=== PATIENT | female | born 1950 | race Caucasian/White ===

== ENCOUNTER 2018-05-21 06:51 | Day surgery (SDC) | payer MEDICARE, OTHER, SELFPAY ==
--- NOTE | 2018-05-21 | PATH_ITS ---
[facility] Accession Number: [id number] . 01 Material submitted: . RANDOM COLON . 02 Diagnosis: Random Colon, Biopsies: Colonic mucosa with no diagnostic abnormality. Negative for active or microscopic colitis. Negative for granulomata, dysplasia and malignancy. . I/05/22/2018 . 02 Electronically signed: . Reji Taylor MD, PhD, Pathologist NPI- [id number] . 01 Gross description: . Received one formalin-filled container, labeled with the patient's name, labeled random colon, are multiple less than 0.1 cm to 0.4 cm portions of tissue, which are filtered, wrapped, and entirely submitted in one cassette. ([id number]) /FRR . 02 Pathologist provided ICD-10: R19.7 . 02 CPT . 761609 Performed at: [facility] [address], [place], [place] [id number] MD Dax Hyatt MD Phone: [phone] Performed at: 02 [facility] [address] [place], [place] [id number] MD Dinesh Okeefe MD Phone: [phone]
[2018-05-21 07:34] VITALS: BP 144/83; PULSE 80; RESP 15; TEMP 36; O2SAT 99
[2018-05-21] MEDS: SODIUM CHLORIDE 0.9% 1,000 ML 21 ML IV (07:40)
--- NOTE | 2018-05-21 07:46 | PM.HP.1 ---
History of Present Illness Date Patient Seen: 05/21/18 Time Patient Seen: 07:46 Chief complaint: [id number] COLONOSCOPY Narrative: 68-year-old female who recently presented with frequent loose stools. No associated nausea or vomiting. She has been tolerating a diet otherwise. No association between meals in her symptoms. No melena, hematochezia, bright red blood per rectum. No nocturnal symptoms. She has some occasional abdominal cramping but this is immediately relieved when she moves her bowels. No significant urgency or no history of incontinence. Denies fever or chills. Patient History Medical History Allergic rhinitis (Chronic 1979) Cataracts, bilateral (Chronic ~01/2018) Infertility (Chronic 1981) Kidney disease (Chronic 1960) Osteopenia (Chronic 2005) Rosacea (Chronic 1990) Chickenpox (Resolved 1954) Fractures (Resolved 2015) Measles (Resolved 1954) Mumps (Resolved 1955) Surgical History Hx of urethrotomy (Resolved 10/1970) Family & Social History Family History: Reviewed 05/21/18 by Vladislav Tyler MD Social History: household members spouse Meds Home Medications Medication Instructions Recorded Confirmed Type terbinafine HCl [Lamisil] 250 mg PO QDAY #30 tab 02/23/18 05/21/18 Rx alendronate 35 mg PO Q WEEK #12 tab 03/29/18 05/21/18 Rx calcium carbonate [Calcium 600] 1,200 mg PO BID 05/21/18 05/21/18 History cholecalciferol (vitamin D3) 1,000 unit PO DAILY 05/21/18 05/21/18 History [Vitamin D3] turmeric (bulk) [Curcumin] 500 mg MISCELLANEOUS BID 05/21/18 05/21/18 History Allergies Allergy/AdvReac Type Severity Reaction Status Date / Time Sulfa (Sulfonamide Allergy Unknown Rash Verified 05/21/18 07:15 Antibiotics) [SULFA (SULFONAMIDE ANTIBIOTICS)] Review of Systems Review of Systems All systems reviewed & are unremarkable except as noted in HPI and below and other (Review of systems has not changed since her initial evaluation March 28, 2018. Please see that document for further details.) Exam Vital Signs (past 8 hours): - 05/21/18 07:34 Temperature 96.8 F L Pulse Rate 80 Respiratory Rate 15 Blood Pressure 144/83 H Pulse Oximetry 99 Oxygen Delivery Method Room Air Narrative Exam Narrative: Thin elderly female in no acute distress. Alert oriented x3. is at the bedside. Neck supple Chest clear to auscultation. Regular rate and rhythm Abdomen soft, nondistended, nontender Extremities show no clubbing, cyanosis, or edema Objective Labs Labs: No recent laboratory or radiographic studies for review Assessment & Plan (1) Change in bowel habits: Current visit: Yes Status: Acute Plan: Assessment/Plan Narrative: 68-year-old female with recent change in bowel habits. Her last colonoscopy was 12 years ago. There is the possibility of colitis or other issues such as neoplastic changes. Colonoscopy is currently recommended. Technical details of the procedure were discussed. Risks, benefits, alternatives were explained. Risks including but not limited to sedation, aspiration, bleeding, pain, missed lesion, incomplete examination, need for further radiographic studies, need for further diagnostic studies, colonic perforation, need for major abdominal surgery, and all attendant risks of major surgery were explained in detail. All questions were answered to her satisfaction, and she voiced understanding. Consent was placed on the chart. We will proceed as above.
--- NOTE | 2018-05-21 07:50 | PM.PREOP ---
Pre-operative Note Interval Note Pre-op Check: History & Physical Reviewed by Physician, Exam Performed and History & Physical exam performed today H&P completed within 30 days and has changed as indicated here:: Patient seen and examined again today. No changes since her initial H and P from March 28, 2018. New document updated and on the chart. Proceed with colonoscopy today as planned. ASA Class (for procedural sedation): I
--- NOTE | 2018-05-21 07:57 | SUR.OPER ---
Lateral on padded OR bed, head on pillow, gel axillary roll in place, bottom leg bent with gel pad under knee to foot, upper leg straight and supported with pillows. Upper arm supported by pillows and secured over bottom arm to padded arm board. Safety belt at hip, tape over blanket lower legs.
[2018-05-21] MEDS: fentaNYL 250 MCG/5 ML INJ IV (08:14)
[2018-05-21] MEDS: MIDAZOLAM 5 MG/5 ML VIAL IV (08:14)
--- NOTE | 2018-05-21 08:24 | PM.OP.ENDO ---
Operative Date/Time/Diagnoses - Date of procedure: 05/21/18 Time of procedure: 08:24 Pre-op diagnosis: Change in bowel habits Post-op diagnosis: same Procedure & Clinicians Study performed: 1. Sedation per surgeon 2. Colonoscopy with cold forceps biopsy Same procedure as scheduled: Yes Indications: 68-year-old female who presented recently with change in bowel habits. It had also been 12 years since her last colonoscopy. Endoscopy was once again recommended. Surgeon: Vladisalv Tyler Procedure Notes SCOAP/Timeout: Yes Procedure in detail: After obtaining informed consent, the patient was brought to the GI suite and placed in the left lateral decubitus position on the examination table. After placement of appropriate monitors, the patient was given incremental doses of Versed and Fentanyl until an appropriate level of sedation was achieved. A time out was held per SCOAP protocol. A digital rectal examination was performed and did not reveal any masses or obstructing lesions. The colonoscope was gently passed into the patient's anus and the entire colon navigated to the level of the cecum with minimal difficulty. Terminal ileum was intubated and noted to be grossly normal. Once in the cecum, the scope was withdrawn being sure to go before and beyond all mucosal folds and prominences and get an excellent examination. The findings are noted above. At the level of the rectal vault, the scope was retroflexed and the internal anal canal was examined. The scope was straightened and air aspirated from the colon. The instrument was removed from the patient's body and the procedure was concluded. The patient was allowed to awaken from sedation without difficulty and taken to the post-anesthesia care unit in good condition. Scope withdrawal time: 8:29 min Sedation minutes: 22 Findings: diverticulosis and other findings (Grossly normal colon, rectum, and terminal ileum) Specimen(s): other (Random colon biopsies) Recommendations: Colonscopy in 10 years and High fiber diet Plan for aftercare: 1. Discharged home Follow up: weeks (Two weeks in surgery clinic) Disposition: PACU
[2018-05-21 08:25] VITALS: BP 105/71; PULSE 75; RESP 12; TEMP 37.3; O2SAT 99
[2018-05-21 08:30] VITALS: BP 105/69; PULSE 72; RESP 13; O2SAT 99
[2018-05-21 08:41] VITALS: BP 106/67; PULSE 74; RESP 15; TEMP 36.8; O2SAT 100
== END 2018-05-21 08:56 | disposition home or self-care (01) ==
PROVIDERS: Family Provider Specialist; PCP Family Medicine; Visit Provider Surgery
PROC: 0DJD8ZZ Inspection of Lower Intestinal Tract, Via Natural or Artificial Opening Endoscopic (ICD-10-PCS; CPT 45378; principal; 2018-05-21 07:45)
DX: R19.4 Change in bowel habit (principal); K57.30 Diverticulosis of large intestine without perforation or abscess without bleeding
CPT/HCPCS: 45380; 99152; J2250; J3010

== ENCOUNTER → 2018-08-09 12:38 | Outpatient (CLI) | payer MEDICARE, OTHER, SELFPAY ==
--- NOTE | 2018-08-09 12:40 | DI.MG.S_ITS ---
BILATERAL DIGITAL DIAGNOSTIC MAMMOGRAM 3D/2D SHORT-TERM FOLLOW-UP: 08/09/2018 CLINICAL: Patient returns for 6 month follow up of right breast, due for bilateral exam. Comparison is made to exams dated: 01/17/2018 mammogram, 05/15/2017 mammogram, and 05/10/2017 mammogram - [facility]. The tissue of both breasts is heterogeneously dense. This may lower the sensitivity of mammography. Previously noted 3 mm cluster of calcifications in the right breast at 11 o'clock posterior depth remains stable. There are subtle calcifications in the upper left breast at 12 o'clock position posterior depth that are slightly more prominent than on comparison exams. No other significant masses, calcifications, or other findings are seen in either breast. IMPRESSION: PROBABLY BENIGN Previously noted 3 mm cluster of calcifications in the right breast at 11 o'clock posterior depth remains stable and are probably benign. Subtle calcifications in the upper left breast at 12 o'clock position posterior depth are also probably benign. A follow-up diagnostic mammogram in 6 months is recommended to demonstrate stability of both areas. This exam was interpreted at Station ID: [id number]. NOTE: For mammograms, a report in lay terms will be sent to the patient. Approximately 15% of breast malignancies will not be visualized mammographically. In the management of a palpable breast mass, a negative mammogram must not discourage biopsy of a clinically suspicious lesion. Electronically Signed By: Anshul Cummings M.D. ecl/:08/09/2018 21:56:11 copy to: JAMES CANSECO letter sent: Followup Recommended ACR BI-RADS Category 3: Probably benign [id number]
== END ==
PROVIDERS: PCP Family Medicine; Visit Provider Family Medicine
DX: R92.1 Mammographic calcification found on diagnostic imaging of breast (principal)
CPT/HCPCS: 77066; G0279

== ENCOUNTER → 2019-02-07 14:41 | Outpatient (CLI) | payer MEDICARE, OTHER, SELFPAY ==
--- NOTE | 2019-02-07 14:43 | DI.MG.S_ITS ---
BILATERAL DIGITAL DIAGNOSTIC MAMMOGRAM 3D/2D SHORT-TERM FOLLOW-UP: 02/07/2019 CLINICAL: Short term follow up for bilateral breasts. Comparison is made to exams dated: 08/09/2018 mammogram, 01/17/2018 mammogram, 05/15/2017 mammogram, 05/10/2017 mammogram, and 03/14/2016 mammogram - [facility]. The tissue of both breasts is heterogeneously dense. This may lower the sensitivity of mammography. There is a stable benign fine calcification in the right breast middle depth central to the nipple seen on the craniocaudal view only. There is a possible 5 mm oval mass with an indistinct margin and punctate calcifications in the left breast posterior depth superior region seen on the mediolateral oblique view only. No other significant masses or calcifications are seen in either breast. IMPRESSION: INCOMPLETE: NEEDS ADDITIONAL IMAGING EVALUATION The possible 5 mm oval mass in the left breast posterior depth superior region seen on the mediolateral oblique view only likely represents focal glandular tissue or a degenerating fibroadenoma and is indeterminate. An ultrasound is recommended which was immediately performed following this exam. Right breast calcifications are stable, benign appearance. This exam was interpreted at Station ID: [id number]. NOTE: For mammograms, a report in lay terms will be sent to the patient. Approximately 15% of breast malignancies will not be visualized mammographically. In the management of a palpable breast mass, a negative mammogram must not discourage biopsy of a clinically suspicious lesion. Electronically Signed By: Rosalina valladares/:02/07/2019 18:22:14 copy to: JAMES RECIO BI-RADS Category 0: Incomplete [id number]
--- NOTE | 2019-02-07 16:33 | DI.US.S_ITS ---
LIMITED ULTRASOUND OF LEFT BREAST: 02/07/2019 CLINICAL: Additional evaluation requested from prior study. Family history of breast cancer. Comparison is made to exams dated: 02/07/2019 mammogram, 08/09/2018 mammogram, and 05/10/2017 mammogram - [facility]. Ultrasound of the left breast 12 o'clock region in the area of mammographic finding was performed. No abnormalities were seen sonographically in the left breast. IMPRESSION: PROBABLY BENIGN No sonographic correlate to mammographic finding of possible mass in 12o'clock region with few punctate calcifications. The mammographic finding is likely benign dense glandular tissue adjacent to benign calcifications. A follow-up mammogram in 6 months is recommended to demonstrate stability of this area is recommended. Findings and recommendations were conveyed to the patient by the technologist. This exam was interpreted at Station ID: [id number]. Electronically Signed By: Rosalina valladares/:02/07/2019 18:26:11 copy to: JAMES CANSECO letter sent: Followup Recommended Ultrasound BI-RADS: 3 Probably benign
== END ==
PROVIDERS: PCP Family Medicine; Visit Provider Family Medicine
DX: R92.8 Other abnormal and inconclusive findings on diagnostic imaging of breast (principal)
CPT/HCPCS: 76642; 77066; G0279

== ENCOUNTER → 2019-04-04 14:28 | Outpatient (CLI) | payer MEDICARE, OTHER, SELFPAY ==
--- NOTE | 2019-04-04 14:31 | DI.RAD.S_ITS ---
PROCEDURE: XR LUMBAR SPINE 2-3V INDICATIONS: low back pain left hip pain TECHNIQUE: 3 views of the lumbar spine were acquired. COMPARISON: None. FINDINGS: Bones: No fracture or focal osseous destruction. Mild dextrocurvature. Moderate narrowing of the L2-L3 disc space. There is mild narrowing of the remaining lumbar disc spaces. Straightening of the normal lumbar lordosis. Soft tissues: Overlying bowel gas pattern is normal. No suspicious soft tissue calcifications. IMPRESSION: Diffuse lumbar spondylosis and facet arthropathy, most pronounced at L2-L3. Mild dextrocurvature. Dictated by: Chucky Vazquez M.D. on 04/04/2019 at 16:02 Approved by: Chucky Vazquez M.D. on 04/04/2019 at 16:03
--- NOTE | 2019-04-04 14:31 | DI.RAD.S_ITS ---
PROCEDURE: XR HIP W PEL IF DONE LT 2V INDICATIONS: low back pain TECHNIQUE: 2 views of the hip were acquired. COMPARISON: None. FINDINGS: Bones: No fractures or dislocations. No suspicious bony lesions. The visualized pelvic ring appears intact. Presumed bone projecting in the left iliac wing. At the left hip joint, Scattered degenerative subchondral sclerosis and spurring. Mild joint space narrowing. Soft tissues: No suspicious soft tissue calcifications or masses. IMPRESSION: Mild left hip joint degeneration. Dictated by: Chucky Vazquez M.D. on 04/04/2019 at 16:01 Approved by: Chucky Vazquez M.D. on 04/04/2019 at 16:02
[2019-04-04 15:19] LABS: Add Manual Diff / Slide Review NO; Basophils Absolute Auto 0 /uL (0-100); Basophils Percent Auto 0.5 % (0-2); Eosinophils Absolute Auto 0 /uL (0-450); Eosinophils Percent Auto 0.5 % (2-4); Hematocrit 41.2 % (36-46); Hemoglobin 13.4 g/dL (12.0-16.0); Lymphocytes Absolute Auto 1400 /uL (1100-4500); Lymphocytes Percent Auto 24.6 % (25-40); Mean Corpuscular HGB Conc 32.4 % (30-36); Mean Corpuscular Hemoglobin 29.9 PG (26-34); Monocytes Absolute Auto 500 /uL (0-900); Monocytes Percent Auto 8.4 % (3-14); Neutrophils Absolute Auto 3900 /uL (1500-7000); Platelet Count 280 X10^3/uL (150-400); Red Blood Cell Count 4.48 X10^6/uL (4.0-5.2); Red Cell Distribution Width 13.5 % (11.6-14.8); White Blood Cell Count 5.9 X10^3/uL (4.5-11.0)
[2019-04-04 15:59] LABS: Appearance Urine UA CLEAR; Bilirubin Urine UA NEGATIVE (NEGATIVE); Color Urine UA YELLOW; Glucose Urine UA NEGATIVE (Negative); Ketones Urine UA NEGATIVE (NEGATIVE); Leukocyte Esterase Urine UA NEGATIVE (NEGATIVE); Nitrite Urine UA NEGATIVE (Negative); Occult Blood Urine UA NEGATIVE (Negative); Protein Urine UA NEGATIVE (Negative); Specific Gravity Urine UA >=1.030 (1.000-1.035); Urobilinogen Urine UA 0.2 E.U./dL (0.2)
[2019-04-04 16:01] LABS: Alanine Aminotransferase 34 IU/L (9-52); Albumin 4.3 g/dL (3.5-5.0); Albumin Globulin Ratio 1.3 (1.0-2.8); Alkaline Phosphatase 64 U/L (38-126); Aspartate Aminotransferase 29 IU/L (14-36); BUN Creatinine Ratio 19.2 (6-22); Bilirubin Total 0.5 mg/dL (0.2-1.3); Blood Urea Nitrogen 23 mg/dL (7-17); Calcium 9.8 mg/dL (8.4-10.2); Carbon Dioxide 29 mmol/L (22-32); Chloride 101 mmol/L (98-107); Cholesterol 148 mg/dL (140-199); Estimated Glomerular Filt Rate 44.7 mL/min (>60); Globulin 3.2 g/dL (1.7-4.1); Glucose 116 mg/dL (80-110); HDL Cholesterol 56 mg/dL (40-60); HEMOLYSIS < 15 (0-50); LDL Cholesterol Calculated 75 mg/dL (<100); Potassium 4.4 mmol/L (3.4-5.1); Sodium 139 mmol/L (137-145); Total Protein 7.5 g/dL (6.3-8.2); Triglycerides 86 mg/dL (35-150)
[2019-04-04 16:31] LABS: Thyroid Stimulating Hormone 1.47 uIU/mL (0.47-4.68)
== END ==
PROVIDERS: PCP Family Medicine; Visit Provider Family Medicine
DX: M54.5 Low back pain (principal); M25.552 Pain in left hip; Z13.220 Encounter for screening for lipoid disorders; Z13.29 Encounter for screening for other suspected endocrine disorder; Z51.81 Encounter for therapeutic drug level monitoring
CPT/HCPCS: 36415; 72100; 73502; 80053; 80061; 81003; 84443; 85025

== ENCOUNTER → 2019-04-24 10:17 | Outpatient (CLI) | payer MEDICARE, OTHER, SELFPAY | PROVIDERS: PCP Family Medicine; Visit Provider Family Medicine | DX: M85.852 Other specified disorders of bone density and structure, left thigh (principal); Z78.0 Asymptomatic menopausal state; Z82.62 Family history of osteoporosis | CPT/HCPCS: 77080 ==

== ENCOUNTER → 2019-07-03 09:44 | Outpatient (CLI) | payer MEDICARE, OTHER, SELFPAY ==
[2019-07-03 11:05] LABS: Alanine Aminotransferase 22 IU/L (9-52); Albumin 4.2 g/dL (3.5-5.0); Albumin Globulin Ratio 1.2 (1.0-2.8); Alkaline Phosphatase 68 U/L (38-126); Aspartate Aminotransferase 37 IU/L (14-36); BUN Creatinine Ratio 28.8 (6-22); Bilirubin Total 0.8 mg/dL (0.2-1.3); Blood Urea Nitrogen 23 mg/dL (7-17); Calcium 9.4 mg/dL (8.4-10.2); Carbon Dioxide 30 mmol/L (22-32); Chloride 103 mmol/L (98-107); Estimated Glomerular Filt Rate > 60.0 mL/min (>60); Globulin 3.6 g/dL (1.7-4.1); Glucose 89 mg/dL (80-110); HEMOLYSIS < 15 (0-50); Sodium 140 mmol/L (137-145); Total Protein 7.8 g/dL (6.3-8.2)
[2019-07-03 11:08] LABS: Hemoglobin A1C% w Est Avg Glu 5.2 % (4.0-6.0)
== END ==
PROVIDERS: PCP Family Medicine; Visit Provider Family Medicine
DX: N28.9 Disorder of kidney and ureter, unspecified (principal); R73.9 Hyperglycemia, unspecified
CPT/HCPCS: 36415; 80053; 83036

== ENCOUNTER → 2019-08-15 13:13 | Outpatient (CLI) | payer MEDICARE, OTHER, SELFPAY ==
--- NOTE | 2019-08-15 13:14 | DI.MG.S_ITS ---
BILATERAL DIGITAL DIAGNOSTIC MAMMOGRAM 3D/2D SHORT-TERM FOLLOW-UP: 08/15/2019 CLINICAL: Patient returns for a 6 month follow up of the left breast. Comparison is made to exams dated: 08/09/2018 mammogram, 02/07/2019 mammogram, and 05/10/2017 mammogram - [facility]. The tissue of both breasts is heterogeneously dense. This may lower the sensitivity of mammography. There are grouped fine calcifications in the left breast at 12 o'clock posterior depth. These are not significantly changed. There also is an irregular equal density asymmetry with an indistinct margin in the left breast at 12 o'clock posterior depth. This is less prominent. No other significant masses, calcifications, or other findings are seen in either breast. IMPRESSION: PROBABLY BENIGN The grouped fine calcifications in the left breast at 12 o'clock posterior depth are probably benign. The irregular equal density asymmetry in the left breast at 12 o'clock posterior depth is probably benign. A follow-up mammogram in 12 months is recommended. This exam was interpreted at Station ID: [id number]. NOTE: For mammograms, a report in lay terms will be sent to the patient. Approximately 15% of breast malignancies will not be visualized mammographically. In the management of a palpable breast mass, a negative mammogram must not discourage biopsy of a clinically suspicious lesion. Electronically Signed By: Dax patten/shahram:08/15/2019 14:03:25 copy to: JAMES CANSECO letter sent: Followup Recommended ACR BI-RADS Category 3: Probably benign [id number]
== END ==
PROVIDERS: PCP Family Medicine; Visit Provider Family Medicine
DX: R92.8 Other abnormal and inconclusive findings on diagnostic imaging of breast (principal); R92.1 Mammographic calcification found on diagnostic imaging of breast; N64.89 Other specified disorders of breast
CPT/HCPCS: 77066; G0279

== ENCOUNTER 2019-11-21 08:15 | Outpatient (RCR) | payer MEDICARE, OTHER, SELFPAY ==
--- NOTE | 2019-09-13 15:20 | PT.OIE ---
Current Diagnoses Pain in unspecified hip (09/13/19) Low back pain (09/13/19) Muscle weakness (generalized) (09/13/19) Other symptoms and signs involving the musculoskeletal system (09/13/19) Past Medical History (Last Reviewed 05/22/18 @ 12:38 by Amanda Gong DO) Allergic rhinitis (Chronic 1979) Cataracts, bilateral (Chronic ~01/2018) Change in bowel habits (Acute) Chickenpox (Resolved 1954) Fractures (Resolved 2015) Infertility (Chronic 1981) Kidney disease (Chronic 1960) Measles (Resolved 1954) Mumps (Resolved 1955) Osteopenia (Chronic 2005) Rosacea (Chronic 1990) Past Surgical History (Last Reviewed 05/22/18 @ 12:38 by Amanda Gong DO) Hx of urethrotomy (Resolved 10/1970) Visit Care Team Role Provider Type Amanda Gong DO Attending Provider Physician Primary Care Provider Specialty: [facility] Address: [address] [place] [address], [address], [facility] Email: [email or web address] Physical Therapy Initial Evaluation PT-OP-A Visit Information Start: 09/12/19 16:46 Freq: Status: Active Protocol: Document 09/13/19 09:59 LRN (Rec: 09/13/19 11:17 LRN [id number]) Out-Patient Physical Therapy Visit Information Visit Information Visit Type Initial Evaluation Visit Start Time 10:00 Visit Stop Time 10:52 Total Visit Minutes 52 Visit Number 1 Number of ROLLER PRINTER Visits 0 Evaluation Information Evaluation Date 09/13/19 Precautions Precautions Osteopenia PT-OP-B Current Condition Start: 09/12/19 16:46 Freq: Status: Active Protocol: Document 09/13/19 09:59 LRN (Rec: 09/13/19 11:17 LRN [id number]) Current Condition History of Current Condition Onset Date 2 yrs ago in back, 1 yr ago hip pain Current Complaints L hip and back pain. History of Current Condition Intermittent L LBP. L back pain worse in prolonged sitting (>1hr) having stiffness getting out of car. Standing cooking more than 1 hours, can't finish cooking due to pain and fatigue. Can' t lawn sprinkler servicer one place on cement due to pain. Prior Treatments and Tests X-ray of hip: Mild L hip jt degeneration. X-ray of LB: Diffuse lumbar spondylosis and facet arthropathy, pronounced L2-L3. Treatment Goals Patient/Caregiver Goals Pt goal is to do exercise that eliminates back pain and arthritis pain in the hip. Prior Functional Status Baseline Function- ADL's Independent Baseline Function- Mobility Independent Baseline Function- Gait Normal Baseline Function- Recreation/Hobbies Exercised in the gym. Current Functional Impairments (Reported) Functional Limitations- ADL's Sleeping limited due to L hip pain waking. Functional Limitations- Mobility/Gait None Functional Limitations- Recreation/ Can't do any movements Hobbies requiring rotation of the L hip or lumbar extension due to pain. Personal Factors Other Personal Factors That May Effect Osteopenia Therapy/Recovery PT-OP-C Subjective Start: 09/12/19 16:46 Freq: Status: Active Protocol: Document 09/13/19 09:59 LRN (Rec: 09/13/19 11:17 LRN [id number]) Patient Questionnaires Oswestry Low Back Index Oswestry Score 6 Oswestry Impairment 1 to 19% Impaired (Score 1-19) OP-PT Pain Assessment Pain Assessment Grid Paper Pain Assessment Grid Completed Yes Location L Pain Location Details L SIJ radiating to lateral hip when standing or sit in car > 1hr. Intensity 3 Description Aching,Dull Variations/Patterns Dull back , Hip burning Comments Pain Comments Sitting pain comes in long car rides or in chairs without a back support. Standing pain is alleviated by sitting to rest. PT-OP-H Neuro Start: 09/12/19 16:46 Freq: Status: Active Protocol: Document 09/13/19 09:59 LRN (Rec: 09/13/19 11:17 LRN [id number]) Sensation Evaluation Gross Sensation Gross Sensation WNL Deep Tendon Reflex & Clonus Assessment Deep Tendon Reflex Bilateral Achilles Deep Tendon Reflex 2+ Normal Bilateral Patellar Deep Tendon Reflex 3+ Normal But Brisk PT-OP-J Posture/Palpation/Skin Start: 09/12/19 16:46 Freq: Status: Active Protocol: Document 09/13/19 09:59 LRN (Rec: 09/13/19 11:17 LRN [id number]) Posture Evaluation Comments Posture Comments Standing: Slight anterior tilt of pelvis, decreased lordosis, low gluteal muscle tone, slight forward head, L calcaneal EV. Palpation Assessment Location L lower back Palpation Location L PSIS and sacral FELICIANO Palpation Details In standing and supine: is deep and tender. PT-OP-K Range of Motion Start: 09/12/19 16:46 Freq: Status: Active Protocol: Document 09/13/19 09:59 LRN (Rec: 09/13/19 11:17 LRN [id number]) Lumbar Spine Range of Motion Lumbar Spine Active Degrees Testing Position Standing Flexion 75 Extension 7 Rotation Left 20 Rotation Right 30 Lateral Flexion Left 5 Lateral Flexion Right 7 ROM Limitations Soft Tissue Tightness Hip Goniometric Range of Motion Hip Right Passive Testing Position Supine Straight Leg Raise 80 Internal Rotation 35 External Rotation 50 Left Passive Testing Position Supine Straight Leg Raise 80 Internal Rotation 42 External Rotation 50 PT-OP-L Special Tests Start: 09/12/19 16:46 Freq: Status: Active Protocol: Document 09/13/19 09:59 LRN (Rec: 09/13/19 11:17 LRN [id number]) Special Tests Hip Special Tests Gapping Test Test Results Neg L Lateral Compression Test Test Results Positive L Log Roll Test Test Results Neg L Stinchfield Resisted Hip Flexion Test Results Neg L MARSHALL Test Results Positive on L Comments Pain at L SIJ PT-OP-M Strength Start: 09/12/19 16:46 Freq: Status: Active Protocol: Document 09/13/19 09:59 LRN (Rec: 09/13/19 11:17 LRN [id number]) Trunk Strength Trunk Manual Muscle Testing Rotation Left 3 Fair Rotation Right 5 Normal Core Stabilization Unable to maintain neutral core with MMT of R LE, most notably weak with rotation. Hip Strength Hip Manual Muscle Testing Right Flexion (L2) 4+ Good+ Extension (S1) 4+ Good+ Abduction 5 Normal Adduction 5 Normal Left Flexion (L2) 5 Normal Extension (S1) 5 Normal Abduction 5 Normal Adduction 5 Normal PT-OP-Q Treatments Start: 09/12/19 16:46 Freq: Status: Active Protocol: Document 09/13/19 09:59 LRN (Rec: 09/13/19 11:17 LRN [id number]) Therapeutic Exercises Supine Exercises TA tightening Supine Exercise Name TA tightening with awareness training and L & R training Reps/Minutes 3 Manual Therapy Treatment Joint Mobilizations L Innominate Joint L SIJ Direction Correction for an anteriorly rot L innominate Body Position Supine Reps/Duration 5 Comments MET. Self-Care/Home Management Treatment Education Patient Education Home Exercise Program,Joint Protection,Pain Management Activities Self-Care/Home Management Activities I/S pt in proper body mechanics for getting in/off plinth. Pt I/S in TA awareness training for Home program. I/S pt in equal WBing with standing posturing. I/S pt in use of cryotherapy PT-OP-T Assessment and Plan Start: 09/12/19 16:46 Freq: Status: Active Protocol: Document 09/13/19 09:59 LRN (Rec: 09/13/19 11:17 LRN [id number]) Physical Therapy Assessment Rehab Potential Rehabilitation Potential Excellent Evaluation Complexity Number of Personal Factors/Comorbidities 1-2 Number of Body Systems Impaired 4 or More Clinical Presentation at Evaluation Stable Impairments Impairments Activity Tolerance,Functional Activities,Pain,ROM,Strength Goals Three Impairment Sleeping limited due to L hip pain waking. Jail Goal (LTG) Pt will improve her ability to sleep at night with waking no more than 1x during the night . LTG Duration 11/12/19 Two Impairment Arthritis pain in the L hip Short Term Goal (STG) Improve bilateral hip mobility and normalize muscle tone of the L hip. STG Duration 10/15/19 Jail Goal (LTG) Eliminate L hip pain. LTG Duration 11/12/19 One Impairment Pt lacks appropriate self care HEP Jail Goal (LTG) Pt will be independent with a self care HEP. 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 She has a mild anterior rotated L innominate and sacrum that appears R rotated. She is guarded in her lumbar paraspinals and hip musculature with limited hip mobility and trunk strength. She does not at this time appear to have lumbar involvement but she does seem to have pelvic instability due to lack of core control. The pt will benefit from skilled physical therapy to improve pelvic symmetry and stability in order for her to improve her quality of sleep and help her to return to an independent exercise program to help manage her health. Physical Therapy Plan Frequency and Duration Frequency of Treatment 2x/Week Duration of Treatment 8 weeks. Plan of Care Start Date 09/13/19 Plan of Care End Date 11/12/19 Therapeutic Interventions Therapeutic Interventions Home Exercise Program,Joint Mobilizations,Manual Therapy, Neuromuscular Re-education, Patient/Caregiver Education, Self-Care/Home Management,Soft Tissue Mobilization,Taping, Therapeutic Activities, Therapeutic Exercises Modalities Cold Pack/Ice Massage,Electric Stimulation,Hot Packs, Ultrasound Next Visit Focus/Plan Next Note Type Treatment Note Next Visit Plan Corrections for pelvic obliquity followed by stabilization and ROM exercises. Manual mob to correct for birthing pattern of the Sacrum and SIJ. K- tape for stability at the L SIJ, STM of L hip, monitor for L2-L3 involvement.
--- NOTE | 2019-09-16 14:21 | PT.OTN ---
Current Diagnoses Pain in unspecified hip (09/16/19) Low back pain (09/16/19) Muscle weakness (generalized) (09/16/19) Other symptoms and signs involving the musculoskeletal system (09/16/19) Physical Therapy Treatment Note PT-OP-A Visit Information Start: 09/12/19 16:46 Freq: Status: Active Protocol: Document 09/16/19 12:45 LRN (Rec: 09/16/19 13:54 LRN [id number]) Out-Patient Physical Therapy Visit Information Visit Information Visit Type Treatment Note Visit Start Time 12:45 Visit Stop Time 13:30 Total Visit Minutes 45 Visit Number 2 Number of MICRO COMPUTER DATA PROCESSOR Visits 0 Evaluation Information Evaluation Date 09/13/19 Precautions Precautions Osteopenia PT-OP-B Current Condition Start: 09/12/19 16:46 Freq: Status: Active Protocol: Document 09/13/19 09:59 LRN (Rec: 09/13/19 11:17 LRN [id number]) Current Condition History of Current Condition Onset Date 2 yrs ago in back, 1 yr ago hip pain Current Complaints L hip and back pain. History of Current Condition Intermittent L LBP. L back pain worse in prolonged sitting (>1hr) having stiffness getting out of car. Standing cooking more than 1 hours, can't finish cooking due to pain and fatigue. 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 Prior Treatments and Tests X-ray of hip: Mild L hip jt degeneration. X-ray of LB: Diffuse lumbar spondylosis and facet arthropathy, pronounced L2-L3. Treatment Goals Patient/Caregiver Goals Pt goal is to do exercise that eliminates back pain and arthritis pain in the hip. Prior Functional Status Baseline Function- ADL's Independent Baseline Function- Mobility Independent Baseline Function- Gait Normal Baseline Function- Recreation/Hobbies Exercised in the gym. Current Functional Impairments (Reported) Functional Limitations- ADL's Sleeping limited due to L hip pain waking. Functional Limitations- Mobility/Gait None Functional Limitations- Recreation/ Can't do any movements Hobbies requiring rotation of the L hip or lumbar extension due to pain. Personal Factors Other Personal Factors That May Effect Osteopenia Therapy/Recovery PT-OP-C Subjective Start: 09/12/19 16:46 Freq: Status: Active Protocol: Document 09/16/19 12:45 LRN (Rec: 09/16/19 13:54 LRN [id number]) OP-PT Subjective Patient Comments Patient Comments Sore after the treatment last session. Still sore, but nothing new. Had body flow class this morning. PT-OP-H Neuro Start: 09/12/19 16:46 Freq: Status: Active Protocol: Document 09/13/19 09:59 LRN (Rec: 09/13/19 11:17 LRN [id number]) Sensation Evaluation Gross Sensation Gross Sensation WNL Deep Tendon Reflex & Clonus Assessment Deep Tendon Reflex Bilateral Achilles Deep Tendon Reflex 2+ Normal Bilateral Patellar Deep Tendon Reflex 3+ Normal But Brisk PT-OP-J Posture/Palpation/Skin Start: 09/12/19 16:46 Freq: Status: Active Protocol: Document 09/13/19 09:59 LRN (Rec: 09/13/19 11:17 LRN [id number]) Posture Evaluation Comments Posture Comments Standing: Slight anterior tilt of pelvis, decreased lordosis, low gluteal muscle tone, slight forward head, L calcaneal EV. Palpation Assessment Location L lower back Palpation Location L PSIS and sacral FELICIANO Palpation Details In standing and supine: is deep and tender. PT-OP-K Range of Motion Start: 09/12/19 16:46 Freq: Status: Active Protocol: Document 09/13/19 09:59 LRN (Rec: 09/13/19 11:17 LRN [id number]) Lumbar Spine Range of Motion Lumbar Spine Active Degrees Testing Position Standing Flexion 75 Extension 7 Rotation Left 20 Rotation Right 30 Lateral Flexion Left 5 Lateral Flexion Right 7 ROM Limitations Soft Tissue Tightness Hip Goniometric Range of Motion Hip Right Passive Testing Position Supine Straight Leg Raise 80 Internal Rotation 35 External Rotation 50 Left Passive Testing Position Supine Straight Leg Raise 80 Internal Rotation 42 External Rotation 50 PT-OP-L Special Tests Start: 09/12/19 16:46 Freq: Status: Active Protocol: Document 09/13/19 09:59 LRN (Rec: 09/13/19 11:17 LRN [id number]) Special Tests Hip Special Tests Gapping Test Test Results Neg L Lateral Compression Test Test Results Positive L Log Roll Test Test Results Neg L Stinchfield Resisted Hip Flexion Test Results Neg L MARSHALL Test Results Positive on L Comments Pain at L SIJ PT-OP-M Strength Start: 09/12/19 16:46 Freq: Status: Active Protocol: Document 09/13/19 09:59 LRN (Rec: 09/13/19 11:17 LRN [id number]) Trunk Strength Trunk Manual Muscle Testing Rotation Left 3 Fair Rotation Right 5 Normal Core Stabilization Unable to maintain neutral core with MMT of R LE, most notably weak with rotation. Hip Strength Hip Manual Muscle Testing Right Flexion (L2) 4+ Good+ Extension (S1) 4+ Good+ Abduction 5 Normal Adduction 5 Normal Left Flexion (L2) 5 Normal Extension (S1) 5 Normal Abduction 5 Normal Adduction 5 Normal PT-OP-Q Treatments Start: 09/12/19 16:46 Freq: Status: Active Protocol: Document 09/16/19 12:45 LRN (Rec: 09/16/19 13:54 LRN [id number]) Cardio Equipment Bicycle (Upright) Duration (Minutes) 8 Resistance 3 Seat Position 5 Other Focus on core stabilization Gym Equipment Cable Column (Body Solid) Hip Adduction Details Seat 1 hole showing. Focus on core stab. Resistance 10 Reps/Time 3' Therapeutic Exercises Supine Exercises LE Roll in/outs Supine Exercise Name LE roll in/out Side bilateral Reps/Minutes 10x Comments Focused on core stab with symmetrical leg movement. BKFO Supine Exercise Name Bilateral BKFO Side bilateral Resistance 4, 2, 1 Equipment Used ankle weights Reps/Minutes 4' Comments Pt was not able to stabilize L /S and pelvis during ex, stopped. Knee to opposite shoulder Supine Exercise Name Piriformis stretch Side bilateral Reps/Minutes 3' TA tightening Supine Exercise Name TA tightening with awareness training for equal contraction . Reps/Minutes 10x holding 10 Manual Therapy Treatment Soft Tissue Mobilization Piriformis Body Location L Piriformis Mobilization Type Strumming Intensity/Depth Moderate Body Position Prone L upper gluteal Body Location L upper gluteal Mobilization Type Strumming,Sustained Pressure Intensity/Depth Moderate Body Position Prone Joint Mobilizations Sacrum Joint Correction for a L rotated sacrum (prone) and birthing pattern (supine). Grade II Reps/Duration 13 Taping L Upper Gluteal Body Location L Upper Gluteal Treatment Focus Relaxation of L Gluteau Austin PSIS>Grtr Trochanter Type of Tape Kinesio Tape Skin Inspection Good & healthy Self-Care/Home Management Treatment Activities Self-Care/Home Management Activities I/S pt in LE Roll in/out with progression to BKFO if she is able to perform w/even movment . I/S pt to continue with TA awareness. PT-OP-T Assessment and Plan Start: 09/12/19 16:46 Freq: Status: Active Protocol: Document 09/16/19 12:45 LRN (Rec: 09/16/19 13:54 LRN [id number]) Physical Therapy Assessment Goals Three Impairment Sleeping limited due to L hip pain waking. Half-Way Goal (LTG) Pt will improve her ability to sleep at night with waking no more than 1x during the night . LTG Duration 11/12/19 Two Impairment Arthritis pain in the L hip Short Term Goal (STG) Improve bilateral hip mobility and normalize muscle tone of the L hip. STG Duration 10/15/19 Half-Way Goal (LTG) Eliminate L hip pain. LTG Duration 11/12/19 One Impairment Pt lacks appropriate self care HEP Manager [place] Goal (LTG) Pt will be independent with a self care HEP. LTG Duration 11/12/19 Assessment Summary Assessment No pain at end of therapy. K- tape not bothering pt. Pt has weak R TA and is not able to maintain neutral with Dual Vivek exercise. Physical Therapy Plan Frequency and Duration Frequency of Treatment Every Other Week Duration of Treatment 8 weeks. Plan of Care Start Date 09/13/19 Plan of Care End Date 11/12/19 Next Visit Focus/Plan Next Note Type Treatment Note Next Visit Plan Monitor pelvic obliquity and correct as needed, followed by stabilization and ROM exercises. Manual mob to Sacrum and L SIJ as needed, K- tape for stability at the L SIJ, monitor for L2-L3 involvement, no indication at this time of involvement.
--- NOTE | 2019-09-20 14:02 | PT.OTN ---
Current Diagnoses Pain in unspecified hip (09/20/19) Low back pain (09/20/19) Muscle weakness (generalized) (09/20/19) Other symptoms and signs involving the musculoskeletal system (09/20/19) Physical Therapy Treatment Note PT-OP-A Visit Information Start: 09/12/19 16:46 Freq: Status: Active Protocol: Document 09/20/19 14:02 SP (Rec: 09/20/19 14:20 SP [id number]) Out-Patient Physical Therapy Visit Information Visit Information Visit Type Treatment Note Visit Start Time 13:00 Visit Stop Time 14:02 Total Visit Minutes 62 Visit Number 3 Number of SPACE SCIENCES DIRECTOR Visits 1 PT-OP-B Current Condition Start: 09/12/19 16:46 Freq: Status: Active Protocol: Document 09/13/19 09:59 LRN (Rec: 09/13/19 11:17 LRN [id number]) Current Condition History of Current Condition Onset Date 2 yrs ago in back, 1 yr ago hip pain Current Complaints L hip and back pain. History of Current Condition Intermittent L LBP. L back pain worse in prolonged sitting (>1hr) having stiffness getting out of car. Standing cooking more than 1 hours, can't finish cooking due to pain and fatigue. 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 Prior Treatments and Tests X-ray of hip: Mild L hip jt degeneration. X-ray of LB: Diffuse lumbar spondylosis and facet arthropathy, pronounced L2-L3. Treatment Goals Patient/Caregiver Goals Pt goal is to do exercise that eliminates back pain and arthritis pain in the hip. Prior Functional Status Baseline Function- ADL's Independent Baseline Function- Mobility Independent Baseline Function- Gait Normal Baseline Function- Recreation/Hobbies Exercised in the gym. Current Functional Impairments (Reported) Functional Limitations- ADL's Sleeping limited due to L hip pain waking. Functional Limitations- Mobility/Gait None Functional Limitations- Recreation/ Can't do any movements Hobbies requiring rotation of the L hip or lumbar extension due to pain. Personal Factors Other Personal Factors That May Effect Osteopenia Therapy/Recovery PT-OP-C Subjective Start: 09/12/19 16:46 Freq: Status: Active Protocol: Document 09/20/19 14:02 SP (Rec: 09/20/19 14:20 SP [id number]) OP-PT Subjective Patient Comments Patient Comments Pt stated her R LB and R hip was noticing improvement since last 2nd treatment but this morning the -03/06 pain is back over posterolateral R hip and tightness anterior R hip. Pt stated wasn't sure if the K taping helped at all. The skin is still pinkish, removed the next day as instructed. PT-OP-H Neuro Start: 09/12/19 16:46 Freq: Status: Active Protocol: Document 09/13/19 09:59 LRN (Rec: 09/13/19 11:17 LRN [id number]) Sensation Evaluation Gross Sensation Gross Sensation WNL Deep Tendon Reflex & Clonus Assessment Deep Tendon Reflex Bilateral Achilles Deep Tendon Reflex 2+ Normal Bilateral Patellar Deep Tendon Reflex 3+ Normal But Brisk PT-OP-J Posture/Palpation/Skin Start: 09/12/19 16:46 Freq: Status: Active Protocol: Document 09/13/19 09:59 LRN (Rec: 09/13/19 11:17 LRN [id number]) Posture Evaluation Comments Posture Comments Standing: Slight anterior tilt of pelvis, decreased lordosis, low gluteal muscle tone, slight forward head, L calcaneal EV. Palpation Assessment Location L lower back Palpation Location L PSIS and sacral FELICIANO Palpation Details In standing and supine: is deep and tender. PT-OP-K Range of Motion Start: 09/12/19 16:46 Freq: Status: Active Protocol: Document 09/13/19 09:59 LRN (Rec: 09/13/19 11:17 LRN [id number]) Lumbar Spine Range of Motion Lumbar Spine Active Degrees Testing Position Standing Flexion 75 Extension 7 Rotation Left 20 Rotation Right 30 Lateral Flexion Left 5 Lateral Flexion Right 7 ROM Limitations Soft Tissue Tightness Hip Goniometric Range of Motion Hip Right Passive Testing Position Supine Straight Leg Raise 80 Internal Rotation 35 External Rotation 50 Left Passive Testing Position Supine Straight Leg Raise 80 Internal Rotation 42 External Rotation 50 PT-OP-L Special Tests Start: 09/12/19 16:46 Freq: Status: Active Protocol: Document 09/13/19 09:59 LRN (Rec: 09/13/19 11:17 LRN [id number]) Special Tests Hip Special Tests Gapping Test Test Results Neg L Lateral Compression Test Test Results Positive L Log Roll Test Test Results Neg L Stinchfield Resisted Hip Flexion Test Results Neg L MARSHALL Test Results Positive on L Comments Pain at L SIJ PT-OP-M Strength Start: 09/12/19 16:46 Freq: Status: Active Protocol: Document 09/13/19 09:59 LRN (Rec: 09/13/19 11:17 LRN [id number]) Trunk Strength Trunk Manual Muscle Testing Rotation Left 3 Fair Rotation Right 5 Normal Core Stabilization Unable to maintain neutral core with MMT of R LE, most notably weak with rotation. Hip Strength Hip Manual Muscle Testing Right Flexion (L2) 4+ Good+ Extension (S1) 4+ Good+ Abduction 5 Normal Adduction 5 Normal Left Flexion (L2) 5 Normal Extension (S1) 5 Normal Abduction 5 Normal Adduction 5 Normal PT-OP-Q Treatments Start: 09/12/19 16:46 Freq: Status: Active Protocol: Document 09/20/19 14:02 SP (Rec: 09/20/19 14:20 SP [id number]) Cardio Equipment Bicycle (Upright) Duration (Minutes) 8 Resistance 3 Seat Position 5 Other Focus on core stabilization, upright posture Therapeutic Exercises Supine Exercises Stanton stretch Supine Exercise Name Hip flexor stretch Side bilateral Reps/Minutes 30 x3 Comments Cued PPT to neutral Core march Supine Exercise Name Trans Ab march Side bilateral Equipment Used AROM Reps/Minutes 3x8 Comments cued for PPT neutral pelvis, noted opposite iliam protract with leg lift BKFO Supine Exercise Name Bilateral BKFO Side bilateral Reps/Minutes 4' Comments Pt was able to stabilize with cues for posterior pelvic tilt to neutral Knee to opposite shoulder Supine Exercise Name Piriformis stretch Side bilateral Reps/Minutes 3' Sitting Exercises figure 4 Sitting Exercise Name Pirformis stretch Side bilateral Reps/Minutes 5 reps x30 sec R and L Standing Exercises hip flexor Side bilateral Equipment Used rail Reps/Minutes 30 x2 Comments cued neutral pelvis and allow heel lift with focused anterior hip stretch hip TB Standing Exercise Name Hip ABD, Ext Side bilateral Resistance level 1 TB Reps/Minutes 3x5 Comments cued neutral pelvis, Self-Care/Home Management Treatment Activities Self-Care/Home Management Activities rolling pin to quad, ITB, anterior hip to decrease tightness. Cuing for trans ab activation posterior pelvic tilt to neutral for decreased L SI discomfort with positive feedback. PT-OP-T Assessment and Plan Start: 09/12/19 16:46 Freq: Status: Active Protocol: Document 09/20/19 14:02 SP (Rec: 09/20/19 14:20 SP [id number]) Physical Therapy Assessment Assessment Summary Assessment no pain at the end of therapy. Pt reported the exercises, stretches and cuing seemed to help. Cued for trans ab activation to facilitate PPT to neutral with reported decreased discomfort into L and R SI area. Provided hand outs for self recall. Physical Therapy Plan Frequency and Duration Frequency of Treatment Every Other Week Duration of Treatment 8 weeks. Plan of Care Start Date 09/13/19 Plan of Care End Date 11/12/19 Therapeutic Interventions Therapeutic Interventions Home Exercise Program,Joint Mobilizations,Manual Therapy, Neuromuscular Re-education, Patient/Caregiver Education, Self-Care/Home Management,Soft Tissue Mobilization,Taping, Therapeutic Activities, Therapeutic Exercises Modalities Cold Pack/Ice Massage,Electric Stimulation,Hot Packs, Ultrasound Next Visit Focus/Plan Next Note Type Treatment Note Next Visit Plan Monitor pelvic obliquity and correct as needed, followed by stabilization and ROM exercises. Manual mob to Sacrum and L SIJ as needed, K- tape for stability at the L SIJ, monitor for L2-L3 involvement, no indication at this time of involvement.
--- NOTE | 2019-09-23 14:05 | PT.OTN ---
Current Diagnoses Pain in unspecified hip (09/23/19) Low back pain (09/23/19) Muscle weakness (generalized) (09/23/19) Other symptoms and signs involving the musculoskeletal system (09/23/19) Physical Therapy Treatment Note PT-OP-A Visit Information Start: 09/12/19 16:46 Freq: Status: Active Protocol: Document 09/23/19 13:47 SP (Rec: 09/23/19 14:05 SP [id number]) Out-Patient Physical Therapy Visit Information Visit Information Visit Type Treatment Note Visit Start Time 13:02 Visit Stop Time 13:47 Total Visit Minutes 45 Visit Number 4 Number of UNEMPLOYMENT INSURANCE DIRECTOR Visits 2 PT-OP-B Current Condition Start: 09/12/19 16:46 Freq: Status: Active Protocol: Document 09/13/19 09:59 LRN (Rec: 09/13/19 11:17 LRN [id number]) Current Condition History of Current Condition Onset Date 2 yrs ago in back, 1 yr ago hip pain Current Complaints L hip and back pain. History of Current Condition Intermittent L LBP. L back pain worse in prolonged sitting (>1hr) having stiffness getting out of car. Standing cooking more than 1 hours, can't finish cooking due to pain and fatigue. 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 Prior Treatments and Tests X-ray of hip: Mild L hip jt degeneration. X-ray of LB: Diffuse lumbar spondylosis and facet arthropathy, pronounced L2-L3. Treatment Goals Patient/Caregiver Goals Pt goal is to do exercise that eliminates back pain and arthritis pain in the hip. Prior Functional Status Baseline Function- ADL's Independent Baseline Function- Mobility Independent Baseline Function- Gait Normal Baseline Function- Recreation/Hobbies Exercised in the gym. Current Functional Impairments (Reported) Functional Limitations- ADL's Sleeping limited due to L hip pain waking. Functional Limitations- Mobility/Gait None Functional Limitations- Recreation/ Can't do any movements Hobbies requiring rotation of the L hip or lumbar extension due to pain. Personal Factors Other Personal Factors That May Effect Osteopenia Therapy/Recovery PT-OP-C Subjective Start: 09/12/19 16:46 Freq: Status: Active Protocol: Document 09/23/19 13:47 SP (Rec: 09/23/19 14:05 SP [id number]) OP-PT Subjective Patient Comments Patient Comments Pt stated her R hip has been better, was able to ride in the car about 1.5 hrs with good tolerance, improved. Patient Reported Progress Improving PT-OP-H Neuro Start: 09/12/19 16:46 Freq: Status: Active Protocol: Document 09/13/19 09:59 LRN (Rec: 09/13/19 11:17 LRN [id number]) Sensation Evaluation Gross Sensation Gross Sensation WNL Deep Tendon Reflex & Clonus Assessment Deep Tendon Reflex Bilateral Achilles Deep Tendon Reflex 2+ Normal Bilateral Patellar Deep Tendon Reflex 3+ Normal But Brisk PT-OP-J Posture/Palpation/Skin Start: 09/12/19 16:46 Freq: Status: Active Protocol: Document 09/13/19 09:59 LRN (Rec: 09/13/19 11:17 LRN [id number]) Posture Evaluation Comments Posture Comments Standing: Slight anterior tilt of pelvis, decreased lordosis, low gluteal muscle tone, slight forward head, L calcaneal EV. Palpation Assessment Location L lower back Palpation Location L PSIS and sacral FELICIANO Palpation Details In standing and supine: is deep and tender. PT-OP-K Range of Motion Start: 09/12/19 16:46 Freq: Status: Active Protocol: Document 09/13/19 09:59 LRN (Rec: 09/13/19 11:17 LRN [id number]) Lumbar Spine Range of Motion Lumbar Spine Active Degrees Testing Position Standing Flexion 75 Extension 7 Rotation Left 20 Rotation Right 30 Lateral Flexion Left 5 Lateral Flexion Right 7 ROM Limitations Soft Tissue Tightness Hip Goniometric Range of Motion Hip Right Passive Testing Position Supine Straight Leg Raise 80 Internal Rotation 35 External Rotation 50 Left Passive Testing Position Supine Straight Leg Raise 80 Internal Rotation 42 External Rotation 50 PT-OP-L Special Tests Start: 09/12/19 16:46 Freq: Status: Active Protocol: Document 09/13/19 09:59 LRN (Rec: 09/13/19 11:17 LRN [id number]) Special Tests Hip Special Tests Gapping Test Test Results Neg L Lateral Compression Test Test Results Positive L Log Roll Test Test Results Neg L Stinchfield Resisted Hip Flexion Test Results Neg L MARSHALL Test Results Positive on L Comments Pain at L SIJ PT-OP-M Strength Start: 09/12/19 16:46 Freq: Status: Active Protocol: Document 09/13/19 09:59 LRN (Rec: 09/13/19 11:17 LRN [id number]) Trunk Strength Trunk Manual Muscle Testing Rotation Left 3 Fair Rotation Right 5 Normal Core Stabilization Unable to maintain neutral core with MMT of R LE, most notably weak with rotation. Hip Strength Hip Manual Muscle Testing Right Flexion (L2) 4+ Good+ Extension (S1) 4+ Good+ Abduction 5 Normal Adduction 5 Normal Left Flexion (L2) 5 Normal Extension (S1) 5 Normal Abduction 5 Normal Adduction 5 Normal PT-OP-Q Treatments Start: 09/12/19 16:46 Freq: Status: Active Protocol: Document 09/23/19 13:47 SP (Rec: 09/23/19 14:05 SP [id number]) Cardio Equipment Bicycle (Upright) Duration (Minutes) 8 Resistance 4 Seat Position 5 Other Focus on core stabilization, upright posture Therapeutic Exercises Supine Exercises Stanton stretch Supine Exercise Name Hip flexor stretch Side bilateral Reps/Minutes 30 x3 Comments Cued PPT to neutral Core march Supine Exercise Name Trans Ab march Side bilateral Equipment Used AROM Reps/Minutes 3x8 Comments alternating single to double leg raise then reverse let down, PPT, core act BKFO Supine Exercise Name Bilateral BKFO Side bilateral Reps/Minutes 4' Comments Good pelvic alignment and pacing Knee to opposite shoulder Supine Exercise Name Piriformis stretch Side bilateral Reps/Minutes 3' TA tightening Supine Exercise Name TA tightening with awareness training for equal contraction . Reps/Minutes 10x holding 10 Comments incorporated with ab march Standing Exercises Band walk Standing Exercise Name Lateral, foward/backward Side bilateral Equipment Used Level 1 Tb looop Reps/Minutes 10 ft x2 laps each direction Comments Occasional cue to L PPT, level pelvis (no hip hike) hip TB Standing Exercise Name Hip ABD, Ext Side bilateral Resistance level 1 TB Reps/Minutes 3x5 Comments Cued level pelvis, changed to loop Manual Therapy Treatment Taping L Upper Gluteal Body Location L Upper Gluteal Treatment Focus Relaxation of L Gluteau Austin PSIS>Grtr Trochanter Type of Tape Kinesio Tape Skin Inspection Good & healthy PT-OP-T Assessment and Plan Start: 09/12/19 16:46 Freq: Status: Active Protocol: Document 09/23/19 13:47 SP (Rec: 09/23/19 14:05 SP [id number]) Physical Therapy Assessment Assessment Summary Assessment Pt reported little LB discomfort during more challenged single to DL ab lift january but went away post cue for neutral pelvis, slow 2nd leg lift transition up / down end range. Pt welcoming to K taping today, wanting to compare to first tx with PT if helped glut relaxation. Physical Therapy Plan Frequency and Duration Frequency of Treatment Every Other Week Duration of Treatment 8 weeks. Plan of Care Start Date 09/13/19 Plan of Care End Date 11/12/19 Therapeutic Interventions Therapeutic Interventions Home Exercise Program,Joint Mobilizations,Manual Therapy, Neuromuscular Re-education, Patient/Caregiver Education, Self-Care/Home Management,Soft Tissue Mobilization,Taping, Therapeutic Activities, Therapeutic Exercises Modalities Cold Pack/Ice Massage,Electric Stimulation,Hot Packs, Ultrasound Next Visit Focus/Plan Next Note Type Treatment Note Next Visit Plan Monitor pelvic obliquity and correct as needed, followed by stabilization and ROM exercises. Manual mob to Sacrum and L SIJ as needed, K- tape for stability at the L SIJ, monitor for L2-L3 involvement, no indication at this time of involvement.
--- NOTE | 2019-09-26 15:59 | PT.OTN ---
Current Diagnoses Pain in unspecified hip (09/26/19) Low back pain (09/26/19) Muscle weakness (generalized) (09/26/19) Other symptoms and signs involving the musculoskeletal system (09/26/19) Physical Therapy Treatment Note PT-OP-A Visit Information Start: 09/12/19 16:46 Freq: Status: Active Protocol: Document 09/26/19 12:47 LRN (Rec: 09/26/19 13:34 LRN [id number]) Out-Patient Physical Therapy Visit Information Visit Information Visit Type Treatment Note Visit Start Time 12:47 Visit Stop Time 13:32 Total Visit Minutes 45 Visit Number 5 Number of LEARNING SERVICES COORDINATOR Visits 2 Evaluation Information Evaluation Date 09/13/19 Precautions Precautions Osteopenia PT-OP-B Current Condition Start: 09/12/19 16:46 Freq: Status: Active Protocol: Document 09/13/19 09:59 LRN (Rec: 09/13/19 11:17 LRN [id number]) Current Condition History of Current Condition Onset Date 2 yrs ago in back, 1 yr ago hip pain Current Complaints L hip and back pain. History of Current Condition Intermittent L LBP. L back pain worse in prolonged sitting (>1hr) having stiffness getting out of car. Standing cooking more than 1 hours, can't finish cooking due to pain and fatigue. 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 Prior Treatments and Tests X-ray of hip: Mild L hip jt degeneration. X-ray of LB: Diffuse lumbar spondylosis and facet arthropathy, pronounced L2-L3. Treatment Goals Patient/Caregiver Goals Pt goal is to do exercise that eliminates back pain and arthritis pain in the hip. Prior Functional Status Baseline Function- ADL's Independent Baseline Function- Mobility Independent Baseline Function- Gait Normal Baseline Function- Recreation/Hobbies Exercised in the gym. Current Functional Impairments (Reported) Functional Limitations- ADL's Sleeping limited due to L hip pain waking. Functional Limitations- Mobility/Gait None Functional Limitations- Recreation/ Can't do any movements Hobbies requiring rotation of the L hip or lumbar extension due to pain. Personal Factors Other Personal Factors That May Effect Osteopenia Therapy/Recovery PT-OP-C Subjective Start: 09/12/19 16:46 Freq: Status: Active Protocol: Document 09/26/19 12:47 LRN (Rec: 09/26/19 13:34 LRN [id number]) OP-PT Subjective Patient Comments Patient Comments Things are going really well. No pain today. Can get out of car easier. Hip and back doesn't hurt like it used to. Pt not hurting daily. Feels 80% better. PT-OP-H Neuro Start: 09/12/19 16:46 Freq: Status: Active Protocol: Document 09/13/19 09:59 LRN (Rec: 09/13/19 11:17 LRN [id number]) Sensation Evaluation Gross Sensation Gross Sensation WNL Deep Tendon Reflex & Clonus Assessment Deep Tendon Reflex Bilateral Achilles Deep Tendon Reflex 2+ Normal Bilateral Patellar Deep Tendon Reflex 3+ Normal But Brisk PT-OP-J Posture/Palpation/Skin Start: 09/12/19 16:46 Freq: Status: Active Protocol: Document 09/13/19 09:59 LRN (Rec: 09/13/19 11:17 LRN [id number]) Posture Evaluation Comments Posture Comments Standing: Slight anterior tilt of pelvis, decreased lordosis, low gluteal muscle tone, slight forward head, L calcaneal EV. Palpation Assessment Location L lower back Palpation Location L PSIS and sacral FELICIANO Palpation Details In standing and supine: is deep and tender. PT-OP-K Range of Motion Start: 09/12/19 16:46 Freq: Status: Active Protocol: Document 09/13/19 09:59 LRN (Rec: 09/13/19 11:17 LRN [id number]) Lumbar Spine Range of Motion Lumbar Spine Active Degrees Testing Position Standing Flexion 75 Extension 7 Rotation Left 20 Rotation Right 30 Lateral Flexion Left 5 Lateral Flexion Right 7 ROM Limitations Soft Tissue Tightness Hip Goniometric Range of Motion Hip Right Passive Testing Position Supine Straight Leg Raise 80 Internal Rotation 35 External Rotation 50 Left Passive Testing Position Supine Straight Leg Raise 80 Internal Rotation 42 External Rotation 50 PT-OP-L Special Tests Start: 09/12/19 16:46 Freq: Status: Active Protocol: Document 09/13/19 09:59 LRN (Rec: 09/13/19 11:17 LRN [id number]) Special Tests Hip Special Tests Gapping Test Test Results Neg L Lateral Compression Test Test Results Positive L Log Roll Test Test Results Neg L Stinchfield Resisted Hip Flexion Test Results Neg L MARSHALL Test Results Positive on L Comments Pain at L SIJ PT-OP-M Strength Start: 09/12/19 16:46 Freq: Status: Active Protocol: Document 09/13/19 09:59 LRN (Rec: 09/13/19 11:17 LRN [id number]) Trunk Strength Trunk Manual Muscle Testing Rotation Left 3 Fair Rotation Right 5 Normal Core Stabilization Unable to maintain neutral core with MMT of R LE, most notably weak with rotation. Hip Strength Hip Manual Muscle Testing Right Flexion (L2) 4+ Good+ Extension (S1) 4+ Good+ Abduction 5 Normal Adduction 5 Normal Left Flexion (L2) 5 Normal Extension (S1) 5 Normal Abduction 5 Normal Adduction 5 Normal PT-OP-Q Treatments Start: 09/12/19 16:46 Freq: Status: Active Protocol: Document 09/26/19 12:47 LRN (Rec: 09/26/19 13:34 LRN [id number]) Therapeutic Exercises Supine Exercises Deep breathing for rib mvmt Supine Exercise Name Deep Breath to get greater R rib excursion to normalize Reps/Minutes 2' LE Roll in/outs Supine Exercise Name LE roll in/out, w/PF contraction & deep breathing Side bilateral Reps/Minutes 10x Comments Focused on core stab with symmetrical leg movement. BKFO Supine Exercise Name Bilateral BKFO Side bilateral Equipment Used 4#, 5# Reps/Minutes 4' Comments Mild dysf mvmt pelvic alignment w/4#, poor stability w/5#. Knee to opposite shoulder Supine Exercise Name Piriformis stretch - Cross over legs Side bilateral Reps/Minutes 3' TA tightening Supine Exercise Name TA tightening with awareness training for equal contraction . Reps/Minutes 10x holding 10 Comments incorporated with vasyl heel slides Sidelying Exercises Clamshell Sidelying Exercise Name Clamshell Side bilateral Reps/Minutes 10 x each Manual Therapy Treatment Joint Mobilizations L rib Joint L ribs Direction Inferior glide Grade II Body Position Supine R ribs Joint Excursion laterally Grade I Body Position Supine Comments physical cuing to assist excursion on deep breathing. Sacrum Joint Correction for a R rotated sacrum Grade II Body Position Prone Comments MET L Innominate Joint Correction for inflare Grade II Body Position Supine PT-OP-T Assessment and Plan Start: 09/12/19 16:46 Freq: Status: Active Protocol: Document 09/26/19 12:47 LRN (Rec: 09/26/19 13:34 LRN [id number]) Physical Therapy Assessment Goals Three Impairment Sleeping limited due to L hip pain waking. Senior Care Goal (LTG) Pt will improve her ability to sleep at night with waking no more than 1x during the night . LTG Duration 11/12/19 Two Impairment Arthritis pain in the L hip Short Term Goal (STG) Improve bilateral hip mobility and normalize muscle tone of the L hip. STG Duration 10/15/19 Senior Care Goal (LTG) Eliminate L hip pain. LTG Duration 11/12/19 One Impairment Pt lacks appropriate self care HEP Vehicle Dynamics Engineer Goal (LTG) Pt will be independent with a self care HEP. LTG Duration 11/12/19 Assessment Summary Assessment R leg is very slightly long, corrected with Sacral mob and correction of Inflared R innominate. Pt has elevated L ribs and poor rib movement with deep breathing. BKFO weakness on right with jerky movements noted. Physical Therapy Plan Frequency and Duration Frequency of Treatment Every Other Week Duration of Treatment 8 weeks. Plan of Care Start Date 09/13/19 Plan of Care End Date 11/12/19 Next Visit Focus/Plan Next Note Type Treatment Note Next Visit Plan Assess progress towards goals. Monitor pelvic obliquity and correct as needed, progress pelvic and core stabilization, and ROM exercises. Manual mob to Sacrum and L SIJ as needed, K-tape for stability at the L SIJ, monitor for L2- L3 involvement, no indication at this time of involvement.
--- NOTE | 2019-09-30 13:30 | PT.OTN ---
Current Diagnoses Pain in unspecified hip (09/30/19) Low back pain (09/30/19) Muscle weakness (generalized) (09/30/19) Other symptoms and signs involving the musculoskeletal system (09/30/19) Physical Therapy Treatment Note PT-OP-A Visit Information Start: 09/12/19 16:46 Freq: Status: Active Protocol: Document 09/30/19 12:50 LRN (Rec: 09/30/19 13:34 LRN [id number]) Out-Patient Physical Therapy Visit Information Visit Information Visit Type Treatment Note Visit Start Time 12:50 Visit Stop Time 13:32 Total Visit Minutes 42 Visit Number 6 Number of MUSIC PROMOTER Visits 2 Evaluation Information Evaluation Date 09/13/19 Precautions Precautions Osteopenia PT-OP-B Current Condition Start: 09/12/19 16:46 Freq: Status: Active Protocol: Document 09/13/19 09:59 LRN (Rec: 09/13/19 11:17 LRN [id number]) Current Condition History of Current Condition Onset Date 2 yrs ago in back, 1 yr ago hip pain Current Complaints L hip and back pain. History of Current Condition Intermittent L LBP. L back pain worse in prolonged sitting (>1hr) having stiffness getting out of car. Standing cooking more than 1 hours, can't finish cooking due to pain and fatigue. 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 Prior Treatments and Tests X-ray of hip: Mild L hip jt degeneration. X-ray of LB: Diffuse lumbar spondylosis and facet arthropathy, pronounced L2-L3. Treatment Goals Patient/Caregiver Goals Pt goal is to do exercise that eliminates back pain and arthritis pain in the hip. Prior Functional Status Baseline Function- ADL's Independent Baseline Function- Mobility Independent Baseline Function- Gait Normal Baseline Function- Recreation/Hobbies Exercised in the gym. Current Functional Impairments (Reported) Functional Limitations- ADL's Sleeping limited due to L hip pain waking. Functional Limitations- Mobility/Gait None Functional Limitations- Recreation/ Can't do any movements Hobbies requiring rotation of the L hip or lumbar extension due to pain. Personal Factors Other Personal Factors That May Effect Osteopenia Therapy/Recovery PT-OP-C Subjective Start: 09/12/19 16:46 Freq: Status: Active Protocol: Document 09/30/19 12:50 LRN (Rec: 09/30/19 13:34 LRN [id number]) OP-PT Subjective Patient Comments Patient Comments Minimal pain, not constant. A lot less pain compared to when come in. PT-OP-H Neuro Start: 09/12/19 16:46 Freq: Status: Active Protocol: Document 09/13/19 09:59 LRN (Rec: 09/13/19 11:17 LRN [id number]) Sensation Evaluation Gross Sensation Gross Sensation WNL Deep Tendon Reflex & Clonus Assessment Deep Tendon Reflex Bilateral Achilles Deep Tendon Reflex 2+ Normal Bilateral Patellar Deep Tendon Reflex 3+ Normal But Brisk PT-OP-J Posture/Palpation/Skin Start: 09/12/19 16:46 Freq: Status: Active Protocol: Document 09/13/19 09:59 LRN (Rec: 09/13/19 11:17 LRN [id number]) Posture Evaluation Comments Posture Comments Standing: Slight anterior tilt of pelvis, decreased lordosis, low gluteal muscle tone, slight forward head, L calcaneal EV. Palpation Assessment Location L lower back Palpation Location L PSIS and sacral FELICIANO Palpation Details In standing and supine: is deep and tender. PT-OP-K Range of Motion Start: 09/12/19 16:46 Freq: Status: Active Protocol: Document 09/13/19 09:59 LRN (Rec: 09/13/19 11:17 LRN [id number]) Lumbar Spine Range of Motion Lumbar Spine Active Degrees Testing Position Standing Flexion 75 Extension 7 Rotation Left 20 Rotation Right 30 Lateral Flexion Left 5 Lateral Flexion Right 7 ROM Limitations Soft Tissue Tightness Hip Goniometric Range of Motion Hip Right Passive Testing Position Supine Straight Leg Raise 80 Internal Rotation 35 External Rotation 50 Left Passive Testing Position Supine Straight Leg Raise 80 Internal Rotation 42 External Rotation 50 PT-OP-L Special Tests Start: 09/12/19 16:46 Freq: Status: Active Protocol: Document 09/13/19 09:59 LRN (Rec: 09/13/19 11:17 LRN [id number]) Special Tests Hip Special Tests Gapping Test Test Results Neg L Lateral Compression Test Test Results Positive L Log Roll Test Test Results Neg L Stinchfield Resisted Hip Flexion Test Results Neg L MARSHALL Test Results Positive on L Comments Pain at L SIJ PT-OP-M Strength Start: 09/12/19 16:46 Freq: Status: Active Protocol: Document 09/13/19 09:59 LRN (Rec: 09/13/19 11:17 LRN [id number]) Trunk Strength Trunk Manual Muscle Testing Rotation Left 3 Fair Rotation Right 5 Normal Core Stabilization Unable to maintain neutral core with MMT of R LE, most notably weak with rotation. Hip Strength Hip Manual Muscle Testing Right Flexion (L2) 4+ Good+ Extension (S1) 4+ Good+ Abduction 5 Normal Adduction 5 Normal Left Flexion (L2) 5 Normal Extension (S1) 5 Normal Abduction 5 Normal Adduction 5 Normal PT-OP-Q Treatments Start: 09/12/19 16:46 Freq: Status: Active Protocol: Document 09/30/19 12:50 LRN (Rec: 09/30/19 13:34 LRN [id number]) Therapeutic Exercises Supine Exercises Leg lift off wall Supine Exercise Name Leg lift off T-Ball Side bilateral Reps/Minutes 10x Comments Training for breathe work Trunk rotation Supine Exercise Name Trunk rot w/feet on T-Ball Side bilateral Reps/Minutes 10x each direction Hands/Knees Push Supine Exercise Name Hands/Knees Push Reps/Minutes 10 hold x 10 TA w/Spencer steps outs together Supine Exercise Name TA w/Spencer together step outs Reps/Minutes 15x TA tightening Supine Exercise Name TA with Spencer heel slides Reps/Minutes 10x Manual Therapy Treatment Joint Mobilizations Sacrum Joint Correction for a R rotated sacrum Grade II Body Position Prone Comments MET Self-Care/Home Management Treatment Education Patient Education Home Exercise Program Other Education Issued & reviewed HEP: Hands/ knees push, supine trunk rotation PT-OP-R Modalities Start: 09/12/19 16:46 Freq: Status: Active Protocol: Document 09/30/19 12:50 LRN (Rec: 09/30/19 13:34 LRN [id number]) Ultrasound Therapy Treatment L Sacral border/GM Treatment Duration (minutes) 8 Patient Position Prone Frequency Setting (mHz) 3 Duty Cycle 50% Intensity Setting (w/cm2) 1.0 PT-OP-T Assessment and Plan Start: 09/12/19 16:46 Freq: Status: Active Protocol: Document 09/30/19 12:50 LRN (Rec: 09/30/19 13:34 LRN [id number]) Physical Therapy Assessment Goals Three Impairment Sleeping limited due to L hip pain waking. Assisted Goal (LTG) Pt will improve her ability to sleep at night with waking no more than 1x during the night . LTG Duration 11/12/19 (09/30/19: GOAL MET) Two Impairment Arthritis pain in the L hip Short Term Goal (STG) Improve bilateral hip mobility and normalize muscle tone of the L hip. STG Duration 10/15/19 Assisted Goal (LTG) Eliminate L hip pain. LTG Duration 11/12/19 (09/30/19: Progressing, pain is less) One Impairment Pt lacks appropriate self care HEP Food Services Director Goal (LTG) Pt will be independent with a self care HEP. LTG Duration 11/12/19 (09/30/19: Progressing) Progress Towards Goals Progress Towards Goals Progressing Toward Goals Progress Comments Goal 1: GOAL MET. Goal 2: STG: Not measured. LTG: Progressing, pain lessening. Goal 3: HEP progressing Assessment Summary Assessment Legs appear equal in length and symmetrical with innominate flare position and AP positioning to start. Goal 1 met, pt is not waking at night due to hip pain. Pt having discomfort in L PSIS to start. Pt needed training on breathe work with exercise. +response to US, no pain after treatment. Physical Therapy Plan Frequency and Duration Frequency of Treatment Every Other Week Duration of Treatment 8 weeks. Plan of Care Start Date 09/13/19 Plan of Care End Date 11/12/19 Next Visit Focus/Plan Next Note Type Treatment Note Next Visit Plan Assess hip ROM towards goal. Monitor pelvic obliquity and sacrum, correct if needed; progress pelvic and core stabilization, and ROM exercises. Might try K-tape for stability/facilitation piriformis at the L SIJ & R Piriformis for relaxation.
--- NOTE | 2019-10-03 16:18 | PT.OTN ---
Current Diagnoses Pain in unspecified hip (10/03/19) Low back pain (10/03/19) Muscle weakness (generalized) (10/03/19) Other symptoms and signs involving the musculoskeletal system (10/03/19) Physical Therapy Treatment Note PT-OP-A Visit Information Start: 09/12/19 16:46 Freq: Status: Active Protocol: Document 10/03/19 12:48 LRN (Rec: 10/03/19 13:33 LRN [id number]) Out-Patient Physical Therapy Visit Information Visit Information Visit Type Treatment Note Visit Start Time 12:48 Visit Stop Time 13:33 Total Visit Minutes 45 Visit Number 7 Number of OPERATIONS INSPECTOR Visits 2 Evaluation Information Evaluation Date 09/13/19 Precautions Precautions Osteopenia PT-OP-B Current Condition Start: 09/12/19 16:46 Freq: Status: Active Protocol: Document 09/13/19 09:59 LRN (Rec: 09/13/19 11:17 LRN [id number]) Current Condition History of Current Condition Onset Date 2 yrs ago in back, 1 yr ago hip pain Current Complaints L hip and back pain. History of Current Condition Intermittent L LBP. L back pain worse in prolonged sitting (>1hr) having stiffness getting out of car. Standing cooking more than 1 hours, can't finish cooking due to pain and fatigue. 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 Prior Treatments and Tests X-ray of hip: Mild L hip jt degeneration. X-ray of LB: Diffuse lumbar spondylosis and facet arthropathy, pronounced L2-L3. Treatment Goals Patient/Caregiver Goals Pt goal is to do exercise that eliminates back pain and arthritis pain in the hip. Prior Functional Status Baseline Function- ADL's Independent Baseline Function- Mobility Independent Baseline Function- Gait Normal Baseline Function- Recreation/Hobbies Exercised in the gym. Current Functional Impairments (Reported) Functional Limitations- ADL's Sleeping limited due to L hip pain waking. Functional Limitations- Mobility/Gait None Functional Limitations- Recreation/ Can't do any movements Hobbies requiring rotation of the L hip or lumbar extension due to pain. Personal Factors Other Personal Factors That May Effect Osteopenia Therapy/Recovery PT-OP-C Subjective Start: 09/12/19 16:46 Freq: Status: Active Protocol: Document 10/03/19 12:48 LRN (Rec: 10/03/19 13:33 LRN [id number]) OP-PT Subjective Patient Comments Patient Comments Sore from last exercise session down L LE. Not constant, depends on how she moves when present she rates it at 4/10. Twisting to knees to left and arms to right with legs on T-Ball. PT-OP-H Neuro Start: 09/12/19 16:46 Freq: Status: Active Protocol: Document 09/13/19 09:59 LRN (Rec: 09/13/19 11:17 LRN [id number]) Sensation Evaluation Gross Sensation Gross Sensation WNL Deep Tendon Reflex & Clonus Assessment Deep Tendon Reflex Bilateral Achilles Deep Tendon Reflex 2+ Normal Bilateral Patellar Deep Tendon Reflex 3+ Normal But Brisk PT-OP-J Posture/Palpation/Skin Start: 09/12/19 16:46 Freq: Status: Active Protocol: Document 09/13/19 09:59 LRN (Rec: 09/13/19 11:17 LRN [id number]) Posture Evaluation Comments Posture Comments Standing: Slight anterior tilt of pelvis, decreased lordosis, low gluteal muscle tone, slight forward head, L calcaneal EV. Palpation Assessment Location L lower back Palpation Location L PSIS and sacral FELICIANO Palpation Details In standing and supine: is deep and tender. PT-OP-K Range of Motion Start: 09/12/19 16:46 Freq: Status: Active Protocol: Document 10/03/19 12:48 LRN (Rec: 10/03/19 16:14 LRN [id number]) Hip Goniometric Range of Motion Hip Right Passive Testing Position Supine Straight Leg Raise 85 Internal Rotation 30 External Rotation 50 Left Passive Straight Leg Raise 80 Internal Rotation 30 External Rotation 60 PT-OP-L Special Tests Start: 09/12/19 16:46 Freq: Status: Active Protocol: Document 09/13/19 09:59 LRN (Rec: 09/13/19 11:17 LRN [id number]) Special Tests Hip Special Tests Gapping Test Test Results Neg L Lateral Compression Test Test Results Positive L Log Roll Test Test Results Neg L Stinchfield Resisted Hip Flexion Test Results Neg L MARSHALL Test Results Positive on L Comments Pain at L SIJ PT-OP-M Strength Start: 09/12/19 16:46 Freq: Status: Active Protocol: Document 09/13/19 09:59 LRN (Rec: 09/13/19 11:17 LRN [id number]) Trunk Strength Trunk Manual Muscle Testing Rotation Left 3 Fair Rotation Right 5 Normal Core Stabilization Unable to maintain neutral core with MMT of R LE, most notably weak with rotation. Hip Strength Hip Manual Muscle Testing Right Flexion (L2) 4+ Good+ Extension (S1) 4+ Good+ Abduction 5 Normal Adduction 5 Normal Left Flexion (L2) 5 Normal Extension (S1) 5 Normal Abduction 5 Normal Adduction 5 Normal PT-OP-Q Treatments Start: 09/12/19 16:46 Freq: Status: Active Protocol: Document 10/03/19 12:48 LRN (Rec: 10/03/19 13:33 LRN [id number]) Cardio Equipment Bicycle (Upright) Duration (Minutes) 5 Resistance 3 Seat Position 5 Therapeutic Exercises Supine Exercises DKTC Supine Exercise Name DKTC stretch Reps/Minutes 3' Comments Extra time for training Piriformis stretch Supine Exercise Name Piriformis stretch Side bilateral Reps/Minutes 4' Comments Extra time due to ms cramps Hands/Knees Push Supine Exercise Name Hands/Knees Push Reps/Minutes 10 hold x 10 Comments R Rotation caused lateral hip pain > to L. Stanton stretch Supine Exercise Name Hip flexor stretch Side bilateral Reps/Minutes 30 x3 Comments Cued PPT to neutral BKFO Supine Exercise Name BKFO stretch Side left Reps/Minutes 2 Knee to opposite shoulder Side bilateral Reps/Minutes 3' Manual Therapy Treatment Joint Mobilizations Sacrum Joint Correction for a R rotated sacrum Grade II Body Position Prone Comments MET Manual Traction Lumbar Details Lumbar traction Body Position Hooklying Reps/Duration 2' Taping R hip Body Location R Piriformis Treatment Focus Facilitation of R Piriformis ( PSIS>Greater Trochanter) Type of Tape K-tape Skin Inspection Good & healthy L Upper Gluteal Body Location L Piriformis Treatment Focus Relaxation of L Piriformis PSIS>Grtr Trochanter Type of Tape Kinesio Tape Skin Inspection Good & healthy PT-OP-R Modalities Start: 09/12/19 16:46 Freq: Status: Active Protocol: Document 09/30/19 12:50 LRN (Rec: 09/30/19 13:34 LRN [id number]) Ultrasound Therapy Treatment L Sacral border/GM Treatment Duration (minutes) 8 Patient Position Prone Frequency Setting (mHz) 3 Duty Cycle 50% Intensity Setting (w/cm2) 1.0 PT-OP-T Assessment and Plan Start: 09/12/19 16:46 Freq: Status: Active Protocol: Document 10/03/19 12:48 LRN (Rec: 10/03/19 13:33 LRN [id number]) Physical Therapy Assessment Goals Three Impairment Sleeping limited due to L hip pain waking. Skilled Nursing Goal (LTG) Pt will improve her ability to sleep at night with waking no more than 1x during the night . LTG Duration 11/12/19 (09/30/19: GOAL MET) Two Impairment Arthritis pain in the L hip Short Term Goal (STG) Improve bilateral hip mobility and normalize muscle tone of the L hip. STG Duration 10/15/19 Lumber Grader Goal (LTG) Eliminate L hip pain. LTG Duration 11/12/19 (09/30/19: Progressing, pain is less) One Impairment Pt lacks appropriate self care HEP Skilled Nursing Goal (LTG) Pt will be independent with a self care HEP. 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 Pt innominate position is normal. Hip mobility shows no significant change except with hip ER after stretching. Pt R hip IR mobility remains limited and ER bilaterally. Physical Therapy Plan Frequency and Duration Frequency of Treatment Every Other Week Duration of Treatment 8 weeks. Plan of Care Start Date 09/13/19 Plan of Care End Date 11/12/19 Next Visit Focus/Plan Next Note Type Treatment Note Next Visit Plan Monitor pelvic obliquity and correct if needed; try use of supine on ball at R Sacrum to correct R rotation, or use of MET; assess response to K- tape for stability/ facilitation piriformis at the L SIJ & R Piriformis for relaxation; progress pelvic and core stabilization, and ROM exercises. STM to L lateral hip and gluteals if sciatic pain continues.
--- NOTE | 2019-10-07 12:24 | PT.OTN ---
Current Diagnoses Pain in unspecified hip (10/07/19) Low back pain (10/07/19) Muscle weakness (generalized) (10/07/19) Other symptoms and signs involving the musculoskeletal system (10/07/19) Physical Therapy Treatment Note PT-OP-A Visit Information Start: 09/12/19 16:46 Freq: Status: Active Protocol: Document 10/07/19 11:13 LRN (Rec: 10/07/19 12:22 LRN [id number]) Out-Patient Physical Therapy Visit Information Visit Information Visit Type Treatment Note Visit Start Time 11:14 Visit Stop Time 12:05 Total Visit Minutes 51 Visit Number 8 Number of LOGISTICS ANALYTICS MANAGER Visits 0 Evaluation Information Evaluation Date 09/13/19 Precautions Precautions Osteopenia PT-OP-B Current Condition Start: 09/12/19 16:46 Freq: Status: Active Protocol: Document 09/13/19 09:59 LRN (Rec: 09/13/19 11:17 LRN [id number]) Current Condition History of Current Condition Onset Date 2 yrs ago in back, 1 yr ago hip pain Current Complaints L hip and back pain. History of Current Condition Intermittent L LBP. L back pain worse in prolonged sitting (>1hr) having stiffness getting out of car. Standing cooking more than 1 hours, can't finish cooking due to pain and fatigue. 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 Prior Treatments and Tests X-ray of hip: Mild L hip jt degeneration. X-ray of LB: Diffuse lumbar spondylosis and facet arthropathy, pronounced L2-L3. Treatment Goals Patient/Caregiver Goals Pt goal is to do exercise that eliminates back pain and arthritis pain in the hip. Prior Functional Status Baseline Function- ADL's Independent Baseline Function- Mobility Independent Baseline Function- Gait Normal Baseline Function- Recreation/Hobbies Exercised in the gym. Current Functional Impairments (Reported) Functional Limitations- ADL's Sleeping limited due to L hip pain waking. Functional Limitations- Mobility/Gait None Functional Limitations- Recreation/ Can't do any movements Hobbies requiring rotation of the L hip or lumbar extension due to pain. Personal Factors Other Personal Factors That May Effect Osteopenia Therapy/Recovery PT-OP-C Subjective Start: 09/12/19 16:46 Freq: Status: Active Protocol: Document 10/07/19 11:13 LRN (Rec: 10/07/19 12:22 LRN [id number]) OP-PT Subjective Patient Comments Patient Comments States the K-tape was hard to come off and made the hip muscles sore. No pain at PSIS since last flare up from sitting too long on an uncomfortable chair. PT-OP-H Neuro Start: 09/12/19 16:46 Freq: Status: Active Protocol: Document 09/13/19 09:59 LRN (Rec: 09/13/19 11:17 LRN [id number]) Sensation Evaluation Gross Sensation Gross Sensation WNL Deep Tendon Reflex & Clonus Assessment Deep Tendon Reflex Bilateral Achilles Deep Tendon Reflex 2+ Normal Bilateral Patellar Deep Tendon Reflex 3+ Normal But Brisk PT-OP-J Posture/Palpation/Skin Start: 09/12/19 16:46 Freq: Status: Active Protocol: Document 09/13/19 09:59 LRN (Rec: 09/13/19 11:17 LRN [id number]) Posture Evaluation Comments Posture Comments Standing: Slight anterior tilt of pelvis, decreased lordosis, low gluteal muscle tone, slight forward head, L calcaneal EV. Palpation Assessment Location L lower back Palpation Location L PSIS and sacral FELICIANO Palpation Details In standing and supine: is deep and tender. PT-OP-K Range of Motion Start: 09/12/19 16:46 Freq: Status: Active Protocol: Document 10/03/19 12:48 LRN (Rec: 10/03/19 16:14 LRN [id number]) Hip Goniometric Range of Motion Hip Right Passive Testing Position Supine Straight Leg Raise 85 Internal Rotation 30 External Rotation 50 Left Passive Straight Leg Raise 80 Internal Rotation 30 External Rotation 60 PT-OP-L Special Tests Start: 09/12/19 16:46 Freq: Status: Active Protocol: Document 09/13/19 09:59 LRN (Rec: 09/13/19 11:17 LRN [id number]) Special Tests Hip Special Tests Gapping Test Test Results Neg L Lateral Compression Test Test Results Positive L Log Roll Test Test Results Neg L Stinchfield Resisted Hip Flexion Test Results Neg L MARSHALL Test Results Positive on L Comments Pain at L SIJ PT-OP-M Strength Start: 09/12/19 16:46 Freq: Status: Active Protocol: Document 09/13/19 09:59 LRN (Rec: 09/13/19 11:17 LRN [id number]) Trunk Strength Trunk Manual Muscle Testing Rotation Left 3 Fair Rotation Right 5 Normal Core Stabilization Unable to maintain neutral core with MMT of R LE, most notably weak with rotation. Hip Strength Hip Manual Muscle Testing Right Flexion (L2) 4+ Good+ Extension (S1) 4+ Good+ Abduction 5 Normal Adduction 5 Normal Left Flexion (L2) 5 Normal Extension (S1) 5 Normal Abduction 5 Normal Adduction 5 Normal PT-OP-Q Treatments Start: 09/12/19 16:46 Freq: Status: Active Protocol: Document 10/07/19 11:13 LRN (Rec: 10/07/19 12:22 LRN [id number]) Cardio Equipment Bicycle (Upright) Duration (Minutes) 8 Resistance 3 Seat Position 5 Therapeutic Exercises Supine Exercises Lateral Hip Stretch Supine Exercise Name Lateral Hip stretch Side bilateral Reps/Minutes 4' DKTC Supine Exercise Name DKTC stretch Reps/Minutes 2' Piriformis stretch Supine Exercise Name Piriformis stretch Side left Reps/Minutes 4' Comments Extra time due to ms cramps Leg lift off wall Supine Exercise Name Lift leg off Chair Side bilateral Reps/Minutes 10x Comments PF >< & Breath work Hands/Knees Push Supine Exercise Name Hands/Knees Push Reps/Minutes 10 hold x 10 Deep breathing for rib mvmt Supine Exercise Name Deep Breath to get greater R rib excursion to normalize Reps/Minutes 2' Sidelying Exercises Clamshell Sidelying Exercise Name Clamshell Side right Reps/Minutes 15 x each Comments Done after STM Manual Therapy Treatment Soft Tissue Mobilization Piriformis Body Location L Piriformis Mobilization Type Strumming Intensity/Depth Moderate Body Position Prone Comments RAMIRO stretch to L OI, Piriformis & Gluteals. L upper gluteal Body Location L upper gluteal Mobilization Type Strumming,Sustained Pressure Intensity/Depth Moderate Body Position Prone Joint Mobilizations L rib Joint L ribs Direction Lateral expansion Grade I Body Position Supine Comments Pt using self cuing for improving L rib expansion. Sacrum Joint Correction for a R rotated sacrum Grade II Body Position Prone Comments MET Self-Care/Home Management Treatment Education Patient Education Home Exercise Program,Posture Activities Self-Care/Home Management Activities Pt I/S to focus on nomalizing deep breathing (improving L rib expansion and abdominal excursion), stretching L trunk and hip, and core/pelvic strengthening (leg lift off chair, R Clamshell) with proper breathing. PT-OP-R Modalities Start: 09/12/19 16:46 Freq: Status: Active Protocol: Document 09/30/19 12:50 LRN (Rec: 09/30/19 13:34 LRN [id number]) Ultrasound Therapy Treatment L Sacral border/GM Treatment Duration (minutes) 8 Patient Position Prone Frequency Setting (mHz) 3 Duty Cycle 50% Intensity Setting (w/cm2) 1.0 PT-OP-T Assessment and Plan Start: 09/12/19 16:46 Freq: Status: Active Protocol: Document 10/07/19 11:13 LRN (Rec: 10/07/19 12:22 LRN [id number]) Physical Therapy Assessment Assessment Summary Assessment Pt's skin is irritated where the K-tape was placed on the L hip; therefore hold use of K- tape. Sacrum is in R rotation but easier to correct today. L hip muscles are probably holding sacrum in R rotation although pt feels R hip muscles are tight. Pt has soft tissue tightness of L trunk probably due to an elevated L shoulder/scapula. Pt may need PT for her L shoulder to help correct postural dysfunction leading to pelvic/hip dysfunction. Physical Therapy Plan Frequency and Duration Frequency of Treatment Every Other Week Duration of Treatment 8 weeks. Plan of Care Start Date 09/13/19 Plan of Care End Date 11/12/19 Next Visit Focus/Plan Next Note Type Treatment Note Next Visit Plan Check for pelvic/sacral obliquity and correct if needed; recheck posture in supine for correction of trunk R SB; try use of supine on ball at R Sacrum to correct R rotation, or use of MET; progress pelvic and core stabilization, and ROM exercises. STM to L lateral hip and gluteals to normalize sacral position.
--- NOTE | 2019-10-11 17:27 | PT.OTN ---
Current Diagnoses Pain in unspecified hip (10/11/19) Low back pain (10/11/19) Muscle weakness (generalized) (10/11/19) Other symptoms and signs involving the musculoskeletal system (10/11/19) Physical Therapy Treatment Note PT-OP-A Visit Information Start: 09/12/19 16:46 Freq: Status: Active Protocol: Document 10/11/19 13:39 LRN (Rec: 10/11/19 14:20 LRN [id number]) Out-Patient Physical Therapy Visit Information Visit Information Visit Type Treatment Note Visit Start Time 13:39 Visit Stop Time 14:19 Visit Number 9 Number of LANDFILL ATTENDANT Visits 0 Evaluation Information Evaluation Date 09/13/19 Precautions Precautions Osteopenia PT-OP-B Current Condition Start: 09/12/19 16:46 Freq: Status: Active Protocol: Document 09/13/19 09:59 LRN (Rec: 09/13/19 11:17 LRN [id number]) Current Condition History of Current Condition Onset Date 2 yrs ago in back, 1 yr ago hip pain Current Complaints L hip and back pain. History of Current Condition Intermittent L LBP. L back pain worse in prolonged sitting (>1hr) having stiffness getting out of car. Standing cooking more than 1 hours, can't finish cooking due to pain and fatigue. 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 Prior Treatments and Tests X-ray of hip: Mild L hip jt degeneration. X-ray of LB: Diffuse lumbar spondylosis and facet arthropathy, pronounced L2-L3. Treatment Goals Patient/Caregiver Goals Pt goal is to do exercise that eliminates back pain and arthritis pain in the hip. Prior Functional Status Baseline Function- ADL's Independent Baseline Function- Mobility Independent Baseline Function- Gait Normal Baseline Function- Recreation/Hobbies Exercised in the gym. Current Functional Impairments (Reported) Functional Limitations- ADL's Sleeping limited due to L hip pain waking. Functional Limitations- Mobility/Gait None Functional Limitations- Recreation/ Can't do any movements Hobbies requiring rotation of the L hip or lumbar extension due to pain. Personal Factors Other Personal Factors That May Effect Osteopenia Therapy/Recovery PT-OP-C Subjective Start: 09/12/19 16:46 Freq: Status: Active Protocol: Document 10/11/19 13:39 LRN (Rec: 10/11/19 14:20 LRN [id number]) OP-PT Subjective Patient Comments Patient Comments States she sat on a funny chair 3 days ago and had L hip and LBP for 2 days. Did ex's and today no pain. PT-OP-H Neuro Start: 09/12/19 16:46 Freq: Status: Active Protocol: Document 09/13/19 09:59 LRN (Rec: 09/13/19 11:17 LRN [id number]) Sensation Evaluation Gross Sensation Gross Sensation WNL Deep Tendon Reflex & Clonus Assessment Deep Tendon Reflex Bilateral Achilles Deep Tendon Reflex 2+ Normal Bilateral Patellar Deep Tendon Reflex 3+ Normal But Brisk PT-OP-J Posture/Palpation/Skin Start: 09/12/19 16:46 Freq: Status: Active Protocol: Document 09/13/19 09:59 LRN (Rec: 09/13/19 11:17 LRN [id number]) Posture Evaluation Comments Posture Comments Standing: Slight anterior tilt of pelvis, decreased lordosis, low gluteal muscle tone, slight forward head, L calcaneal EV. Palpation Assessment Location L lower back Palpation Location L PSIS and sacral FELICIANO Palpation Details In standing and supine: is deep and tender. PT-OP-K Range of Motion Start: 09/12/19 16:46 Freq: Status: Active Protocol: Document 10/03/19 12:48 LRN (Rec: 10/03/19 16:14 LRN [id number]) Hip Goniometric Range of Motion Hip Right Passive Testing Position Supine Straight Leg Raise 85 Internal Rotation 30 External Rotation 50 Left Passive Straight Leg Raise 80 Internal Rotation 30 External Rotation 60 PT-OP-L Special Tests Start: 09/12/19 16:46 Freq: Status: Active Protocol: Document 09/13/19 09:59 LRN (Rec: 09/13/19 11:17 LRN [id number]) Special Tests Hip Special Tests Gapping Test Test Results Neg L Lateral Compression Test Test Results Positive L Log Roll Test Test Results Neg L Stinchfield Resisted Hip Flexion Test Results Neg L MARSHALL Test Results Positive on L Comments Pain at L SIJ PT-OP-M Strength Start: 09/12/19 16:46 Freq: Status: Active Protocol: Document 09/13/19 09:59 LRN (Rec: 09/13/19 11:17 LRN [id number]) Trunk Strength Trunk Manual Muscle Testing Rotation Left 3 Fair Rotation Right 5 Normal Core Stabilization Unable to maintain neutral core with MMT of R LE, most notably weak with rotation. Hip Strength Hip Manual Muscle Testing Right Flexion (L2) 4+ Good+ Extension (S1) 4+ Good+ Abduction 5 Normal Adduction 5 Normal Left Flexion (L2) 5 Normal Extension (S1) 5 Normal Abduction 5 Normal Adduction 5 Normal PT-OP-Q Treatments Start: 09/12/19 16:46 Freq: Status: Active Protocol: Document 10/11/19 13:39 LRN (Rec: 10/11/19 14:20 LRN [id number]) Cardio Equipment Bicycle (Upright) Duration (Minutes) 8 Resistance 4 Seat Position 5 Therapeutic Exercises Supine Exercises Spencer hip flex w/feet on ball Supine Exercise Name Core stabilization Reps/Minutes 15x DKTC Supine Exercise Name DKTC stretch Reps/Minutes 2' Leg lift off wall Supine Exercise Name Lift leg off TBall Side bilateral Reps/Minutes 10x Comments PF >< & Breath work Deep breathing for rib mvmt Supine Exercise Name Deep Breath to get greater R rib excursion to normalize Reps/Minutes 2' Comments Minimal restriction on R side Sidelying Exercises Clamshell Sidelying Exercise Name Clamshell Side right Reps/Minutes 15 x each Comments Done after STM Sitting Exercises Hands/Knees Push Sitting Exercise Name Hands/Knees push Reps/Minutes 10x, hold 10 sec Comments Proper posture and breathing to start Manual Therapy Treatment Soft Tissue Mobilization QL Body Location Spencer QL Piriformis Body Location L Piriformis at hip and sacral border Mobilization Type Strumming,Sustained Pressure, Trigger Point Release Body Position Prone L upper gluteal Body Location L upper Gluteal with stab pressure on R Sacral border Mobilization Type Strumming,Sustained Pressure Intensity/Depth Moderate Body Position Prone Self-Care/Home Management Treatment Education Patient Education Pain Management Other Education Discussed methods for pt to avoid pain with sitting on poor structured chairs. PT-OP-R Modalities Start: 09/12/19 16:46 Freq: Status: Active Protocol: Document 09/30/19 12:50 LRN (Rec: 09/30/19 13:34 LRN [id number]) Ultrasound Therapy Treatment L Sacral border/GM Treatment Duration (minutes) 8 Patient Position Prone Frequency Setting (mHz) 3 Duty Cycle 50% Intensity Setting (w/cm2) 1.0 PT-OP-T Assessment and Plan Start: 10/17/19 16:46 Freq: Status: Active Protocol: Document 10/11/19 13:39 LRN (Rec: 10/11/19 14:20 LRN [id number]) Physical Therapy Assessment Assessment Summary Assessment Pt Sacrum was in slight R rotation, able to correct with STM. Pt had normal sit posture after sitting hands/ knees push ex. Post therapy no curvature noted of the spine. Further core stab needed. Physical Therapy Plan Frequency and Duration Frequency of Treatment Every Other Week Duration of Treatment 8 weeks. Plan of Care Start Date 09/13/19 Plan of Care End Date 11/12/19 Next Visit Focus/Plan Next Note Type Treatment Note Next Visit Plan Review sit and supine hands/ knees push. Check for pelvic/ sacral obliquity and correct if needed; recheck posture in supine for correction of trunk R SB; to correct R rotation of sacrum use STM or MET; progress pelvic and core stabilization, and ROM exercises. If needed, STM to L lateral hip and gluteals to normalize sacral position.
--- NOTE | 2019-10-14 16:11 | PT.OTN ---
Current Diagnoses Pain in unspecified hip (10/14/19) Low back pain (10/14/19) Muscle weakness (generalized) (10/14/19) Other symptoms and signs involving the musculoskeletal system (10/14/19) Physical Therapy Treatment Note PT-OP-A Visit Information Start: 09/12/19 16:46 Freq: Status: Active Protocol: Document 10/14/19 12:47 LRN (Rec: 10/14/19 13:34 LRN [id number]) Out-Patient Physical Therapy Visit Information Visit Information Visit Type Progress Note Visit Start Time 12:47 Visit Stop Time 13:32 Total Visit Minutes 45 Visit Number 10 Number of COMMERCIAL GREEN BUILDING ARCHITECT Visits 0 Evaluation Information Evaluation Date 09/13/19 Precautions Precautions Osteopenia PT-OP-B Current Condition Start: 09/12/19 16:46 Freq: Status: Active Protocol: Document 09/13/19 09:59 LRN (Rec: 09/13/19 11:17 LRN [id number]) Current Condition History of Current Condition Onset Date 2 yrs ago in back, 1 yr ago hip pain Current Complaints L hip and back pain. History of Current Condition Intermittent L LBP. L back pain worse in prolonged sitting (>1hr) having stiffness getting out of car. Standing cooking more than 1 hours, can't finish cooking due to pain and fatigue. 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 Prior Treatments and Tests X-ray of hip: Mild L hip jt degeneration. X-ray of LB: Diffuse lumbar spondylosis and facet arthropathy, pronounced L2-L3. Treatment Goals Patient/Caregiver Goals Pt goal is to do exercise that eliminates back pain and arthritis pain in the hip. Prior Functional Status Baseline Function- ADL's Independent Baseline Function- Mobility Independent Baseline Function- Gait Normal Baseline Function- Recreation/Hobbies Exercised in the gym. Current Functional Impairments (Reported) Functional Limitations- ADL's Sleeping limited due to L hip pain waking. Functional Limitations- Mobility/Gait None Functional Limitations- Recreation/ Can't do any movements Hobbies requiring rotation of the L hip or lumbar extension due to pain. Personal Factors Other Personal Factors That May Effect Osteopenia Therapy/Recovery PT-OP-C Subjective Start: 09/12/19 16:46 Freq: Status: Active Protocol: Document 10/14/19 12:47 LRN (Rec: 10/14/19 13:34 LRN [id number]) OP-PT Subjective Patient Comments Patient Comments No onset back pain. L hip pain when waking at night on R side. States she sleeps on her back with pillow under her knees or on her side with pillow between knees. PT-OP-H Neuro Start: 09/12/19 16:46 Freq: Status: Active Protocol: Document 09/13/19 09:59 LRN (Rec: 09/13/19 11:17 LRN [id number]) Sensation Evaluation Gross Sensation Gross Sensation WNL Deep Tendon Reflex & Clonus Assessment Deep Tendon Reflex Bilateral Achilles Deep Tendon Reflex 2+ Normal Bilateral Patellar Deep Tendon Reflex 3+ Normal But Brisk PT-OP-J Posture/Palpation/Skin Start: 09/12/19 16:46 Freq: Status: Active Protocol: Document 09/13/19 09:59 LRN (Rec: 09/13/19 11:17 LRN [id number]) Posture Evaluation Comments Posture Comments Standing: Slight anterior tilt of pelvis, decreased lordosis, low gluteal muscle tone, slight forward head, L calcaneal EV. Palpation Assessment Location L lower back Palpation Location L PSIS and sacral FELICIANO Palpation Details In standing and supine: is deep and tender. PT-OP-K Range of Motion Start: 09/12/19 16:46 Freq: Status: Active Protocol: Document 10/03/19 12:48 LRN (Rec: 10/03/19 16:14 LRN [id number]) Hip Goniometric Range of Motion Hip Right Passive Testing Position Supine Straight Leg Raise 85 Internal Rotation 30 External Rotation 50 Left Passive Straight Leg Raise 80 Internal Rotation 30 External Rotation 60 PT-OP-L Special Tests Start: 09/12/19 16:46 Freq: Status: Active Protocol: Document 09/13/19 09:59 LRN (Rec: 09/13/19 11:17 LRN [id number]) Special Tests Hip Special Tests Gapping Test Test Results Neg L Lateral Compression Test Test Results Positive L Log Roll Test Test Results Neg L Stinchfield Resisted Hip Flexion Test Results Neg L MARSHALL Test Results Positive on L Comments Pain at L SIJ PT-OP-M Strength Start: 09/12/19 16:46 Freq: Status: Active Protocol: Document 09/13/19 09:59 LRN (Rec: 09/13/19 11:17 LRN [id number]) Trunk Strength Trunk Manual Muscle Testing Rotation Left 3 Fair Rotation Right 5 Normal Core Stabilization Unable to maintain neutral core with MMT of R LE, most notably weak with rotation. Hip Strength Hip Manual Muscle Testing Right Flexion (L2) 4+ Good+ Extension (S1) 4+ Good+ Abduction 5 Normal Adduction 5 Normal Left Flexion (L2) 5 Normal Extension (S1) 5 Normal Abduction 5 Normal Adduction 5 Normal PT-OP-Q Treatments Start: 09/12/19 16:46 Freq: Status: Active Protocol: Document 10/14/19 12:47 LRN (Rec: 10/14/19 13:34 LRN [id number]) Cardio Equipment Bicycle (Upright) Duration (Minutes) 8 Resistance 4 Seat Position 5 Therapeutic Exercises Supine Exercises Fig 4 stretch Supine Exercise Name Fig 4 stretch Side bilateral Lateral Hip Stretch Supine Exercise Name Lateral Hip stretch Side bilateral Reps/Minutes 4' DKTC Supine Exercise Name DKTC stretch Reps/Minutes 2' Piriformis stretch Supine Exercise Name Piriformis stretch Side left Reps/Minutes 4' Comments Extra time due to ms cramps Sidelying Exercises Pelvic protraction Sidelying Exercise Name Pelvic protraction Side left Reps/Minutes 5x Clamshell Sidelying Exercise Name Clamshell Side bilateral Reps/Minutes 15 x 2 Comments Done after STM Manual Therapy Treatment Soft Tissue Mobilization QL Body Location R QL Mobilization Type Strumming Piriformis Body Location L Piriformis at hip and sacral border Mobilization Type Strumming,Sustained Pressure, Trigger Point Release Body Position Prone L upper gluteal Body Location L upper Gluteal with stab pressure on R Sacral border Mobilization Type Strumming,Sustained Pressure Intensity/Depth Moderate Body Position Prone Joint Mobilizations Sacrum Joint Correction for a R rotated sacrum Grade II Body Position Prone Comments MET Self-Care/Home Management Treatment Education Patient Education Home Exercise Program Activities Self-Care/Home Management Activities I/S pt in Gluteus Austin and Glut Medius Squat walk with T- Band for HEP PT-OP-R Modalities Start: 09/12/19 16:46 Freq: Status: Active Protocol: Document 09/30/19 12:50 LRN (Rec: 09/30/19 13:34 LRN [id number]) Ultrasound Therapy Treatment L Sacral border/GM Treatment Duration (minutes) 8 Patient Position Prone Frequency Setting (mHz) 3 Duty Cycle 50% Intensity Setting (w/cm2) 1.0 PT-OP-T Assessment and Plan Start: 09/12/19 16:46 Freq: Status: Active Protocol: Document 10/14/19 12:47 LRN (Rec: 10/14/19 13:34 LRN [id number]) Physical Therapy Assessment Impairments Impairments Activity Tolerance,Pain,ROM, Strength Goals Three Impairment Sleeping limited due to L hip pain waking. Alf Goal (LTG) Pt will improve her ability to sleep at night with waking no more than 1x during the night . LTG Duration 11/12/19 (09/30/19: GOAL MET) Two Impairment Arthritis pain in the L hip Short Term Goal (STG) Improve bilateral hip mobility and normalize muscle tone of the L hip. STG Duration 10/15/19 (10/14/19: Progressing, mild tone on L) Refrigerating Machine Operator Goal (LTG) Eliminate L hip pain. LTG Duration 11/12/19 (09/30/19: Progressing, pain is less) One Impairment Pt lacks appropriate self care HEP Alf Goal (LTG) Pt will be independent with a self care HEP. LTG Duration 11/12/19 (09/30/19: Progressing) Progress Towards Goals Progress Towards Goals Progressing Toward Goals Assessment Summary Assessment The pt's pelvis is mildly unstable causing L SIJ pain at nighttime with R sidelie. She is having L hip pain primarily at night, possibly due to positioning of her L leg over the right when in R sidelie causing strain in her L SIJ. She only has occasional back pain, so her primary area of concern is on minimizing and eliminating her L SIJ pain. Her sacrum is in slight R rotation and her R QL is tight, otherwise she appears to be stabilized in neutral. The pt would benefit from further stabilization to minimize her pain and return her to her prior level of function. Physical Therapy Plan Frequency and Duration Frequency of Treatment Every Other Week Duration of Treatment 8 weeks Plan of Care Start Date 09/13/19 Plan of Care End Date 11/12/19 Therapeutic Interventions Therapeutic Interventions Home Exercise Program,Joint Mobilizations,Manual Therapy, Neuromuscular Re-education, Patient/Caregiver Education, Self-Care/Home Management,Soft Tissue Mobilization,Taping, Therapeutic Activities, Therapeutic Exercises Modalities Cold Pack/Ice Massage,Electric Stimulation,Hot Packs, Ultrasound Next Visit Focus/Plan Next Note Type Treatment Note Next Visit Plan Pt is going to be gone for 2 weeks on vacation. On return, check for pelvic/sacral obliquity and correct if needed, check L Hip ROM and strength & for check for pain resolution in L hip. Review hip strengthening of squat walk with T-Band around knees and around forefeet.; recheck posture in supine for correction of trunk R SB; correct R rotation of sacrum if needed; progress pelvic and core stabilization, and ROM exercises. If needed, STM to L lateral hip and gluteals to normalize sacral position.
--- NOTE | 2019-11-21 13:49 | PT.OPPOC ---
Current Diagnoses Pain in unspecified hip (11/21/19) Low back pain (11/21/19) Muscle weakness (generalized) (11/21/19) Other symptoms and signs involving the musculoskeletal system (11/21/19) Visit Care Team Role Provider Type Aamnda Gong DO Attending Provider Physician Primary Care Provider Specialty: Family Practice Address: [address] [place] [address], [facility] Email: [email or web address] Plan Of Care PT-OP-T Assessment and Plan Start: 09/12/19 16:46 Freq: Status: Active Protocol: Document 11/21/19 08:17 LRN (Rec: 11/21/19 09:04 LRN [id number]) Physical Therapy Assessment Rehab Potential Rehabilitation Potential Excellent Evaluation Complexity Number of Personal Factors/Comorbidities 1-2 Number of Body Systems Impaired 1-2 Clinical Presentation at Evaluation Stable Impairments Impairments Functional Activities Goals Three Impairment Sleeping limited due to L hip pain waking. Cq Developer Goal (LTG) Pt will improve her ability to sleep at night with waking no more than 1x during the night . LTG Duration 11/12/19 (09/30/19: GOAL MET) Two Impairment Arthritis pain in the L hip Short Term Goal (STG) Improve bilateral hip mobility and normalize muscle tone of the L hip. STG Duration 11/21/19 (11/21/19: GOAL MET) Cq Developer Goal (LTG) Eliminate L hip pain. LTG Duration 11/21/19 (11/21/19: GOAL MET) One Impairment Pt lacks appropriate self care HEP [facility] Goal (LTG) Pt will be independent with a self care HEP. LTG Duration 11/21/19 (11/21/19: GOAL MET) Assessment Summary Assessment Pt met all goals and has returned to her baseline of exercising without pain. Physical Therapy Plan Frequency and Duration Frequency of Treatment One visit. Plan of Care Start Date 11/12/19 Plan of Care End Date 11/21/19 Therapeutic Interventions Therapeutic Interventions Home Exercise Program,Self- Care/Home Management, Therapeutic Exercises Discharge Physical Therapy Discharge Reasons Goals Met Discharge Comments Pt was seen today for reassessment and was found to have met her sleeping and pain goal. She needed today's skilled physical therapy visit for a review and education in a self care program in order to discharge her to an independent HEP. No further therapy is planned after today . Plan of Care Dates Plan of Care Start Date 11/12/19 Plan of Care End Date 11/21/19
--- NOTE | 2019-11-21 13:49 | PT.OTN ---
Current Diagnoses Pain in unspecified hip (11/21/19) Low back pain (11/21/19) Muscle weakness (generalized) (11/21/19) Other symptoms and signs involving the musculoskeletal system (11/21/19) Physical Therapy Treatment Note PT-OP-A Visit Information Start: 09/12/19 16:46 Freq: Status: Active Protocol: Document 11/21/19 08:17 LRN (Rec: 11/21/19 09:04 LRN [id number]) Out-Patient Physical Therapy Visit Information Visit Information Visit Type Progress Note Visit Start Time 08:17 Visit Stop Time 09:01 Total Visit Minutes 46 Visit Number 11 Number of VICE PRESIDENT OF SOFTWARE ENGINEERING Visits 0 Evaluation Information Evaluation Date 09/13/19 Precautions Precautions Osteopenia PT-OP-B Current Condition Start: 09/12/19 16:46 Freq: Status: Active Protocol: Document 09/13/19 09:59 LRN (Rec: 09/13/19 11:17 LRN [id number]) Current Condition History of Current Condition Onset Date 2 yrs ago in back, 1 yr ago hip pain Current Complaints L hip and back pain. History of Current Condition Intermittent L LBP. L back pain worse in prolonged sitting (>1hr) having stiffness getting out of car. Standing cooking more than 1 hours, can't finish cooking due to pain and fatigue. 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 Prior Treatments and Tests X-ray of hip: Mild L hip jt degeneration. X-ray of LB: Diffuse lumbar spondylosis and facet arthropathy, pronounced L2-L3. Treatment Goals Patient/Caregiver Goals Pt goal is to do exercise that eliminates back pain and arthritis pain in the hip. Prior Functional Status Baseline Function- ADL's Independent Baseline Function- Mobility Independent Baseline Function- Gait Normal Baseline Function- Recreation/Hobbies Exercised in the gym. Current Functional Impairments (Reported) Functional Limitations- ADL's Sleeping limited due to L hip pain waking. Functional Limitations- Mobility/Gait None Functional Limitations- Recreation/ Can't do any movements Hobbies requiring rotation of the L hip or lumbar extension due to pain. Personal Factors Other Personal Factors That May Effect Osteopenia Therapy/Recovery PT-OP-C Subjective Start: 09/12/19 16:46 Freq: Status: Active Protocol: Document 11/21/19 08:17 LRN (Rec: 11/21/19 09:04 LRN [id number]) OP-PT Subjective Patient Comments Patient Comments States she has not had pain but is doing her exercises. Would like to know what more she should be doing. Last visit. PT-OP-H Neuro Start: 09/12/19 16:46 Freq: Status: Active Protocol: Document 09/13/19 09:59 LRN (Rec: 09/13/19 11:17 LRN [id number]) Sensation Evaluation Gross Sensation Gross Sensation WNL Deep Tendon Reflex & Clonus Assessment Deep Tendon Reflex Bilateral Achilles Deep Tendon Reflex 2+ Normal Bilateral Patellar Deep Tendon Reflex 3+ Normal But Brisk PT-OP-J Posture/Palpation/Skin Start: 09/12/19 16:46 Freq: Status: Active Protocol: Document 09/13/19 09:59 LRN (Rec: 09/13/19 11:17 LRN [id number]) Posture Evaluation Comments Posture Comments Standing: Slight anterior tilt of pelvis, decreased lordosis, low gluteal muscle tone, slight forward head, L calcaneal EV. Palpation Assessment Location L lower back Palpation Location L PSIS and sacral FELICIANO Palpation Details In standing and supine: is deep and tender. PT-OP-K Range of Motion Start: 09/12/19 16:46 Freq: Status: Active Protocol: Document 11/21/19 08:17 LRN (Rec: 11/21/19 09:04 LRN [id number]) Hip Goniometric Range of Motion Hip Right Passive Testing Position Supine Straight Leg Raise 85 Internal Rotation 35 External Rotation 40 Left Passive Testing Position Supine Straight Leg Raise 85 Internal Rotation 35 External Rotation 45 PT-OP-L Special Tests Start: 09/12/19 16:46 Freq: Status: Active Protocol: Document 09/13/19 09:59 LRN (Rec: 09/13/19 11:17 LRN [id number]) Special Tests Hip Special Tests Gapping Test Test Results Neg L Lateral Compression Test Test Results Positive L Log Roll Test Test Results Neg L Stinchfield Resisted Hip Flexion Test Results Neg L MARSHALL Test Results Positive on L Comments Pain at L SIJ PT-OP-M Strength Start: 09/12/19 16:46 Freq: Status: Active Protocol: Document 09/13/19 09:59 LRN (Rec: 09/13/19 11:17 LRN [id number]) Trunk Strength Trunk Manual Muscle Testing Rotation Left 3 Fair Rotation Right 5 Normal Core Stabilization Unable to maintain neutral core with MMT of R LE, most notably weak with rotation. Hip Strength Hip Manual Muscle Testing Right Flexion (L2) 4+ Good+ Extension (S1) 4+ Good+ Abduction 5 Normal Adduction 5 Normal Left Flexion (L2) 5 Normal Extension (S1) 5 Normal Abduction 5 Normal Adduction 5 Normal PT-OP-Q Treatments Start: 09/12/19 16:46 Freq: Status: Active Protocol: Document 11/21/19 08:17 LRN (Rec: 11/21/19 09:04 LRN [id number]) Therapeutic Exercises Supine Exercises Bilateral March Supine Exercise Name Bilateral leg March (bilateral leg lift) Side bilateral Reps/Minutes 10x Comments Extra time taken with training Vasyl Heel Slides Supine Exercise Name Vasyl Heel Slides Side bilateral Reps/Minutes 15x Trunk rot/Lateral hip stretch Supine Exercise Name Trunk Rot/Lateral hip stretch Side bilateral Reps/Minutes 4' Fig 4 stretch Supine Exercise Name Vasyl BKFO Reps/Minutes 2' DKTC Supine Exercise Name DKTC stretch Reps/Minutes 2' Piriformis stretch Supine Exercise Name Piriformis stretch Side bilateral Reps/Minutes 5' Comments Extra time due to ms cramps Hands/Knees Push Supine Exercise Name Hands/Knees Push Reps/Minutes 10x 6sec holds Prone Exercises Vasyl leg lifts Prone Exercise Name Vasyl leg lifts Reps/Minutes 2' Standing Exercises Wall slides Standing Exercise Name Wall slides Reps/Minutes 3' Self-Care/Home Management Treatment Education Patient Education Home Exercise Program Activities Self-Care/Home Management Activities Rreviewed throughly HEP. Issued & reviewed for HEP: Vasyl hands/knees push, Core stab progressions ( TA>TA w/PF > TA w/multifidus, vasyl heel slides, Vasyl march ups, IAN. PT-OP-R Modalities Start: 09/12/19 16:46 Freq: Status: Active Protocol: Document 09/30/19 12:50 LRN (Rec: 09/30/19 13:34 LRN [id number]) Ultrasound Therapy Treatment L Sacral border/GM Treatment Duration (minutes) 8 Patient Position Prone Frequency Setting (mHz) 3 Duty Cycle 50% Intensity Setting (w/cm2) 1.0 PT-OP-T Assessment and Plan Start: 09/12/19 16:46 Freq: Status: Active Protocol: Document 11/21/19 08:17 LRN (Rec: 11/21/19 09:04 LRN [id number]) Physical Therapy Assessment Rehab Potential Rehabilitation Potential Excellent Evaluation Complexity Number of Personal Factors/Comorbidities 1-2 Number of Body Systems Impaired 1-2 Clinical Presentation at Evaluation Stable Impairments Impairments Functional Activities Goals Three Impairment Sleeping limited due to L hip pain waking. Road Mender Goal (LTG) Pt will improve her ability to sleep at night with waking no more than 1x during the night . LTG Duration 11/12/19 (09/30/19: GOAL MET) Two Impairment Arthritis pain in the L hip Short Term Goal (STG) Improve bilateral hip mobility and normalize muscle tone of the L hip. STG Duration 11/21/19 (11/21/19: GOAL MET) Road Mender Goal (LTG) Eliminate L hip pain. LTG Duration 11/21/19 (11/21/19: GOAL MET) One Impairment Pt lacks appropriate self care HEP Road Mender Goal (LTG) Pt will be independent with a self care HEP. LTG Duration 11/21/19 (11/21/19: GOAL MET) Assessment Summary Assessment Pt met all goals and has returned to her baseline of exercising without pain. Physical Therapy Plan Frequency and Duration Frequency of Treatment One visit. Plan of Care Start Date 11/12/19 Plan of Care End Date 11/21/19 Therapeutic Interventions Therapeutic Interventions Home Exercise Program,Self- Care/Home Management, Therapeutic Exercises Discharge Physical Therapy Discharge Reasons Goals Met Discharge Comments Pt was seen today for reassessment and was found to have met her sleeping and pain goal. She needed today's skilled physical therapy visit for a review and education in a self care program in order to discharge her to an independent HEP. No further therapy is planned after today .
--- NOTE | 2019-11-21 13:50 | PT.OPPOC ---
Current Diagnoses Pain in unspecified hip (11/21/19) Low back pain (11/21/19) Muscle weakness (generalized) (11/21/19) Other symptoms and signs involving the musculoskeletal system (11/21/19) Visit Care Team Role Provider Type Amanda Gong DO Attending Provider Physician Primary Care Provider Specialty: Family Practice Address: [address] [place] [address], [facility] Email: [email or web address] Plan Of Care PT-OP-T Assessment and Plan Start: 09/12/19 16:46 Freq: Status: Active Protocol: Document 11/21/19 08:17 LRN (Rec: 11/21/19 09:04 LRN [id number]) Physical Therapy Assessment Rehab Potential Rehabilitation Potential Excellent Evaluation Complexity Number of Personal Factors/Comorbidities 1-2 Number of Body Systems Impaired 1-2 Clinical Presentation at Evaluation Stable Impairments Impairments Functional Activities Goals Three Impairment Sleeping limited due to L hip pain waking. Civil Engineer Goal (LTG) Pt will improve her ability to sleep at night with waking no more than 1x during the night . LTG Duration 11/12/19 (09/30/19: GOAL MET) Two Impairment Arthritis pain in the L hip Short Term Goal (STG) Improve bilateral hip mobility and normalize muscle tone of the L hip. STG Duration 11/21/19 (11/21/19: GOAL MET) Civil Engineer Goal (LTG) Eliminate L hip pain. LTG Duration 11/21/19 (11/21/19: GOAL MET) One Impairment Pt lacks appropriate self care HEP Jail Goal (LTG) Pt will be independent with a self care HEP. LTG Duration 11/21/19 (11/21/19: GOAL MET) Assessment Summary Assessment Pt met all goals and has returned to her baseline of exercising without pain. Physical Therapy Plan Frequency and Duration Frequency of Treatment One visit. Plan of Care Start Date 11/12/19 Plan of Care End Date 11/21/19 Therapeutic Interventions Therapeutic Interventions Home Exercise Program,Self- Care/Home Management, Therapeutic Exercises Discharge Physical Therapy Discharge Reasons Goals Met Discharge Comments Pt was seen today for reassessment and was found to have met her sleeping and pain goal. She needed today's skilled physical therapy visit for a review and education in a self care program in order to discharge her to an independent HEP. No further therapy is planned after today . Plan of Care Dates Plan of Care Start Date 11/12/19 Plan of Care End Date 11/21/19
== END 2019-11-21 09:15 ==
LOC: PHYS 08:15
PROVIDERS: PCP Family Medicine; Visit Provider Family Medicine
DX: M54.5 Low back pain (principal); M25.559 Pain in unspecified hip; M62.81 Muscle weakness (generalized); R29.898 Other symptoms and signs involving the musculoskeletal system
CPT/HCPCS: 97035; 97110; 97140; 97161; 97535

== ENCOUNTER → 2020-09-11 09:31 | Outpatient (CLI) | payer MEDICARE, OTHER, SELFPAY ==
--- NOTE | 2020-09-11 09:32 | DI.MG.S_ITS ---
BILATERAL DIGITAL DIAGNOSTIC MAMMOGRAM 3D/2D SHORT-TERM FOLLOW-UP: 09/11/2020 CLINICAL: Patient returns for a 12 month follow up of the left breast, due for bilateral exam. Comparison is made to exams dated: 08/15/2019 mammogram, 02/07/2019 mammogram, and 08/09/2018 mammogram - [facility]. The tissue of both breasts is heterogeneously dense. This may lower the sensitivity of mammography. There are stable benign grouped fine calcifications in the left breast at 12 o'clock posterior depth. The asymmetry in the left breast at 12 o'clock posterior depth is no longer seen. No other significant masses, calcifications, or other findings are seen in either breast. IMPRESSION: BENIGN There is no mammographic evidence of malignancy. A 1 year screening mammogram is recommended. This exam was interpreted at Station ID: [id number]. NOTE: For mammograms, a report in lay terms will be sent to the patient. Approximately 15% of breast malignancies will not be visualized mammographically. In the management of a palpable breast mass, a negative mammogram must not discourage biopsy of a clinically suspicious lesion. Electronically Signed By: Radha Thomas M.D. lk/:09/11/2020 10:10:46 copy to: JAMES CANSECO letter sent: Normal Exam ACR BI-RADS Category 2: Benign Finding(s) 3342F
== END ==
PROVIDERS: PCP Nurse Practitioner; Referring Provider Nurse Practitioner; Visit Provider Nurse Practitioner
DX: R92.8 Other abnormal and inconclusive findings on diagnostic imaging of breast (principal); R92.1 Mammographic calcification found on diagnostic imaging of breast; Z13.820 Encounter for screening for osteoporosis; M85.852 Other specified disorders of bone density and structure, left thigh; Z78.0 Asymptomatic menopausal state; Z82.62 Family history of osteoporosis; Z79.899 Other long term (current) drug therapy
CPT/HCPCS: 77066; 77080; G0279

== ENCOUNTER 2020-12-21 14:15 | Outpatient (RCR) | payer MEDICARE, OTHER, SELFPAY ==
--- NOTE | 2020-10-26 17:00 | PT.OIE ---
Current Diagnoses Stiffness of unspecified hip, not elsewhere classified (10/26/20) Pelvic muscle wasting (10/26/20) Postmenopausal atrophic vaginitis (10/26/20) Past Medical History (Last Updated 09/17/20 @ 10:25 by MACARIO Rossi) Allergic rhinitis (1979) Cataracts, bilateral (~01/2018) Change in bowel habits Chickenpox (1954) Fractures (2015) Infertility (1981) Kidney disease (1960) Measles (1954) Mumps (1955) Osteopenia (2005) Rosacea (1990) Vaginal atrophy Past Surgical History (Last Reviewed 05/22/18 @ 12:38 by Amanda Gong DO) Hx of urethrotomy (10/1970) Visit Care Team Role Provider Type MACARIO Rossi Attending Provider Advanced Quality Systems Engineer Family Provider Primary Care Provider Referring Provider Specialty: Family Practice Address: [address] [place] [address], [facility] Email: [email or web address] Physical Therapy Initial Evaluation PT-OP-A Visit Information Start: 10/25/20 18:23 Freq: Status: Active Protocol: Document 10/26/20 13:34 LRN (Rec: 10/26/20 14:31 LRN [id number]) Out-Patient Physical Therapy Visit Information Visit Information Visit Type Initial Evaluation Visit Start Time 13:34 Visit Stop Time 14:31 Total Visit Minutes 57 Visit Number 1 Evaluation Information Evaluation Date 10/26/20 Precautions Precautions Osteopenia Arthritis PT-OP-B Current Condition Start: 10/25/20 18:23 Freq: Status: Active Protocol: Document 10/26/20 13:34 LRN (Rec: 10/26/20 14:31 LRN [id number]) Current Condition History of Current Condition Onset Date 6-7 yrs ago. Current Complaints Bulge in perineum & loss of sleep-wakes 2x @ night. History of Current Condition States she has known she has had an issue for 6-7 yrs, during her wellness exam she was given a choice to try PT before surgery or a pessary. States she has done a pessary and found it painful; therefore wasn't certain if she wanted to try a pessary again and decided to try PT rather than surgery during the Pandemic time. Now feels a weight as a bulge in perineum. Does exercises at home (ex videos hasfit). Prior Treatments and Tests 2 yrs ago: Pessary for <24 hrs, was found to be too painful. Treatment Goals Patient/Caregiver Goals Pt goal is to prevent having to have surgery or to learn if she needs to have surgery before 81 yrs old. Prior Functional Status Baseline Function- ADL's Independent Baseline Function- Mobility Independent Baseline Function- Recreation/Hobbies Exercised in gym. Bladder pain with exercise when sitting on hard floor (pain in perineum). Baseline Function- Other Walked 6 days per week, video ex 5x/week Current Functional Impairments (Reported) Functional Limitations- ADL's Hinders her ability to travel, pt must know where bathrooms are located. Functional Limitations- Recreation/ Less pain sitting ground (now Hobbies sits on carpet and mat) Functional Limitations- Other Bending over reaching for ground, sometimes pain in perineum. Personal Factors Other Personal Factors That May Effect Osteopenia Therapy/Recovery PT-OP-C Subjective Start: 10/25/20 18:23 Freq: Status: Active Protocol: Document 10/26/20 13:34 LRN (Rec: 10/26/20 14:31 LRN [id number]) Patient Questionnaires Pelvic Pain and Urgency/Frequency Patient Symptom Scale Pelvic Pain Score 13 OP-PT Pain Assessment Pain Assessment Grid Paper Pain Assessment Grid Completed Yes Location Perineum Pain Location Details Perineum-Urethra area Intensity 1 Scale Used Numeric (0 - 10) Description Burning PT-OP-I Pelvic Floor Start: 10/25/20 18:23 Freq: Status: Active Protocol: Document 10/26/20 13:34 LRN (Rec: 10/26/20 18:35 LRN [id number]) Pelvic Floor Assessment Urine Pelvic Floor Surgery No Urinary Symptoms Prolapse,Falling Out Feeling/ Heavy,Pain Other Urinary Symptoms No urinary leakage Voiding Frequency 6-8 times a day Nocturia 2x Prolapse Cystocele Grade 4 Prolapse Comments Once bladder pushed back into vaginal canal, pt was able to pull the bladder up and in. Perineal Descent Resting Present Bearing Present Contraction Ability Voluntary Contraction Weak Manual Muscle Testing Left 0 Manual Muscle Testing Right 1 Manual Muscle Testing Anterior 1 Manual Muscle Testing Posterior 2 Muscle Endurance (Seconds) 3 Comments Pelvic Floor Comments Tissues dry, Redness at vaginal opening from 4-8 of the PF Clock without pain. PT-OP-J Posture/Palpation/Skin Start: 10/25/20 18:23 Freq: Status: Active Protocol: Document 10/26/20 13:34 LRN (Rec: 10/26/20 14:31 LRN [id number]) Posture Evaluation Comments Posture Comments Standing: Slight anterior tilt of pelvis, low gluteal muscle tone on right, slight forward head, L calcaneal EV. Palpation Assessment Location L lower back Palpation Location Lumbar paraspinals Palpation Findings Soft Tissue Tightness PT-OP-K Range of Motion Start: 10/25/20 18:23 Freq: Status: Active Protocol: Document 10/26/20 13:34 LRN (Rec: 10/26/20 14:31 LRN [id number]) Lumbar Spine Range of Motion Lumbar Spine Active Degrees Testing Position Standing Flexion 70 Extension 25 Lateral Flexion Left 5 Lateral Flexion Right 10 ROM Limitations Soft Tissue Tightness Hip Goniometric Range of Motion Hip Right Passive Testing Position Supine Straight Leg Raise 70 Abduction 30 Internal Rotation 40 External Rotation 50 Left Passive Testing Position Supine Straight Leg Raise 75 Abduction 25 Internal Rotation 45 External Rotation 55 PT-OP-M Strength Start: 10/25/20 18:23 Freq: Status: Active Protocol: Document 10/26/20 13:34 LRN (Rec: 10/26/20 14:31 LRN [id number]) Hip Strength Hip Manual Muscle Testing Right Flexion (L2) 5 Normal Extension (S1) 5 Normal Abduction 5 Normal Adduction 5 Normal External Rotation 5 Normal Internal Rotation 5 Normal Left Flexion (L2) 5 Normal Extension (S1) 5 Normal Abduction 5 Normal Adduction 5 Normal External Rotation 5 Normal Internal Rotation 5 Normal PT-OP-Q Treatments Start: 10/25/20 18:23 Freq: Status: Active Protocol: Document 10/26/20 13:34 LRN (Rec: 10/26/20 18:38 LRN [id number]) Self-Care/Home Management Treatment Education Patient Education Home Exercise Program Other Education Discussed goals and results of evaluation. Education: Pt educated in use of Bladder Diary and I/S in tracking for 1 week. Activities Self-Care/Home Management Activities Issued & reviewed handout for Kegel exercises for Quick Flicks & Long Holds. PT-OP-T Assessment and Plan Start: 10/25/20 18:23 Freq: Status: Active Protocol: Document 11/30/20 13:34 LRN (Rec: 10/26/20 14:31 LRN [id number]) Physical Therapy Assessment Rehab Potential Rehabilitation Potential Good Evaluation Complexity Number of Personal Factors/Comorbidities 1-2 Number of Body Systems Impaired 4 or More Clinical Presentation at Evaluation Evolving Impairments Impairments Pain,ROM,Soft Tissue Mobility, Strength,Transfers Goals Four Impairment Pt lacks knowledge of proper transfers and PF care with exercise. Short Term Goal (STG) Pt will be educated in proper transfer techniques using proper breathing techniques and pt will be educated in best possible PF care with her in home exercise routines. STG Duration 11/09/20 Three Impairment Decreased PF strength ( Posterior 3/5, anterior & left 0/5, right 1/5) Short Term Goal (STG) Improve PF strength so that the bladder will not extend beyond the plane of the Labia Majora/Minora. STG Duration 11/23/20 Shelter Goal (LTG) Increase PF strength to no less than 2/5 with the pt able to present with a stage 3 prolapse in standing. LTG Duration 01/24/21 Two Impairment Stage 4 Cystocele (complete eversion of the total vaginal length) Short Term Goal (STG) Decrease cystocele to stage 3- 4 STG Duration 11/23/20 Shelter Goal (LTG) Decrease cystocele to stage 3 in order to prevent the pt from having to have PF surgery . LTG Duration 01/24/21 One Impairment Pt lacks appropriate self care HEP Short Term Goal (STG) Pt will be independent with a self care HEP to include PF strengthening, hip mobility exercises and core strengthening. STG Duration 11/23/20 Assessment Summary Assessment Pt presents with a severe cystocele, stage 4, with protrusion of the bladder, the total vaginal length and protruding past the plane of the Labia Majora and Labia Minora. I was able to reposition the bladder into place and the pt was able to perform a PF contraction with the bladder being drawn up and inward once the bladder had been repositioned. It is uncertain whether physical therapy will be enough to keep the bladder from dropping out of the PF. The pt is willing to try 4 weeks of therapy to see if there will be improvement, or if some other intervention (surgical) is needed. The pt is very red in her vaginal opening (4-8 of the pelvic floor clock), but she denies any pain or discomfort with palpation. She does note pain with sitting on the floor in the perineum that may be causing the pain when the bladder has dropped out. The pt has poor pelvic floor (PF) tissue health, with tissues appearing thin and dry. A vaginal cream may be helpful to improve her tissue health. The pt will benefit from physical therapy for PF strengthening, education in proper PF care and to minimize downward forces on her bladder through therapeutic activity training, proper breathing techniques, and evaluation of her with current exercise program. Physical Therapy Plan Frequency and Duration Frequency of Treatment 1x/Week Plan of Care Start Date 10/26/20 Plan of Care End Date 01/24/21 Therapeutic Interventions Therapeutic Interventions Home Exercise Program,Manual Therapy,Neuromuscular Re- education,Patient/Caregiver Education,Self-Care/Home Management,Soft Tissue Mobilization,Therapeutic Exercises Modalities Electric Stimulation Next Visit Focus/Plan Next Note Type Treatment Note Next Visit Plan Review bladder diary, assess constipation involvement & check core strength, education : proper breathing and transfer techniques, discuss her current exercise program and modify as needed to minimize further pressure and prolapse of bladder. Review PF strengthening in standing ( Hamstring stretch position) and initiate LE roll in/out ex with deep breathing on wedge. End with assessment of her prolapse and tissue health. In 4 weeks reassess for appropriateness of therapy.
--- NOTE | 2020-11-09 15:41 | PT.OTN ---
Current Diagnoses Stiffness of unspecified hip, not elsewhere classified (11/09/20) Pelvic muscle wasting (11/09/20) Postmenopausal atrophic vaginitis (11/09/20) Physical Therapy Treatment Note PT-OP-A Visit Information Start: 10/25/20 18:23 Freq: Status: Active Protocol: Document 11/09/20 14:27 LRN (Rec: 11/09/20 15:40 LRN [id number]) Out-Patient Physical Therapy Visit Information Visit Information Visit Type Treatment Note Visit Start Time 14:26 Visit Stop Time 15:09 Total Visit Minutes 43 Evaluation Information Evaluation Date 10/26/20 Precautions Precautions Osteopenia Arthritis PT-OP-B Current Condition Start: 10/25/20 18:23 Freq: Status: Active Protocol: Document 10/26/20 13:34 LRN (Rec: 10/26/20 14:31 LRN [id number]) Current Condition History of Current Condition Onset Date 6-7 yrs ago. Current Complaints Bulge in perineum & loss of sleep-wakes 2x @ night. History of Current Condition States she has known she has had an issue for 6-7 yrs, during her wellness exam she was given a choice to try PT before surgery or a pessary. States she has done a pessary and found it painful; therefore wasn't certain if she wanted to try a pessary again and decided to try PT rather than surgery during the Pandemic time. Now feels a weight as a bulge in perineum. Does exercises at home (ex videos hasfit). Prior Treatments and Tests 2 yrs ago: Pessary for <24 hrs, was found to be too painful. Treatment Goals Patient/Caregiver Goals Pt goal is to prevent having to have surgery or to learn if she needs to have surgery before 81 yrs old. Prior Functional Status Baseline Function- ADL's Independent Baseline Function- Mobility Independent Baseline Function- Recreation/Hobbies Exercised in gym. Bladder pain with exercise when sitting on hard floor (pain in perineum). Baseline Function- Other Walked 6 days per week, video ex 5x/week Current Functional Impairments (Reported) Functional Limitations- ADL's Hinders her ability to travel, pt must know where bathrooms are located. Functional Limitations- Recreation/ Less pain sitting ground (now Hobbies sits on carpet and mat) Functional Limitations- Other Bending over reaching for ground, sometimes pain in perineum. Personal Factors Other Personal Factors That May Effect Osteopenia Therapy/Recovery PT-OP-C Subjective Start: 10/25/20 18:23 Freq: Status: Active Protocol: Document 11/09/20 14:27 LRN (Rec: 11/09/20 15:40 LRN [id number]) OP-PT Subjective Patient Comments Patient Comments States only time she had urgency was at night. PT-OP-I Pelvic Floor Start: 10/25/20 18:23 Freq: Status: Active Protocol: Document 10/26/20 13:34 LRN (Rec: 10/26/20 18:35 LRN [id number]) Pelvic Floor Assessment Urine Pelvic Floor Surgery No Urinary Symptoms Prolapse,Falling Out Feeling/ Heavy,Pain Other Urinary Symptoms No urinary leakage Voiding Frequency 6-8 times a day Nocturia 2x Prolapse Cystocele Grade 4 Prolapse Comments Once bladder pushed back into vaginal canal, pt was able to pull the bladder up and in. Perineal Descent Resting Present Bearing Present Contraction Ability Voluntary Contraction Weak Manual Muscle Testing Left 0 Manual Muscle Testing Right 1 Manual Muscle Testing Anterior 1 Manual Muscle Testing Posterior 2 Muscle Endurance (Seconds) 3 Comments Pelvic Floor Comments Tissues dry, Redness at vaginal opening from 4-8 of the PF Clock without pain. PT-OP-J Posture/Palpation/Skin Start: 10/25/20 18:23 Freq: Status: Active Protocol: Document 10/26/20 13:34 LRN (Rec: 10/26/20 14:31 LRN [id number]) Posture Evaluation Comments Posture Comments Standing: Slight anterior tilt of pelvis, low gluteal muscle tone on right, slight forward head, L calcaneal EV. Palpation Assessment Location L lower back Palpation Location Lumbar paraspinals Palpation Findings Soft Tissue Tightness PT-OP-K Range of Motion Start: 10/25/20 18:23 Freq: Status: Active Protocol: Document 10/26/20 13:34 LRN (Rec: 10/26/20 14:31 LRN [id number]) Lumbar Spine Range of Motion Lumbar Spine Active Degrees Testing Position Standing Flexion 70 Extension 25 Lateral Flexion Left 5 Lateral Flexion Right 10 ROM Limitations Soft Tissue Tightness Hip Goniometric Range of Motion Hip Right Passive Testing Position Supine Straight Leg Raise 70 Abduction 30 Internal Rotation 40 External Rotation 50 Left Passive Testing Position Supine Straight Leg Raise 75 Abduction 25 Internal Rotation 45 External Rotation 55 PT-OP-M Strength Start: 10/25/20 18:23 Freq: Status: Active Protocol: Document 10/26/20 13:34 LRN (Rec: 10/26/20 14:31 LRN [id number]) Hip Strength Hip Manual Muscle Testing Right Flexion (L2) 5 Normal Extension (S1) 5 Normal Abduction 5 Normal Adduction 5 Normal External Rotation 5 Normal Internal Rotation 5 Normal Left Flexion (L2) 5 Normal Extension (S1) 5 Normal Abduction 5 Normal Adduction 5 Normal External Rotation 5 Normal Internal Rotation 5 Normal PT-OP-Q Treatments Start: 10/25/20 18:23 Freq: Status: Active Protocol: Document 11/09/20 14:27 LRN (Rec: 11/09/20 15:40 LRN [id number]) Therapeutic Exercises Supine Exercises PF w/LE roll in/out w/deep breathing Supine Exercise Name Pillow/PF w/LE roll in/out w/ deep breathing Equipment Used Pillow under pelvis Reps/Minutes 4' LE roll in/out w/deep breathing Supine Exercise Name Pillow/LE roll in/out w/deep breathing Equipment Used Pillow under pelvis Reps/Minutes 4' Deep Breathing Supine Exercise Name Deep Breathing Reps/Minutes 2' Comments V cuing needed thoughout ex for greater abdominal excursion. Standing Exercises PF w/hamstring stretch Standing Exercise Name PF contraction with Hamstring stretch Reps/Minutes 3' Comments Pt not able to feel PF contraction Self-Care/Home Management Treatment Education Patient Education Home Exercise Program,Safety Other Education Discussed pt's bladder diary and reasons for prolonged voiding times. Discussed prolapse with use of handout, safety precautions of having a prolapse & options of care ( discussed ex, pessary, surgery ). Discussed PF health with discussion of use of estrogen cream and/or a natural anti- aging cream Julva. Activities Self-Care/Home Management Activities Reviewed previous HEP with discussion of differing positions the pt could do them in, recommending supine w/ pillow under hips. Issued and reviewed HEP: Deep Breathing & LE roll in/outs w /added PF contraction and deep breathing. Issued handout for Julva, natural anti-aging cream. PT-OP-T Assessment and Plan Start: 10/25/20 18:23 Freq: Status: Active Protocol: Document 11/09/20 14:27 LRN (Rec: 11/09/20 15:40 LRN [id number]) Physical Therapy Assessment Goals Four Impairment Pt lacks knowledge of proper transfers and PF care with exercise. Short Term Goal (STG) Pt will be educated in proper transfer techniques using proper breathing techniques and pt will be educated in best possible PF care with her in home exercise routines. STG Duration 11/09/20 Three Impairment Decreased PF strength ( Posterior 3/5, anterior & left 0/5, right 1/5) Short Term Goal (STG) Improve PF strength so that the bladder will not extend beyond the plane of the Labia Majora/Minora. STG Duration 11/23/20 [facility] Goal (LTG) Increase PF strength to no less than 2/5 with the pt able to present with a stage 3 prolapse in standing. LTG Duration 01/24/21 Two Impairment Stage 4 Cystocele (complete eversion of the total vaginal length) Short Term Goal (STG) Decrease cystocele to stage 3- 4 STG Duration 11/23/20 [facility] Goal (LTG) Decrease cystocele to stage 3 in order to prevent the pt from having to have PF surgery . LTG Duration 01/24/21 One Impairment Pt lacks appropriate self care HEP Short Term Goal (STG) Pt will be independent with a self care HEP to include PF strengthening, hip mobility exercises and core strengthening. STG Duration 11/23/20 (11/09/20: Progressing) Progress Towards Goals Progress Comments Progressing PF strengthening. Assessment Summary Assessment Per bladder diary, Blank has excessively long urination times due to severity of prolapse. No complaints of constipation. Pt hydration levels are low, but she has no leakage and no obvious pain or discomfort in bladder region. Pt has poor awareness of her PF and whether she is doing a PF contraction with hamstring stretch in standing. Pt has possibly better awareness in supine w/pllow under pelvis. With deep breathing pt has low abdominal excursion and slightly fast in breath. Good understanding of HEP. Physical Therapy Plan Frequency and Duration Frequency of Treatment 1x/Week Plan of Care Start Date 10/26/20 Plan of Care End Date 01/24/21 Next Visit Focus/Plan Next Note Type Treatment Note Next Visit Plan Try visual feedback of PF contraction and visual understanding of prolapse. Check core strength, education : transfer techniques & genital hygiene; discuss her current exercise program and modify as needed to minimize further pressure and prolapse of bladder. Issue handout for PF strengthening in standing (Hamstring stretch position) and progress LE roll in/out ex with deep breathing on pilow/ wedge as appropriate. Monitor prolapse and tissue health. In 3 weeks reassess for appropriateness of therapy.
--- NOTE | 2020-11-23 16:23 | PT.OTN ---
Current Diagnoses Stiffness of unspecified hip, not elsewhere classified (11/23/20) Pelvic muscle wasting (11/23/20) Postmenopausal atrophic vaginitis (11/23/20) Physical Therapy Treatment Note PT-OP-A Visit Information Start: 10/25/20 18:23 Freq: Status: Active Protocol: Document 11/23/20 14:25 LRN (Rec: 11/23/20 15:08 LRN [id number]) Out-Patient Physical Therapy Visit Information Visit Information Visit Type Treatment Note Visit Start Time 14:25 Visit Stop Time 15:06 Total Visit Minutes 41 Visit Number 3 Evaluation Information Evaluation Date 10/26/20 Precautions Precautions Osteopenia Arthritis PT-OP-B Current Condition Start: 10/25/20 18:23 Freq: Status: Active Protocol: Document 10/26/20 13:34 LRN (Rec: 10/26/20 14:31 LRN [id number]) Current Condition History of Current Condition Onset Date 6-7 yrs ago. Current Complaints Bulge in perineum & loss of sleep-wakes 2x @ night. History of Current Condition States she has known she has had an issue for 6-7 yrs, during her wellness exam she was given a choice to try PT before surgery or a pessary. States she has done a pessary and found it painful; therefore wasn't certain if she wanted to try a pessary again and decided to try PT rather than surgery during the Pandemic time. Now feels a weight as a bulge in perineum. Does exercises at home (ex videos hasfit). Prior Treatments and Tests 2 yrs ago: Pessary for <24 hrs, was found to be too painful. Treatment Goals Patient/Caregiver Goals Pt goal is to prevent having to have surgery or to learn if she needs to have surgery before 81 yrs old. Prior Functional Status Baseline Function- ADL's Independent Baseline Function- Mobility Independent Baseline Function- Recreation/Hobbies Exercised in gym. Bladder pain with exercise when sitting on hard floor (pain in perineum). Baseline Function- Other Walked 6 days per week, video ex 5x/week Current Functional Impairments (Reported) Functional Limitations- ADL's Hinders her ability to travel, pt must know where bathrooms are located. Functional Limitations- Recreation/ Less pain sitting ground (now Hobbies sits on carpet and mat) Functional Limitations- Other Bending over reaching for ground, sometimes pain in perineum. Personal Factors Other Personal Factors That May Effect Osteopenia Therapy/Recovery PT-OP-C Subjective Start: 10/25/20 18:23 Freq: Status: Active Protocol: Document 11/23/20 14:25 LRN (Rec: 11/23/20 15:08 LRN [id number]) OP-PT Subjective Patient Comments Patient Comments Doing exercises with no noticeable changes. PT-OP-I Pelvic Floor Start: 10/25/20 18:23 Freq: Status: Active Protocol: Document 10/26/20 13:34 LRN (Rec: 10/26/20 18:35 LRN [id number]) Pelvic Floor Assessment Urine Pelvic Floor Surgery No Urinary Symptoms Prolapse,Falling Out Feeling/ Heavy,Pain Other Urinary Symptoms No urinary leakage Voiding Frequency 6-8 times a day Nocturia 2x Prolapse Cystocele Grade 4 Prolapse Comments Once bladder pushed back into vaginal canal, pt was able to pull the bladder up and in. Perineal Descent Resting Present Bearing Present Contraction Ability Voluntary Contraction Weak Manual Muscle Testing Left 0 Manual Muscle Testing Right 1 Manual Muscle Testing Anterior 1 Manual Muscle Testing Posterior 2 Muscle Endurance (Seconds) 3 Comments Pelvic Floor Comments Tissues dry, Redness at vaginal opening from 4-8 of the PF Clock without pain. PT-OP-J Posture/Palpation/Skin Start: 10/25/20 18:23 Freq: Status: Active Protocol: Document 10/26/20 13:34 LRN (Rec: 10/26/20 14:31 LRN [id number]) Posture Evaluation Comments Posture Comments Standing: Slight anterior tilt of pelvis, low gluteal muscle tone on right, slight forward head, L calcaneal EV. Palpation Assessment Location L lower back Palpation Location Lumbar paraspinals Palpation Findings Soft Tissue Tightness PT-OP-K Range of Motion Start: 10/25/20 18:23 Freq: Status: Active Protocol: Document 10/26/20 13:34 LRN (Rec: 10/26/20 14:31 LRN [id number]) Lumbar Spine Range of Motion Lumbar Spine Active Degrees Testing Position Standing Flexion 70 Extension 25 Lateral Flexion Left 5 Lateral Flexion Right 10 ROM Limitations Soft Tissue Tightness Hip Goniometric Range of Motion Hip Right Passive Testing Position Supine Straight Leg Raise 70 Abduction 30 Internal Rotation 40 External Rotation 50 Left Passive Testing Position Supine Straight Leg Raise 75 Abduction 25 Internal Rotation 45 External Rotation 55 PT-OP-M Strength Start: 10/25/20 18:23 Freq: Status: Active Protocol: Document 10/26/20 13:34 LRN (Rec: 10/26/20 14:31 LRN [id number]) Hip Strength Hip Manual Muscle Testing Right Flexion (L2) 5 Normal Extension (S1) 5 Normal Abduction 5 Normal Adduction 5 Normal External Rotation 5 Normal Internal Rotation 5 Normal Left Flexion (L2) 5 Normal Extension (S1) 5 Normal Abduction 5 Normal Adduction 5 Normal External Rotation 5 Normal Internal Rotation 5 Normal PT-OP-Q Treatments Start: 10/25/20 18:23 Freq: Status: Active Protocol: Document 11/23/20 14:25 LRN (Rec: 11/23/20 15:08 LRN [id number]) Therapeutic Exercises Supine Exercises Bridge w/PF/LE roll in&out Supine Exercise Name Bridge w/PF/LE roll in&out Reps/Minutes 10x Comments Extra time to coordinate all movements PF w/LE roll in/out w/deep breathing Supine Exercise Name Pillow/PF w/LE roll in/out w/ deep breathing Equipment Used wedge Reps/Minutes 4' LE roll in/out w/deep breathing Supine Exercise Name Pillow/LE roll in/out w/deep breathing Equipment Used Pillow under pelvis Reps/Minutes 5' Deep Breathing Supine Exercise Name Deep Breathing Reps/Minutes 2' Comments V cuing needed. Sitting Exercises PF/LE roll in/outs Sitting Exercise Name PF/LE roll in/outs Equipment Used Lev 2 TB and Pillow Reps/Minutes 20x alternating PF holds Standing Exercises Hip circles Standing Exercise Name Hip Circles w/PF contraction Side bilateral Reps/Minutes 10x 2 CW & CCW alternating [place] with PF contraction PF w/hamstring stretch Standing Exercise Name PF contraction with Hamstring stretch Reps/Minutes 3' Comments Pt not able to feel PF contraction Self-Care/Home Management Treatment Education Patient Education Home Exercise Program Other Education Issued handouts & reviewed/ discussed General Vulvar Care & Genital Hygiene. Pt education in coordination of proper breathing to facilitate PF strengthening with transfers and functional activities. Activities Self-Care/Home Management Activities Issued Lev 2 TBand for HEP. Issued & reviewed HEP: Advanced Kegels with assisted Pelvic Muscle Tightening - using ADDuctor/inner thigh muscles, & using Obturator Internus Ms/Hip ER's. PT-OP-T Assessment and Plan Start: 10/25/20 18:23 Freq: Status: Active Protocol: Document 11/23/20 14:25 LRN (Rec: 11/23/20 15:08 LRN [id number]) Physical Therapy Assessment Goals Four Impairment Pt lacks knowledge of proper transfers and PF care with exercise. Short Term Goal (STG) Pt will be educated in proper transfer techniques using proper breathing techniques and pt will be educated in best possible PF care with her in home exercise routines. (11/23/20: Pt educated in proper transfer techniques using proper breathing techniques) STG Duration 11/09/20 (11/23/20: Partially met) Three Impairment Decreased PF strength ( Posterior 3/5, anterior & left 0/5, right 1/5) Short Term Goal (STG) Improve PF strength so that the bladder will not extend beyond the plane of the Labia Majora/Minora. STG Duration 11/23/20 Skilled Nursing Goal (LTG) Increase PF strength to no less than 2/5 with the pt able to present with a stage 3 prolapse in standing. LTG Duration 01/24/21 Two Impairment Stage 4 Cystocele (complete eversion of the total vaginal length) Short Term Goal (STG) Decrease cystocele to stage 3- 4 STG Duration 11/23/20 Skilled Nursing Goal (LTG) Decrease cystocele to stage 3 in order to prevent the pt from having to have PF surgery . LTG Duration 01/24/21 One Impairment Pt lacks appropriate self care HEP Short Term Goal (STG) Pt will be independent with a self care HEP to include PF strengthening, hip mobility exercises and core strengthening. STG Duration 11/23/20 (11/23/20: Progressing) Progress Towards Goals Progress Comments Progressed STG #4 Assessment Summary Assessment Pt seems to have improved awareness of doing a PF contraction; therefore hopeful that improved PF strength will provide organ support resulting in decreased urination time. She needed retraining on deep breathing and tends to chest breath. Further review and training needed for proper breathing with functional activities ( transfers) and movement. Physical Therapy Plan Frequency and Duration Frequency of Treatment 1x/Week Plan of Care Start Date 10/26/20 Plan of Care End Date 01/24/21 Next Visit Focus/Plan Next Note Type Treatment Note Next Visit Plan Assess pt understanding of proper PF contraction in presence of prolapse (improve coordination of PF contraction ). Check core strength; discuss her current exercise program and modify as needed to minimize further pressure and prolapse of bladder. Issue handout for PF strengthening in standing ( Hamstring stretch position) and progress LE roll in/out ex with deep breathing on pilow/ wedge as appropriate. Add PF clocks on T-Ball. Monitor prolapse and tissue health. In 3 weeks reassess for appropriateness of therapy.
--- NOTE | 2020-11-30 15:45 | PT.OTN ---
Current Diagnoses Stiffness of unspecified hip, not elsewhere classified (11/30/20) Pelvic muscle wasting (11/30/20) Postmenopausal atrophic vaginitis (11/30/20) Physical Therapy Treatment Note PT-OP-A Visit Information Start: 10/25/20 18:23 Freq: Status: Active Protocol: Document 11/30/20 14:20 LRN (Rec: 11/30/20 15:41 LRN [id number]) Out-Patient Physical Therapy Visit Information Visit Information Visit Type Treatment Note Visit Start Time 14:20 Visit Stop Time 15:03 Total Visit Minutes 43 Visit Number 4 Evaluation Information Evaluation Date 10/26/20 Precautions Precautions Osteopenia Arthritis PT-OP-B Current Condition Start: 10/25/20 18:23 Freq: Status: Active Protocol: Document 10/26/20 13:34 LRN (Rec: 10/26/20 14:31 LRN [id number]) Current Condition History of Current Condition Onset Date 6-7 yrs ago. Current Complaints Bulge in perineum & loss of sleep-wakes 2x @ night. History of Current Condition States she has known she has had an issue for 6-7 yrs, during her wellness exam she was given a choice to try PT before surgery or a pessary. States she has done a pessary and found it painful; therefore wasn't certain if she wanted to try a pessary again and decided to try PT rather than surgery during the Pandemic time. Now feels a weight as a bulge in perineum. Does exercises at home (ex videos hasfit). Prior Treatments and Tests 2 yrs ago: Pessary for <24 hrs, was found to be too painful. Treatment Goals Patient/Caregiver Goals Pt goal is to prevent having to have surgery or to learn if she needs to have surgery before 81 yrs old. Prior Functional Status Baseline Function- ADL's Independent Baseline Function- Mobility Independent Baseline Function- Recreation/Hobbies Exercised in gym. Bladder pain with exercise when sitting on hard floor (pain in perineum). Baseline Function- Other Walked 6 days per week, video ex 5x/week Current Functional Impairments (Reported) Functional Limitations- ADL's Hinders her ability to travel, pt must know where bathrooms are located. Functional Limitations- Recreation/ Less pain sitting ground (now Hobbies sits on carpet and mat) Functional Limitations- Other Bending over reaching for ground, sometimes pain in perineum. Personal Factors Other Personal Factors That May Effect Osteopenia Therapy/Recovery PT-OP-C Subjective Start: 10/25/20 18:23 Freq: Status: Active Protocol: Document 11/30/20 14:20 LRN (Rec: 11/30/20 15:41 LRN [id number]) OP-PT Subjective Patient Comments Patient Comments States the ex's gave with lifting hips aggrevated the back and did only the initial ex's. Instead put hips on pillows and did the ex. PT-OP-I Pelvic Floor Start: 10/25/20 18:23 Freq: Status: Active Protocol: Document 10/26/20 13:34 LRN (Rec: 10/26/20 18:35 LRN [id number]) Pelvic Floor Assessment Urine Pelvic Floor Surgery No Urinary Symptoms Prolapse,Falling Out Feeling/ Heavy,Pain Other Urinary Symptoms No urinary leakage Voiding Frequency 6-8 times a day Nocturia 2x Prolapse Cystocele Grade 4 Prolapse Comments Once bladder pushed back into vaginal canal, pt was able to pull the bladder up and in. Perineal Descent Resting Present Bearing Present Contraction Ability Voluntary Contraction Weak Manual Muscle Testing Left 0 Manual Muscle Testing Right 1 Manual Muscle Testing Anterior 1 Manual Muscle Testing Posterior 2 Muscle Endurance (Seconds) 3 Comments Pelvic Floor Comments Tissues dry, Redness at vaginal opening from 4-8 of the PF Clock without pain. PT-OP-J Posture/Palpation/Skin Start: 10/25/20 18:23 Freq: Status: Active Protocol: Document 10/26/20 13:34 LRN (Rec: 10/26/20 14:31 LRN [id number]) Posture Evaluation Comments Posture Comments Standing: Slight anterior tilt of pelvis, low gluteal muscle tone on right, slight forward head, L calcaneal EV. Palpation Assessment Location L lower back Palpation Location Lumbar paraspinals Palpation Findings Soft Tissue Tightness PT-OP-K Range of Motion Start: 10/25/20 18:23 Freq: Status: Active Protocol: Document 10/26/20 13:34 LRN (Rec: 10/26/20 14:31 LRN [id number]) Lumbar Spine Range of Motion Lumbar Spine Active Degrees Testing Position Standing Flexion 70 Extension 25 Lateral Flexion Left 5 Lateral Flexion Right 10 ROM Limitations Soft Tissue Tightness Hip Goniometric Range of Motion Hip Right Passive Testing Position Supine Straight Leg Raise 70 Abduction 30 Internal Rotation 40 External Rotation 50 Left Passive Testing Position Supine Straight Leg Raise 75 Abduction 25 Internal Rotation 45 External Rotation 55 PT-OP-M Strength Start: 10/25/20 18:23 Freq: Status: Active Protocol: Document 10/26/20 13:34 LRN (Rec: 10/26/20 14:31 LRN [id number]) Hip Strength Hip Manual Muscle Testing Right Flexion (L2) 5 Normal Extension (S1) 5 Normal Abduction 5 Normal Adduction 5 Normal External Rotation 5 Normal Internal Rotation 5 Normal Left Flexion (L2) 5 Normal Extension (S1) 5 Normal Abduction 5 Normal Adduction 5 Normal External Rotation 5 Normal Internal Rotation 5 Normal PT-OP-Q Treatments Start: 10/25/20 18:23 Freq: Status: Active Protocol: Document 11/30/20 14:20 LRN (Rec: 11/30/20 15:41 LRN [id number]) Therapeutic Exercises Supine Exercises Bridge w/PF/LE roll in&out Comments DC'd due to c/o increased LBP w/exercise. PF w/LE roll in/out w/deep breathing Supine Exercise Name Pillow/PF w/LE roll in/out w/ deep breathing Equipment Used wedge Reps/Minutes 4' LE roll in/out w/deep breathing Supine Exercise Name Pillow/LE roll in/out w/deep breathing Equipment Used Pillow under pelvis Reps/Minutes 8' Deep Breathing Supine Exercise Name Deep Breathing Reps/Minutes 3' Comments V cuing needed. Pt needed to have hands on chest & belly Sidelying Exercises Reverse Clamshell Sidelying Exercise Name Reverse Clamshell Side bilateral Reps/Minutes 10x each holding PF contraction 2 reps Comments Extra time for coordinating proper breathing & PF contraction w/ex Clamshell Sidelying Exercise Name Clamshell w/PF contraction & deep breathing Side bilateral Reps/Minutes 15 x 1 Comments Extra time for coordinating proper breathing & PF contraction w/ex Therapeutic Activity Therapeutic Activity Sit to Stand w/proper breathing Name Sit<>Stand w/proper breathing Reps/Minutes 5' Comments Extra time for training. Pt needed constant cuing to exhale on exertion. Added PF contraction when pt seemed ready to add to movement. Sup<>Sit w/proper breathing Name Sup<>Sit w/proper breathing Reps/Minutes 3' Comments Extra time for training. Added PF contraction when breathing seemed appropriate Self-Care/Home Management Treatment Education Patient Education Home Exercise Program Other Education Briefly educated pt in proper breathing w/PF contraction with squatting, lifting. Discussed/reviewed pt's HEP of abdominal strengthening ( crunch, bycycle) worsening cystocele. Activities Self-Care/Home Management Activities Issued & reviewed HEP: Clamshell & reverse clamshell ex. PT-OP-T Assessment and Plan Start: 10/25/20 18:23 Freq: Status: Active Protocol: Document 11/30/20 14:20 LRN (Rec: 11/30/20 15:41 LRN [id number]) Physical Therapy Assessment Goals Four Impairment Pt lacks knowledge of proper transfers and PF care with exercise. Short Term Goal (STG) Pt will be educated in proper transfer techniques using proper breathing techniques and pt will be educated in best possible PF care with her in home exercise routines. (11/23/20: Pt educated in proper transfer techniques using proper breathing techniques) STG Duration 11/09/20 (11/23/20: Partially met) Three Impairment Decreased PF strength ( Posterior 3/5, anterior & left 0/5, right 1/5) Short Term Goal (STG) Improve PF strength so that the bladder will not extend beyond the plane of the Labia Majora/Minora. STG Duration 11/23/20 Retirement Goal (LTG) Increase PF strength to no less than 2/5 with the pt able to present with a stage 3 prolapse in standing. LTG Duration 01/24/21 Two Impairment Stage 4 Cystocele (complete eversion of the total vaginal length) Short Term Goal (STG) Decrease cystocele to stage 3- 4 STG Duration 11/23/20 Gasoline Service Attendant Goal (LTG) Decrease cystocele to stage 3 in order to prevent the pt from having to have PF surgery . LTG Duration 01/24/21 One Impairment Pt lacks appropriate self care HEP Short Term Goal (STG) Pt will be independent with a self care HEP to include PF strengthening, hip mobility exercises and core strengthening. STG Duration 11/23/20 (11/23/20: Progressing) Assessment Summary Assessment Pt appears to be aware of proper PF contraction with report of being able to feel PF lift. Pt is not able to tolerate much L hip movement with clamshell/reverse clamshell due to L hip/LBP with exercise. Pt moves well with R hip; therefore must hold back on R AROM during ex. Physical Therapy Plan Frequency and Duration Frequency of Treatment 1x/Week Plan of Care Start Date 10/26/20 Plan of Care End Date 01/24/21 Next Visit Focus/Plan Next Note Type Treatment Note Next Visit Plan Assess pt's need for manual therapy to decreased L SIJ pain from previous L hip mobility exercises (LE roll in /out). Review/Add cat/cow/Wag tail, Rock Backs & Child's Pose. Consider use of E-Stim for strengthening. Manual therapy to Low back if LBP to prevent hindering PF strengthening progression. Check core strength; discuss her other current exercise program (not abdominals) and modify as needed to minimize further pressure and prolapse of bladder. Issue handout for PF strengthening in standing ( Hamstring stretch position) and progress LE roll in/out ex with deep breathing on pilow/ wedge as appropriate. Add PF clocks on T-Ball. Monitor prolapse and tissue health. In 3 weeks reassess for appropriateness of therapy.
--- NOTE | 2020-12-07 16:51 | PT.OTN ---
Current Diagnoses Stiffness of unspecified hip, not elsewhere classified (12/07/20) Pelvic muscle wasting (12/07/20) Postmenopausal atrophic vaginitis (12/07/20) Physical Therapy Treatment Note PT-OP-A Visit Information Start: 10/25/20 18:23 Freq: Status: Active Protocol: Document 12/07/20 14:20 LRN (Rec: 12/07/20 15:06 LRN [id number]) Out-Patient Physical Therapy Visit Information Visit Information Visit Type Treatment Note Visit Start Time 14:20 Visit Stop Time 15:05 Total Visit Minutes 45 Visit Number 5 Evaluation Information Evaluation Date 10/26/20 Precautions Precautions Osteopenia Arthritis PT-OP-B Current Condition Start: 10/25/20 18:23 Freq: Status: Active Protocol: Document 10/26/20 13:34 LRN (Rec: 10/26/20 14:31 LRN [id number]) Current Condition History of Current Condition Onset Date 6-7 yrs ago. Current Complaints Bulge in perineum & loss of sleep-wakes 2x @ night. History of Current Condition States she has known she has had an issue for 6-7 yrs, during her wellness exam she was given a choice to try PT before surgery or a pessary. States she has done a pessary and found it painful; therefore wasn't certain if she wanted to try a pessary again and decided to try PT rather than surgery during the Pandemic time. Now feels a weight as a bulge in perineum. Does exercises at home (ex videos hasfit). Prior Treatments and Tests 2 yrs ago: Pessary for <24 hrs, was found to be too painful. Treatment Goals Patient/Caregiver Goals Pt goal is to prevent having to have surgery or to learn if she needs to have surgery before 81 yrs old. Prior Functional Status Baseline Function- ADL's Independent Baseline Function- Mobility Independent Baseline Function- Recreation/Hobbies Exercised in gym. Bladder pain with exercise when sitting on hard floor (pain in perineum). Baseline Function- Other Walked 6 days per week, video ex 5x/week Current Functional Impairments (Reported) Functional Limitations- ADL's Hinders her ability to travel, pt must know where bathrooms are located. Functional Limitations- Recreation/ Less pain sitting ground (now Hobbies sits on carpet and mat) Functional Limitations- Other Bending over reaching for ground, sometimes pain in perineum. Personal Factors Other Personal Factors That May Effect Osteopenia Therapy/Recovery PT-OP-C Subjective Start: 10/25/20 18:23 Freq: Status: Active Protocol: Document 12/07/20 14:20 LRN (Rec: 12/07/20 15:06 LRN [id number]) OP-PT Subjective Patient Comments Patient Comments Didn't do ex's to aggrevate back or hip, so good today. PT-OP-I Pelvic Floor Start: 10/25/20 18:23 Freq: Status: Active Protocol: Document 10/26/20 13:34 LRN (Rec: 10/26/20 18:35 LRN [id number]) Pelvic Floor Assessment Urine Pelvic Floor Surgery No Urinary Symptoms Prolapse,Falling Out Feeling/ Heavy,Pain Other Urinary Symptoms No urinary leakage Voiding Frequency 6-8 times a day Nocturia 2x Prolapse Cystocele Grade 4 Prolapse Comments Once bladder pushed back into vaginal canal, pt was able to pull the bladder up and in. Perineal Descent Resting Present Bearing Present Contraction Ability Voluntary Contraction Weak Manual Muscle Testing Left 0 Manual Muscle Testing Right 1 Manual Muscle Testing Anterior 1 Manual Muscle Testing Posterior 2 Muscle Endurance (Seconds) 3 Comments Pelvic Floor Comments Tissues dry, Redness at vaginal opening from 4-8 of the PF Clock without pain. PT-OP-J Posture/Palpation/Skin Start: 10/25/20 18:23 Freq: Status: Active Protocol: Document 10/26/20 13:34 LRN (Rec: 10/26/20 14:31 LRN [id number]) Posture Evaluation Comments Posture Comments Standing: Slight anterior tilt of pelvis, low gluteal muscle tone on right, slight forward head, L calcaneal EV. Palpation Assessment Location L lower back Palpation Location Lumbar paraspinals Palpation Findings Soft Tissue Tightness PT-OP-K Range of Motion Start: 10/25/20 18:23 Freq: Status: Active Protocol: Document 10/26/20 13:34 LRN (Rec: 10/26/20 14:31 LRN [id number]) Lumbar Spine Range of Motion Lumbar Spine Active Degrees Testing Position Standing Flexion 70 Extension 25 Lateral Flexion Left 5 Lateral Flexion Right 10 ROM Limitations Soft Tissue Tightness Hip Goniometric Range of Motion Hip Right Passive Testing Position Supine Straight Leg Raise 70 Abduction 30 Internal Rotation 40 External Rotation 50 Left Passive Testing Position Supine Straight Leg Raise 75 Abduction 25 Internal Rotation 45 External Rotation 55 PT-OP-M Strength Start: 10/25/20 18:23 Freq: Status: Active Protocol: Document 10/26/20 13:34 LRN (Rec: 10/26/20 14:31 LRN [id number]) Hip Strength Hip Manual Muscle Testing Right Flexion (L2) 5 Normal Extension (S1) 5 Normal Abduction 5 Normal Adduction 5 Normal External Rotation 5 Normal Internal Rotation 5 Normal Left Flexion (L2) 5 Normal Extension (S1) 5 Normal Abduction 5 Normal Adduction 5 Normal External Rotation 5 Normal Internal Rotation 5 Normal PT-OP-Q Treatments Start: 10/25/20 18:23 Freq: Status: Active Protocol: Document 12/07/20 14:20 LRN (Rec: 12/07/20 15:06 LRN [id number]) Therapeutic Exercises Supine Exercises PF w/LE roll in/out w/deep breathing Supine Exercise Name Pillow/PF w/LE roll in/out w/ deep breathing Equipment Used wedge Reps/Minutes 7' Sidelying Exercises PF/Clamshell Sidelying Exercise Name Clamshell w/PF/Deep breathing Reps/Minutes 4' holding PF contraction 2 reps, relax 4 reps PF/Reverse clamshell Sidelying Exercise Name Proper breathing with reverse clamshell f/b PF contraction Side bilateral Reps/Minutes 4' holding PF contraction 2 reps, relax 4 reps Reverse Clamshell Sidelying Exercise Name Reverse Clamshell w/proper breathing Side bilateral Reps/Minutes 4' Comments Extra time for coordinating proper breathing & PF contraction w/ex Clamshell Sidelying Exercise Name Clamshell w/ deep breathing Side bilateral Reps/Minutes 4' Comments Extra time for coordinating proper breathing & PF contraction w/ex Standing Exercises Hip circles Standing Exercise Name CW & CCW hip circles PF w/hamstring stretch Standing Exercise Name Hamstring stretch position for bladder lift Comments Pt feeling more of prolapse, due to tightening of abdominals and breathhold Self-Care/Home Management Treatment Education Patient Education Home Exercise Program Other Education Extensive education of PF awareness using visual feedback in supine and pt watching prolapse with PF contractions and in different hip positions (level and on pillows). Activities Self-Care/Home Management Activities HEP issued & reviewed: Clamshell & reverse clamshell ex with I/S for proper breathing with leg movement. PT-OP-T Assessment and Plan Start: 10/25/20 18:23 Freq: Status: Active Protocol: Document 12/07/20 14:20 LRN (Rec: 12/07/20 15:06 LRN [id number]) Physical Therapy Assessment Goals Four Impairment Pt lacks knowledge of proper transfers and PF care with exercise. Short Term Goal (STG) Pt will be educated in proper transfer techniques using proper breathing techniques and pt will be educated in best possible PF care with her in home exercise routines. (11/23/20: Pt educated in proper transfer techniques using proper breathing techniques) STG Duration 11/09/20 (11/23/20: Partially met) Three Impairment Decreased PF strength ( Posterior 3/5, anterior & left 0/5, right 1/5) Short Term Goal (STG) Improve PF strength so that the bladder will not extend beyond the plane of the Labia Majora/Minora. STG Duration 11/23/20 Alf Goal (LTG) Increase PF strength to no less than 2/5 with the pt able to present with a stage 3 prolapse in standing. LTG Duration 01/24/21 Two Impairment Stage 4 Cystocele (complete eversion of the total vaginal length) Short Term Goal (STG) Decrease cystocele to stage 3- 4 STG Duration 11/23/20 (12/07/20: No change) Rugby League Footballer Goal (LTG) Decrease cystocele to stage 3 in order to prevent the pt from having to have PF surgery . LTG Duration 01/24/21 One Impairment Pt lacks appropriate self care HEP Short Term Goal (STG) Pt will be independent with a self care HEP to include PF strengthening, hip mobility exercises and core strengthening. STG Duration 11/23/20 (12/07/20: Progressing) Assessment Summary Assessment Pt did not need treatment to L SIJ with resolution of her back pain over time once stopping bridging with LE roll in/outs. Pt bladder moderately extending beyond vaginal opening to start. Once repositioned in towards vagina, pt was able to pull bladder inward. Pt PF tissues appear thin and somewhat dry. With ex pt is very tight in abdominal region and tends to hold or have shallow breaths with ex; therefore promoting prolapse. Physical Therapy Plan Frequency and Duration Frequency of Treatment 1x/Week Plan of Care Start Date 10/26/20 Plan of Care End Date 01/24/21 Other Referrals/Consults Referrals/Consults Recommended Estrogen cream for PF/vaginal tissues. Next Visit Focus/Plan Next Note Type Treatment Note Next Visit Plan 2 more visits, discuss continuation of therapy if no change in prolapse. Discuss use of estrogen cream to improve PF health. Review and modify as needed pt's current HEP for appropriateness in PF care (goal #4). Review/Add: cat/cow/Wag tail, Rock Backs & Child's Pose. Consider use of E-Stim for strengthening. Check core strength; discuss her other current exercise program (not abdominals) and modify as needed to minimize further pressure and prolapse of bladder. Issue handout for PF strengthening in standing ( Hamstring stretch position), improve abdominal excursion with deep breathing and progress LE roll in/out ex with deep breathing on pilow/ wedge as appropriate. Add PF clocks on T-Ball. Monitor prolapse and tissue health. In 3 weeks reassess for appropriateness of therapy.
--- NOTE | 2020-12-14 16:15 | PT.OTN ---
Current Diagnoses Stiffness of unspecified hip, not elsewhere classified (12/14/20) Pelvic muscle wasting (12/14/20) Postmenopausal atrophic vaginitis (12/14/20) Physical Therapy Treatment Note PT-OP-A Visit Information Start: 10/25/20 18:23 Freq: Status: Active Protocol: Document 12/14/20 14:24 LRN (Rec: 12/14/20 15:06 LRN [id number]) Out-Patient Physical Therapy Visit Information Visit Information Visit Type Treatment Note Visit Start Time 14:24 Visit Stop Time 15:00 Total Visit Minutes 36 Visit Number 6 Evaluation Information Evaluation Date 10/26/20 Precautions Precautions Osteopenia Arthritis PT-OP-B Current Condition Start: 10/25/20 18:23 Freq: Status: Active Protocol: Document 10/26/20 13:34 LRN (Rec: 10/26/20 14:31 LRN [id number]) Current Condition History of Current Condition Onset Date 6-7 yrs ago. Current Complaints Bulge in perineum & loss of sleep-wakes 2x @ night. History of Current Condition States she has known she has had an issue for 6-7 yrs, during her wellness exam she was given a choice to try PT before surgery or a pessary. States she has done a pessary and found it painful; therefore wasn't certain if she wanted to try a pessary again and decided to try PT rather than surgery during the Pandemic time. Now feels a weight as a bulge in perineum. Does exercises at home (ex videos hasfit). Prior Treatments and Tests 2 yrs ago: Pessary for <24 hrs, was found to be too painful. Treatment Goals Patient/Caregiver Goals Pt goal is to prevent having to have surgery or to learn if she needs to have surgery before 81 yrs old. Prior Functional Status Baseline Function- ADL's Independent Baseline Function- Mobility Independent Baseline Function- Recreation/Hobbies Exercised in gym. Bladder pain with exercise when sitting on hard floor (pain in perineum). Baseline Function- Other Walked 6 days per week, video ex 5x/week Current Functional Impairments (Reported) Functional Limitations- ADL's Hinders her ability to travel, pt must know where bathrooms are located. Functional Limitations- Recreation/ Less pain sitting ground (now Hobbies sits on carpet and mat) Functional Limitations- Other Bending over reaching for ground, sometimes pain in perineum. Personal Factors Other Personal Factors That May Effect Osteopenia Therapy/Recovery PT-OP-C Subjective Start: 10/25/20 18:23 Freq: Status: Active Protocol: Document 12/14/20 14:24 LRN (Rec: 12/14/20 15:06 LRN [id number]) OP-PT Subjective Patient Comments Patient Comments Better at being able to exhale on exertion. PT-OP-I Pelvic Floor Start: 10/25/20 18:23 Freq: Status: Active Protocol: Document 10/26/20 13:34 LRN (Rec: 10/26/20 18:35 LRN [id number]) Pelvic Floor Assessment Urine Pelvic Floor Surgery No Urinary Symptoms Prolapse,Falling Out Feeling/ Heavy,Pain Other Urinary Symptoms No urinary leakage Voiding Frequency 6-8 times a day Nocturia 2x Prolapse Cystocele Grade 4 Prolapse Comments Once bladder pushed back into vaginal canal, pt was able to pull the bladder up and in. Perineal Descent Resting Present Bearing Present Contraction Ability Voluntary Contraction Weak Manual Muscle Testing Left 0 Manual Muscle Testing Right 1 Manual Muscle Testing Anterior 1 Manual Muscle Testing Posterior 2 Muscle Endurance (Seconds) 3 Comments Pelvic Floor Comments Tissues dry, Redness at vaginal opening from 4-8 of the PF Clock without pain. PT-OP-J Posture/Palpation/Skin Start: 10/25/20 18:23 Freq: Status: Active Protocol: Document 10/26/20 13:34 LRN (Rec: 10/26/20 14:31 LRN [id number]) Posture Evaluation Comments Posture Comments Standing: Slight anterior tilt of pelvis, low gluteal muscle tone on right, slight forward head, L calcaneal EV. Palpation Assessment Location L lower back Palpation Location Lumbar paraspinals Palpation Findings Soft Tissue Tightness PT-OP-K Range of Motion Start: 10/25/20 18:23 Freq: Status: Active Protocol: Document 10/26/20 13:34 LRN (Rec: 10/26/20 14:31 LRN [id number]) Lumbar Spine Range of Motion Lumbar Spine Active Degrees Testing Position Standing Flexion 70 Extension 25 Lateral Flexion Left 5 Lateral Flexion Right 10 ROM Limitations Soft Tissue Tightness Hip Goniometric Range of Motion Hip Right Passive Testing Position Supine Straight Leg Raise 70 Abduction 30 Internal Rotation 40 External Rotation 50 Left Passive Testing Position Supine Straight Leg Raise 75 Abduction 25 Internal Rotation 45 External Rotation 55 PT-OP-M Strength Start: 10/25/20 18:23 Freq: Status: Active Protocol: Document 10/26/20 13:34 LRN (Rec: 10/26/20 14:31 LRN [id number]) Hip Strength Hip Manual Muscle Testing Right Flexion (L2) 5 Normal Extension (S1) 5 Normal Abduction 5 Normal Adduction 5 Normal External Rotation 5 Normal Internal Rotation 5 Normal Left Flexion (L2) 5 Normal Extension (S1) 5 Normal Abduction 5 Normal Adduction 5 Normal External Rotation 5 Normal Internal Rotation 5 Normal PT-OP-Q Treatments Start: 10/25/20 18:23 Freq: Status: Active Protocol: Document 12/14/20 14:24 LRN (Rec: 12/14/20 15:06 LRN [id number]) Therapeutic Exercises Supine Exercises Pelvic Clock Supine Exercise Name Pelvic Clock Side bilateral Reps/Minutes 4' Standing Exercises Lunge Squat Standing Exercise Name Lunge squat 2/PF/Proper breathing Side bilateral Reps/Minutes 3' training Calisthenic type ex Standing Exercise Name Calisthenic type ex w/3# hand wgt (FB>Shldr press; Hip AB> opp shdr flex) Side bilateral Reps/Minutes 8' Wall push ups Standing Exercise Name Wall push ups w/PF/proper breathing Reps/Minutes 3' PF w/hamstring stretch Standing Exercise Name PF w/Hamstring stretch Review Reps/Minutes 1' Other Exercises Sandra Pose Other Exercise Name Sandra Pose Reps/Minutes 2' Rock Backs Other Exercise Name Rock Backs Side bilateral Reps/Minutes 5' Wag Tail Other Exercise Name Wag Tail Reps/Minutes 5' Hands/knees Other Exercise Name Cat/Cow Side bilateral Reps/Minutes 3' Self-Care/Home Management Treatment Education Patient Education Home Exercise Program Other Education Discussed use of estrogen cream for PF, pt open to trying; therefore pt is to discuss with the primary care physician. Pt educated in proper breathing to decrease stress on bladder to minimize cystocele drop and practiced during her home exercises and each exercise performed today. Activities Self-Care/Home Management Activities Pt issued & reviewed HEP: Pelvic Clock, Active Hamstring stretch, Child's pose, Cat/ Camel w/writting reminder for Wag the Tail QL stretch, & Rock Back. PT-OP-T Assessment and Plan Start: 10/25/20 18:23 Freq: Status: Active Protocol: Document 12/14/20 14:24 LRN (Rec: 12/14/20 15:06 LRN [id number]) Physical Therapy Assessment Goals Four Impairment Pt lacks knowledge of proper transfers and PF care with exercise. Short Term Goal (STG) Pt will be educated in proper transfer techniques using proper breathing techniques and pt will be educated in best possible PF care with her in home exercise routines. (12/14/20: Pt educated in proper transfer techniques using proper breathing techniques and reviewed her current HEP that she could remember for teaching proper breathing with exercise) STG Duration 11/09/20 (12/14/20: MET GOAL) Three Impairment Decreased PF strength ( Posterior 3/5, anterior & left 0/5, right 1/5) Short Term Goal (STG) Improve PF strength so that the bladder will not extend beyond the plane of the Labia Majora/Minora. STG Duration 11/23/20 Snf Goal (LTG) Increase PF strength to no less than 2/5 with the pt able to present with a stage 3 prolapse in standing. LTG Duration 01/24/21 Two Impairment Stage 4 Cystocele (complete eversion of the total vaginal length) Short Term Goal (STG) Decrease cystocele to stage 3- 4 STG Duration 11/23/20 (12/07/20: No change) Snf Goal (LTG) Decrease cystocele to stage 3 in order to prevent the pt from having to have PF surgery . LTG Duration 01/24/21 One Impairment Pt lacks appropriate self care HEP Short Term Goal (STG) Pt will be independent with a self care HEP to include PF strengthening, hip mobility exercises and core strengthening. (12/14/20: Pt has initial PF and core strengthening exercises. STG Duration 11/23/20 (12/14/20: Progressing) Progress Towards Goals Progress Comments Goal #4 MET. Assessment Summary Assessment Pt was receptive to use of estrogen cream to improve PF health. She now has a better understanding of proper breathing with her home exercise routine. Needs hip mobility stretches for HEP (R> L for ER, AB L>R, and mildly with hamstrings. Physical Therapy Plan Frequency and Duration Frequency of Treatment 1x/Week Plan of Care Start Date 10/26/20 Plan of Care End Date 01/24/21 Other Referrals/Consults Referrals/Consults Recommended Estrogen cream for PF/vaginal tissues (Estrodial). Next Visit Focus/Plan Next Note Type Discharge Summary Next Visit Plan Discuss DC or continuation in 3-4 weeks to recheck prolapse, tissue health, and PF strength, otherwise pt may choose to DC to independent HEP. Review: cat/cow/Wag tail, Rock Backs & Child's Pose and PF strengthening in standing hamstring stretch position. Check abdominal excursion with deep breathing. Check core strength, progress LE roll in/out ex with deep breathing on pilow/wedge and if pt has TBall at home add: PF clocks on T-Ball.. Discuss use of E-Stim for strengthening. DC or in 3-4 weeks recheck.
--- NOTE | 2020-12-21 17:05 | PT.OTN ---
Current Diagnoses Stiffness of unspecified hip, not elsewhere classified (12/21/20) Pelvic muscle wasting (12/21/20) Postmenopausal atrophic vaginitis (12/21/20) Physical Therapy Treatment Note PT-OP-A Visit Information Start: 10/25/20 18:23 Freq: Status: Active Protocol: Document 12/21/20 14:25 LRN (Rec: 12/21/20 15:12 LRN [id number]) Out-Patient Physical Therapy Visit Information Visit Information Visit Type Treatment Note Visit Start Time 14:25 Visit Stop Time 15:10 Total Visit Minutes 45 Visit Number 7 Evaluation Information Evaluation Date 10/26/20 Precautions Precautions Osteopenia Arthritis PT-OP-B Current Condition Start: 10/25/20 18:23 Freq: Status: Active Protocol: Document 10/26/20 13:34 LRN (Rec: 10/26/20 14:31 LRN [id number]) Current Condition History of Current Condition Onset Date 6-7 yrs ago. Current Complaints Bulge in perineum & loss of sleep-wakes 2x @ night. History of Current Condition States she has known she has had an issue for 6-7 yrs, during her wellness exam she was given a choice to try PT before surgery or a pessary. States she has done a pessary and found it painful; therefore wasn't certain if she wanted to try a pessary again and decided to try PT rather than surgery during the Pandemic time. Now feels a weight as a bulge in perineum. Does exercises at home (ex videos hasfit). Prior Treatments and Tests 2 yrs ago: Pessary for <24 hrs, was found to be too painful. Treatment Goals Patient/Caregiver Goals Pt goal is to prevent having to have surgery or to learn if she needs to have surgery before 81 yrs old. Prior Functional Status Baseline Function- ADL's Independent Baseline Function- Mobility Independent Baseline Function- Recreation/Hobbies Exercised in gym. Bladder pain with exercise when sitting on hard floor (pain in perineum). Baseline Function- Other Walked 6 days per week, video ex 5x/week Current Functional Impairments (Reported) Functional Limitations- ADL's Hinders her ability to travel, pt must know where bathrooms are located. Functional Limitations- Recreation/ Less pain sitting ground (now Hobbies sits on carpet and mat) Functional Limitations- Other Bending over reaching for ground, sometimes pain in perineum. Personal Factors Other Personal Factors That May Effect Osteopenia Therapy/Recovery PT-OP-C Subjective Start: 10/25/20 18:23 Freq: Status: Active Protocol: Document 12/21/20 14:25 LRN (Rec: 12/21/20 15:12 LRN [id number]) OP-PT Subjective Patient Comments Patient Comments Pt states she has great information and is ready for discharge. She plans on continuing to work on strengthening her PF. PT-OP-I Pelvic Floor Start: 10/25/20 18:23 Freq: Status: Active Protocol: Document 10/26/20 13:34 LRN (Rec: 10/26/20 18:35 LRN [id number]) Pelvic Floor Assessment Urine Pelvic Floor Surgery No Urinary Symptoms Prolapse,Falling Out Feeling/ Heavy,Pain Other Urinary Symptoms No urinary leakage Voiding Frequency 6-8 times a day Nocturia 2x Prolapse Cystocele Grade 4 Prolapse Comments Once bladder pushed back into vaginal canal, pt was able to pull the bladder up and in. Perineal Descent Resting Present Bearing Present Contraction Ability Voluntary Contraction Weak Manual Muscle Testing Left 0 Manual Muscle Testing Right 1 Manual Muscle Testing Anterior 1 Manual Muscle Testing Posterior 2 Muscle Endurance (Seconds) 3 Comments Pelvic Floor Comments Tissues dry, Redness at vaginal opening from 4-8 of the PF Clock without pain. PT-OP-J Posture/Palpation/Skin Start: 10/25/20 18:23 Freq: Status: Active Protocol: Document 10/26/20 13:34 LRN (Rec: 10/26/20 14:31 LRN [id number]) Posture Evaluation Comments Posture Comments Standing: Slight anterior tilt of pelvis, low gluteal muscle tone on right, slight forward head, L calcaneal EV. Palpation Assessment Location L lower back Palpation Location Lumbar paraspinals Palpation Findings Soft Tissue Tightness PT-OP-K Range of Motion Start: 10/25/20 18:23 Freq: Status: Active Protocol: Document 10/26/20 13:34 LRN (Rec: 10/26/20 14:31 LRN [id number]) Lumbar Spine Range of Motion Lumbar Spine Active Degrees Testing Position Standing Flexion 70 Extension 25 Lateral Flexion Left 5 Lateral Flexion Right 10 ROM Limitations Soft Tissue Tightness Hip Goniometric Range of Motion Hip Right Passive Testing Position Supine Straight Leg Raise 70 Abduction 30 Internal Rotation 40 External Rotation 50 Left Passive Testing Position Supine Straight Leg Raise 75 Abduction 25 Internal Rotation 45 External Rotation 55 PT-OP-M Strength Start: 10/25/20 18:23 Freq: Status: Active Protocol: Document 10/26/20 13:34 LRN (Rec: 10/26/20 14:31 LRN [id number]) Hip Strength Hip Manual Muscle Testing Right Flexion (L2) 5 Normal Extension (S1) 5 Normal Abduction 5 Normal Adduction 5 Normal External Rotation 5 Normal Internal Rotation 5 Normal Left Flexion (L2) 5 Normal Extension (S1) 5 Normal Abduction 5 Normal Adduction 5 Normal External Rotation 5 Normal Internal Rotation 5 Normal PT-OP-Q Treatments Start: 10/25/20 18:23 Freq: Status: Active Protocol: Document 12/21/20 14:25 LRN (Rec: 12/21/20 15:12 LRN [id number]) Therapeutic Exercises Supine Exercises Bridge w/PF/LE roll in&out Supine Exercise Name Bridge off of folded pillow w/ PF/hip AB & AD Side bilateral Resistance Lev 2 TB Reps/Minutes 4' PF w/LE roll in/out w/deep breathing Supine Exercise Name Pillow/PF w/LE roll in/out w/ deep breathing/Ball/TBand Equipment Used pillow Reps/Minutes 8' Deep Breathing Supine Exercise Name Deep Breathing Reps/Minutes 2' Sitting Exercises PF Clock Sitting Exercise Name PF Clock Reps/Minutes 3 reps each position. Other Exercises Sandra Pose Other Exercise Name Sandra Pose/deep breathing Reps/Minutes 2' Rock Backs Other Exercise Name Rock Backs/deep breathing Side bilateral Reps/Minutes 5' Wag Tail Other Exercise Name Wag Tail/deep breathing Reps/Minutes 5' Hands/knees Other Exercise Name Cat/Cow/deep breathing Side bilateral Reps/Minutes 3' Self-Care/Home Management Treatment Education Other Education Discussed at length possible options of care to improve her pelvic floor health. Discussed use of over the counter gels that the pt is currently using. Discussed pt to talk with referring physician regarding use of an estrogen cream to improve tissue health and once improved a consult to a loop puller or urologist for another trial of pessary or discussion of other options. Activities Self-Care/Home Management Activities Reviewed self care HEP. PT-OP-T Assessment and Plan Start: 10/25/20 18:23 Freq: Status: Active Protocol: Document 12/21/20 14:25 LRN (Rec: 12/21/20 15:12 LRN [id number]) Physical Therapy Assessment Goals Four Impairment Pt lacks knowledge of proper transfers and PF care with exercise. Short Term Goal (STG) Pt will be educated in proper transfer techniques using proper breathing techniques and pt will be educated in best possible PF care with her in home exercise routines. (12/14/20: Pt educated in proper transfer techniques using proper breathing techniques and reviewed her current HEP that she could remember for teaching proper breathing with exercise) STG Duration 11/09/20 (12/14/20: MET GOAL) Three Impairment Decreased PF strength ( Posterior 3/5, anterior & left 0/5, right 1/5) Short Term Goal (STG) )Improve PF strength so that the bladder will not extend beyond the plane of the Labia Majora/Minora. STG Duration 11/23/20 (12/07/20: NOT ACHIEVED GOAL, no change) Nursing Home Goal (LTG) Increase PF strength to no less than 2/5 with the pt able to present with a stage 3 prolapse in standing. LTG Duration 01/24/21 (12/07/20: NOT ACHIEVED GOAL, no change) Two Impairment Stage 4 Cystocele (complete eversion of the total vaginal length) Short Term Goal (STG) Decrease cystocele to stage 3- 4 STG Duration 11/23/20 (12/07/20: No change) Nursing Home Goal (LTG) Decrease cystocele to stage 3 in order to prevent the pt from having to have PF surgery . LTG Duration 01/24/21 (12/07/20: No change ) One Impairment Pt lacks appropriate self care HEP Short Term Goal (STG) MPt will be independent with a self care HEP to include PF strengthening, hip mobility exercises and core strengthening. (12/21/20: Pt has PF/core strengthening exercises, and hip/trunk stretches). STG Duration 11/23/20 (12/21/20: MET GOAL for current status) Assessment Summary Assessment Pt is receptive to use of estrogen cream to improve her PF health, but tends to lean towards more natural products to start. She demonstrates proper deep breathing and is more aware of proper breathwork with daily activities to decrease downward pressure on her bladder. She appears to have a good understanding of the focus of her HEP and is planning on seeking further advice regarding her options of care. If the pt is able to improve her tissue health she would be appropriate to return to therapy for strengthening and possible use of E-Stim to further strengthen. The pt feels she is ready to be placed on her HEP. Physical Therapy Plan Discharge Physical Therapy Discharge Reasons Plateau in Progress Discharge Comments See assessment above. Thank you for your referral.
== END 2021-01-01 12:42 ==
LOC: PHYS 14:15
PROVIDERS: Family Provider Nurse Practitioner; PCP Nurse Practitioner; Referring Provider Nurse Practitioner; Visit Provider Nurse Practitioner
DX: N95.2 Postmenopausal atrophic vaginitis (principal); N81.84 Pelvic muscle wasting; M25.659 Stiffness of unspecified hip, not elsewhere classified
CPT/HCPCS: 97110; 97162; 97530; 97535

== ENCOUNTER → 2020-12-22 15:43 | Outpatient (CLI) | payer MEDICARE, OTHER, SELFPAY ==
[2020-12-22] MEDS: COVID-19 VACC #1, MRNA(MOD) 100 MCG/0.5 ML VIAL IM (15:52)
== END ==
PROVIDERS: Family Provider Nurse Practitioner; PCP Nurse Practitioner; Visit Provider Internal Medicine
DX: Z23 Encounter for immunization (principal)
CPT/HCPCS: 0011A; 91301

== ENCOUNTER → 2021-01-19 16:02 | Outpatient (CLI) | payer MEDICARE, SELFPAY ==
[2021-01-19] MEDS: COVID-19 VACC #2, MRNA(MOD) 100 MCG/0.5 ML VIAL IM (16:07)
== END ==
PROVIDERS: Family Provider Nurse Practitioner; PCP Nurse Practitioner; Visit Provider Internal Medicine
DX: Z23 Encounter for immunization (principal)
CPT/HCPCS: 0012A; 91301

== ENCOUNTER → 2021-09-14 10:56 | Outpatient (CLI) | payer MEDICARE, OTHER, SELFPAY ==
[2021-09-14 13:11] LABS: Alanine Aminotransferase 20 IU/L (<35); Albumin Globulin Ratio 1.4 (1.0-2.8); Alkaline Phosphatase 62 U/L (38-126); Aspartate Aminotransferase 31 IU/L (14-36); BUN Creatinine Ratio 28.2 (6-22); Bilirubin Total 0.5 mg/dL (0.2-1.3); Blood Urea Nitrogen 22 mg/dL (7-17); Calcium 9.7 mg/dL (8.4-10.2); Carbon Dioxide 33 mmol/L (22-32); Chloride 102 mmol/L (98-107); Estimated Glomerular Filt Rate > 60.0 mL/min (>60); Globulin 2.9 g/dL (1.7-4.1); Glucose 88 mg/dL (80-110); HEMOLYSIS < 15 (0-50); Potassium 4.4 mmol/L (3.4-5.1); Sodium 140 mmol/L (137-145); Total Protein 6.9 g/dL (6.3-8.2)
== END ==
PROVIDERS: Family Provider Nurse Practitioner; PCP Nurse Practitioner; Referring Provider Nurse Practitioner; Visit Provider Nurse Practitioner
DX: M85.80 Other specified disorders of bone density and structure, unspecified site (principal); R79.89 Other specified abnormal findings of blood chemistry; Z13.1 Encounter for screening for diabetes mellitus; Z79.899 Other long term (current) drug therapy
CPT/HCPCS: 36415; 80053

== ENCOUNTER → 2021-09-20 11:22 | Outpatient (CLI) | payer MEDICARE, OTHER, SELFPAY ==
--- NOTE | 2021-09-20 | DI.MG.S_ITS ---
BILATERAL DIGITAL SCREENING MAMMOGRAM 3D/2D WITH CAD: 09/20/2021 CLINICAL: Routine screening. Family history of breast cancer. Comparison is made to exams dated: 09/11/2020 mammogram, 08/15/2019 mammogram, and 02/07/2019 mammogram - [facility]. The tissue of both breasts is heterogeneously dense. This may lower the sensitivity of mammography. Current study was also evaluated with a Computer Aided Detection (CAD) system. There is a new irregular high density asymmetry in the left breast at 7 o'clock middle depth. No other significant masses, calcifications, or other findings are seen in either breast. IMPRESSION: INCOMPLETE: NEEDS ADDITIONAL IMAGING EVALUATION The new irregular high density asymmetry in the left breast is indeterminate. Additional views with possible ultrasound are recommended. This exam was interpreted at Station ID: [id number]. NOTE: For mammograms, a report in lay terms will be sent to the patient. Approximately 15% of breast malignancies will not be visualized mammographically. In the management of a palpable breast mass, a negative mammogram must not discourage biopsy of a clinically suspicious lesion. Electronically Signed By: Rosalina valladares/shahram:09/20/2021 12:28:53 copy to: JAMES CANSECO letter sent: Additional Imaging Needed ACR BI-RADS Category 0: Incomplete [id number]
== END ==
PROVIDERS: Family Provider Nurse Practitioner; PCP Nurse Practitioner; Referring Provider Nurse Practitioner; Visit Provider Nurse Practitioner
DX: Z12.31 Encounter for screening mammogram for malignant neoplasm of breast (principal); Z80.3 Family history of malignant neoplasm of breast; M85.852 Other specified disorders of bone density and structure, left thigh; Z78.0 Asymptomatic menopausal state; T07.XXXA Unspecified multiple injuries, initial encounter; Z82.62 Family history of osteoporosis
CPT/HCPCS: 77063; 77067; 77080

== ENCOUNTER → 2021-10-13 14:10 | Outpatient (CLI) | payer MEDICARE, OTHER, SELFPAY ==
--- NOTE | 2021-10-13 | DI.MG.S_ITS ---
UNILATERAL LEFT DIGITAL DIAGNOSTIC MAMMOGRAM 3D/2D WITH ADDITIONAL VIEWS: 10/13/2021 CLINICAL: Additional evaluation requested from prior study. Comparison is made to exams dated: 09/20/2021 mammogram, 09/11/2020 mammogram, 08/15/2019 mammogram, 02/07/2019 mammogram, and 08/09/2018 mammogram - [facility]. The tissue of left breast is heterogeneously dense. This may lower the sensitivity of mammography. There is a new 1 cm irregular equal density mass with a spiculated margin in the left breast at 8 o'clock middle depth. This is seen in additional views. No other significant masses or calcifications are seen in the breast. IMPRESSION: INCOMPLETE: NEEDS ADDITIONAL IMAGING EVALUATION The new 1 cm irregular equal density mass in the left breast is indeterminate. Targeted ultrasound is recommended for further evaluation, which will be performed immediately following this exam. This exam was interpreted at Station ID: [id number]. NOTE: For mammograms, a report in lay terms will be sent to the patient. Approximately 15% of breast malignancies will not be visualized mammographically. In the management of a palpable breast mass, a negative mammogram must not discourage biopsy of a clinically suspicious lesion. Electronically Signed By: Pablo ansari/shahram:10/13/2021 16:41:16 copy to: JAMES RECIO BI-RADS Category 0: Incomplete [id number]
--- NOTE | 2021-10-13 14:12 | DI.US.S_ITS ---
LIMITED ULTRASOUND OF LEFT BREAST AND AXILLA: 10/13/2021 CLINICAL: Patient returns today to evaluate a focal asymmetry in the left breast. Comparison is made to exams dated: 10/13/2021 mammogram, 09/20/2021 mammogram, 09/11/2020 mammogram, 08/15/2019 mammogram, 02/07/2019 ultrasound, and 02/07/2019 mammogram - [facility]. Color flow ultrasound of the left breast 8 o'clock, and axilla regions was performed. Nettles scale images of the real-time examination were reviewed. There is a 1 cm x 0.9 cm x 0.8 cm irregular mass with an angular margin in the left breast at 8 o'clock posterior depth 3 cm from the nipple. This irregular mass is hypoechoic with an echogenic boundary. This correlates with mammography findings. There are related micro calcifications. Color flow imaging demonstrates that there is no increase in vascularity. No significant abnormalities were seen sonographically in the left axilla. IMPRESSION: HIGHLY SUGGESTIVE OF MALIGNANCY The 1 cm x 0.9 cm x 0.8 cm irregular mass in the left breast is highly suggestive of malignancy. An ultrasound guided biopsy is recommended. The findings and recommendations were discussed with the patient by the onsite radiologist, Dr. Vazquez, at the time of the exam. This exam was interpreted at Station ID: [id number]. Electronically Signed By: Pablo ansari/shahram:10/13/2021 16:44:43 copy to: JAMES CANSECO letter sent: Biopsy Required Ultrasound BI-RADS: 5 Highly suggestive of malignancy
== END ==
PROVIDERS: Family Provider Nurse Practitioner; PCP Nurse Practitioner; Referring Provider Nurse Practitioner; Visit Provider Nurse Practitioner
DX: R92.8 Other abnormal and inconclusive findings on diagnostic imaging of breast (principal); N63.24 Unspecified lump in the left breast, lower inner quadrant
CPT/HCPCS: 76642; 77065; G0279

== ENCOUNTER → 2021-10-26 09:17 | Outpatient (CLI) | payer MEDICARE, OTHER, SELFPAY ==
--- NOTE | 2021-10-26 | PATH_ITS ---
[facility] Accession Number: [id number] . 01 Material submitted: . breast - LEFT BREAST MASS . 02 Diagnosis: Left Breast Mass, Needle Core Biosy: Invasive carcinoma of the breast with the following features: Procedure: Needle biopsy. Laterality: Left. . Histologic type: Invasive ductal with apocrine features (positive for E-Cadherin immunostain). Histologic grade: Intermediate. Glandular differentiation: 3/3. Nuclear pleomorphism: 2/3. Mitotic rate: 1/3. Overall grade: Grade 2 (score 6/9). Tumor size: 6 mm largest dimension in one fragment. Ductal carcinoma in situ: Not identified. Lymphovascular invasion: Not identified. Microcalcifications: Not identified. . Special Studies: CAP BREAST BIOMARKER REPORTING TEMPLATE: . Estrogen Receptor (ER) Status: Negative, less than 1%. Primary antibody: SP1 The internal control stained appropriately. Progesterone Receptor (PgR) Status: Negative, less than 1% Primary antibody: 1E2 The internal control stained appropriately. HER2 (by immunohistochemistry): Equivocal at 2+. Primary antibody: 4B5 Percent of cells with intense membrane staining: less than 10%. HER2 (ERBB2) (by in situ hybridization): Pending; results will be reported as an addendum. . Cold Ischemia and Fixation Times: Meets requirements in the latest version of the ASCO/CAP guidelines. Testing performed on Block Number: A1. . TECHNICAL NOTE: The scoring criteria for breast biomarkers by immunohistochemistry is based on the current ASCO/CAP guidelines (Nicki et al, Arch Pathol Lab Med 2010: 134(6): 907-922 / Domi NAGEL et al, Arch Pathol Lab Med 2014: 138(2):241-256). Deparaffinized sections of formalin fixed tissue (along with appropriate positive controls) are incubated with the above antibody(s). Using the automated Alvo stainer, tissue is incubated with the designated antibody* which is then localized by a non-biotin, dual polymer detection system. The external controls are reviewed for appropriate reactivity and found to be adequate. Results on the target cell population are indicated above. These tests have not been validated on decalcified tissue. * This test was developed and its performance characteristics determined by [facility]. It has not been cleared or approved by the U.S. Food and Drug Administration. The FDA has determined that such clearance or approval is not necessary. This test is used for clinical purposes. It should not be regarded as investigational or for research. MRV 10/28/2021 1751 Local . 02 Comment: As part of routine compliance quality performance analyst, this case was also reviewed by Dr. Duvall, who agrees with the interpretation. . Results discussed with Dr. Clay on 10-28-21 at approximately 10:35 a.m. . 02 Electronically signed: . Marion Goldman MD, Pathologist NPI- [id number] . 01 Gross description: . Received one formalin-filled container labeled with the patient's name and designated left breast mass. The specimen is received with plastic filter in container, sample loose in container, and consists of three fragments of yellow weiner tissue and blood, which range in size from 0.7 x 0.3 x 0.2 cm to 1.5 x 0.2 x 0.2 cm. All fragments are totally submitted in one cassette. Possible collection date and time per requisition, 10/26/2021 at 10:21. Total fixation time approximately 16 hours. ([facility]:[id number]) /[facility] 10/26/2021 1845 Local . 02 Microscopic: . Immunohistochemical stains were performed to further evaluate the cells of interest. The control stains showed appropriate reactivity. . RESULTS: MARIBEL: Positive. GCDFP-15: Positive. P63: Absent around region of interest. Myosin: Absent around region of interest. LIANA-3: Faintly positive. . The neoplasm is immunopositive for MARIBEL, GCDFP-15, and LIANA-3, consistent with an epithelial neoplasm of breast origin. The neoplasm is immunonegative for S100, which mitigates against a granular cell tumor. The absence of p63 and myosin in the region of interest mitigates against the presence of in-situ carcinoma. . * This test was developed and its performance characteristics determined by [facility]. It has not been cleared or approved by the U.S. Food and Drug Administration. The FDA has determined that such clearance or approval is not necessary. This test is used for clinical purposes. It should not be regarded as investigational or for research. . 02 Pathologist provided ICD-10: N63.20, C50.912 . 02 CPT . 297869, 475850, 191105, 696878, E50019, X71502 Performed at: 01 [facility] [address] [place] [address] [id number] MD Dax Hyatt MD Phone: [phone] Performed at: 02 [facility] [address] [place] [address] [id number] MD Hortencia Duvall MD Phone: [phone]
--- NOTE | 2021-10-26 | DI.MG.S_ITS ---
UNILATERAL LEFT DIGITAL DIAGNOSTIC MAMMOGRAM 3D/2D POST-NEEDLE BIOPSY: 10/26/2021 CLINICAL: Post clip placement. Left breast lump. Comparison is made to exams dated: 10/13/2021 mammogram, 09/20/2021 mammogram, and 09/11/2020 mammogram - [facility]. The tissue of left breast is heterogeneously dense. This may lower the sensitivity of mammography. There is a marker clip in the appropriate position in the left breast at 8 o'clock posterior depth. This marker clip placement is at the biopsy site. IMPRESSION: POST PROCEDURE MAMMOGRAM FOR MARKER PLACEMENT There was a successful marker clip placement in the left breast posterior depth. This exam was interpreted at Station ID: [id number]. NOTE: For mammograms, a report in lay terms will be sent to the patient. Approximately 15% of breast malignancies will not be visualized mammographically. In the management of a palpable breast mass, a negative mammogram must not discourage biopsy of a clinically suspicious lesion. Electronically Signed By: Liliana murdock/shahram:10/26/2021 10:31:44 copy to: JAMES CANSECO ACR BI-RADS Category Post-procedure mammogram for marker placement
--- NOTE | 2021-10-26 09:18 | DI.US.S_ITS ---
PROCEDURE: US BX BREAST PERC W VAC DEVICE COMPARISON: None. INDICATIONS: LEFT BREAST MASS FINDINGS: IMPRESSION: Dictated by: Liliana Galo MD, PhD on 10/26/2021 at 11:58 Approved by: Liliana Galo MD, PhD on 10/26/2021 at 11:58
--- NOTE | 2021-10-26 09:25 | DI.US.S_ITS ---
Procedure: US bx breast perc w vac device ULTRASOUND GUIDED BIOPSY LEFT BREAST USING VACUUM DEVICE WITH MARKING DEVICE INSERTED AND POST DIGITAL MAMMOGRAPHIC IMAGIN10/26/2021 CLINICAL: Left breast mass. PATIENT CONSENT: Risks (minor bleeding, infection, vasovagal reaction and repeat procedure), benefits and alternatives were explained to the patient and written informed consent was obtained. Correlation is made to exams dated: 10/13/2021 ultrasound, 10/13/2021 mammogram, 09/20/2021 mammogram, 09/11/2020 mammogram, 08/15/2019 mammogram, and 02/07/2019 [facility]. An ultrasound guided biopsy using real-time ultrasound was performed for the irregular shaped mass located in the left breast at 8 o'clock posterior depth. The skin was prepped in the usual manner. Local anesthetic was administered to the access site. A skin eva was made in the breast. The abnormality was approached from the lateral aspect. A 13 gauge biopsy needle was placed adjacent to the abnormality under ultrasound guidance. Once the needle was documented to be in the correct location, three specimens were obtained using the Mammotome biopsy system. A Vision biopsy clip was inserted into the biopsy cavity. Post procedure digital mammographic imaging demonstrates the location device at the targeted area. The specimens were sent to the laboratory for pathological analysis. IMPRESSION: ULTRASOUND GUIDED BIOPSY MALIGNANT Ultrasound guided biopsy of the mass in the left breast at 8 o'clock posterior depth was successful. Pathology indicates malignant invasive ductal carcinoma (ID). Pathology results are concordant with imaging findings. A surgical/oncologic consultation is recommended. This exam was interpreted at Station ID: [id number]. Liliana Jalloh M.D. [facility] [place][note 2],aty/:10/29/2021 19:20:04 Continued Report - Page 2 of 2 Patient Name: COLT ANDREW date: 1950 Sex: F Attending Physician: Obed Indications: Date: 10/26/2021 10:24 At the request of: MELVIN SCHNEIDER Procedure: US bx breast perc w vac device copy to: JAMES CANSECO
== END ==
PROVIDERS: Family Provider Nurse Practitioner; PCP Nurse Practitioner; Referring Provider Nurse Practitioner; Visit Provider Nurse Practitioner
DX: C50.312 Malignant neoplasm of lower-inner quadrant of left female breast (principal); Z17.1 Estrogen receptor negative status [ER-]
CPT/HCPCS: 19083; 77065

== ENCOUNTER → 2021-11-11 13:41 | Outpatient (CLI) | payer MEDICARE, OTHER, SELFPAY ==
--- NOTE | 2021-11-11 13:43 | DI.NM.S_ITS ---
PROCEDURE: FL MUGA RADIOPHARMACEUTICAL: 25.8 mCi Tc-99m labeled autologous red cells IV. INDICATIONS: Breast cancer. Pre-chemotherapy evaluation. TECHNIQUE: After intravenous administration of autologous labeled WBC, KOLTON views of the chest were obtained. A region of interest was drawn around the left ventricle to calculate left ventricle ejection fraction. COMPARISON: [facility], , US BX BREAST PERC W VAC DEVICE, 10/26/2021, 9:25. [facility], BREAST LT LIMITED, 10/13/2021, 15:28. [facility], , DIAGNOSTIC MAMMO UNILAT LT2D, 10/26/2021, 10:28. FINDINGS: The heart and great vessels are of normal size and configuration. The left ventricle contracts normally, with left ventricle ejection fraction of 67.6%. Normal ejection fractions for this study are above 55%. A drop from baseline ejection fraction of greater than 10 percentage points or to below 45% on follow-up studies may be considered significant. IMPRESSION: Normal left ventricular ejection fraction. Dictated by: Jorge Saucedo M.D. on 11/11/2021 at 15:18 Approved by: Jorge Saucedo M.D. on 11/11/2021 at 15:20
== END ==
PROVIDERS: Family Provider Nurse Practitioner; PCP Nurse Practitioner; Referring Provider Internal Medicine Hematology & Oncology; Visit Provider Internal Medicine Hematology & Oncology
DX: C50.312 Malignant neoplasm of lower-inner quadrant of left female breast (principal); Z01.818 Encounter for other preprocedural examination
CPT/HCPCS: 78472; A9512; A9538

== ENCOUNTER → 2022-01-10 09:45 | Outpatient (CLI) | payer MEDICARE, OTHER, SELFPAY ==
[2022-01-10 10:24] LABS: COVID19 -Nasal RAPID Negative (Negative)
== END ==
PROVIDERS: Family Provider Nurse Practitioner; PCP Nurse Practitioner; Visit Provider Surgery
DX: Z01.812 Encounter for preprocedural laboratory examination (principal); Z20.822 Contact with and (suspected) exposure to COVID-19
CPT/HCPCS: 87635; C9803

== ENCOUNTER 2022-01-11 10:31 | Day surgery (SDC) | payer MEDICARE, OTHER, SELFPAY ==
[2022-01-10 14:29] VITALS: BMI 19.5
[2022-01-11 11:04] VITALS: BP 135/86; PULSE 85; RESP 16; TEMP 37.3; O2SAT 100
[2022-01-11] MEDS: LACTATED RINGERS 1,000 ML 100 ML IV (11:04)
[2022-01-11 11:07] VITALS: BMI 19.5
[2022-01-11] MEDS: CEFAZOLIN 2 GM/20 ML SYRINGE IV (12:12)
--- NOTE | 2022-01-11 12:12 | PM.HP.1 ---
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 She has never had an indwelling venous catheter. She has undergone a left lumpectomy with sentinel node biopsy with plan for adjuvant chemotherapy followed by radiation. Patient History Medical History Abnormal mammogram Abnormality of left breast on screening mammogram Allergic rhinitis (1979) Cataracts, bilateral (~01/2018) Change in bowel habits Chickenpox (1954) Depression with anxiety Fractures (2015) Infertility (1981) Kidney disease (1960) Left breast mass Malignant neoplasm of left breast Measles (1954) Mumps (1955) Osteopenia (2005) Rosacea (1990) Triple negative malignant neoplasm of breast Vaginal atrophy Surgical History History of biopsy (~11/2021) History of lumpectomy of left breast Hx of colonoscopy Hx of laparoscopy (1984) Hx of urethrotomy (10/1970) Family & Social History Family History Father Cancer Heart disease Hypertension Grandmother Stroke Sister Age: 76 Cancer Sister Age: 72 Hypertension Mother No problems noted. Social History: household members spouse Tobacco & Substance use: Smoking Status Never smoker alcohol intake current alcohol intake frequency holiday/special occasion Substance Use Type does not use Meds Home Medications and Allergies Home Medications Medication Instructions Recorded Confirmed Type calcium carbonate 600 mg calcium 1,500 mg PO BID 05/21/18 01/10/22 History (1,500 mg) tablet (Calcium) cholecalciferol (vitamin D3) 25 3,000 unit PO DAILY 05/21/18 01/10/22 History mcg (1,000 unit) capsule (Vitamin D3) turmeric (bulk) 95 % powder 500 mg MISCELLANEOUS BID 05/21/18 01/06/22 History (Curcumin) doxylamine succinate 25 mg tablet 25 mg PO BEDTIME PRN 04/04/19 01/06/22 History (Unisom (doxylamine)) alendronate 35 mg tablet 35 mg PO Q WEEK #12 tab 02/11/21 02/14/22 Rx Bone up 3 cap PO .HS 09/27/21 01/06/22 History ondansetron 4 mg disintegrating 4 mg PO Q6H #60 tab 11/25/21 01/06/22 Rx tablet acetaminophen 325 mg tablet 325 - 650 mg PO Q6H PRN 01/10/22 01/10/22 History carboxymethylcellulose sodium 0.5 1 drp EYE-BOTH PRN PRN 01/10/22 01/10/22 History % eye drops (Refresh Tears) melatonin 5 mg tablet 5 mg PO BEDTIME 01/10/22 01/10/22 History sertraline 25 mg tablet 50 mg PO QPM 01/10/22 History Allergies Allergy/AdvReac Type Severity Reaction Status Date / Time Sulfa (Sulfonamide Allergy Unknown Rash Verified 01/10/22 14:43 Antibiotics) [SULFA (SULFONAMIDE ANTIBIOTICS)] fluoxetine AdvReac Mild Verified 01/10/22 14:43 Exam Vital Signs (past 8 hours): - 01/11/22 11:04 Temperature 99.2 F Pulse Rate 85 Respiratory Rate 16 Blood Pressure 135/86 Pulse Oximetry 100 Oxygen Delivery Method Room Air Narrative Exam Narrative: GENERAL: Thin adult female in no apparent distress HEENT: No scleral icterus CV: Regular rate, no peripheral edema LUNGS: No increased work of breathing. Patient speaks in full sentences without oxygen support. 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 Technical details of the procedure were discussed with the patient. Operative risks including bleeding, infection, pneumothorax mechanical device failure were discussed. Her questions have been answered she is in agreement with this plan. Time Spent With Patient Critical Care time: I spent a total of [] minutes of critical care time on this patient's care today; this time is exclusive of procedural time.
--- NOTE | 2022-01-11 12:44 | SUR.OPER ---
Supine on padded OR bed, head on pillow, arms padded and tucked at sides, legs uncrossed, safety belt at thigh, tape over blanket over lower legs .
--- NOTE | 2022-01-11 12:46 | DI.RAD.S_ITS ---
PROCEDURE: XR CHEST 1V INDICATIONS: POST PORT A CATH PLACEMENT TECHNIQUE: One view of the chest was acquired. COMPARISON: None. FINDINGS: Surgical changes and devices: Right-sided Port-A-Cath tip in the upper SVC. No pneumothorax. Surgical clips noted in the left breast and left axilla. Lungs and pleura: Lungs are clear. No pleural effusions or pneumothorax. Mediastinum: Mediastinal contours appear normal. Heart size is normal. Bones and chest wall: No suspicious bony lesions. Overlying soft tissues appear unremarkable. Generalized decrease in osseous mineralization noted. IMPRESSION: Right-sided Port-A-Cath in place. Tip in the upper SVC without pneumothorax Approved by: Milo Hartley M.D. on 01/11/2022 at 13:29
[2022-01-11] MEDS: BUPIVACAINE 0.25% (PF) VIAL 30 ML INJ (12:52)
[2022-01-11] MEDS: HEPARIN 5,000 UNIT, SODIUM CHLORIDE 0.9% 50 ML IV (12:53)
[2022-01-11 13:06] VITALS: BP 124/72; PULSE 68; RESP 12; TEMP 36.1; O2SAT 96
[2022-01-11 13:11] VITALS: BP 125/69; PULSE 68; RESP 13; O2SAT 95
[2022-01-11 13:16] VITALS: BP 135/74; PULSE 62; RESP 13; O2SAT 97
[2022-01-11 13:21] VITALS: BP 135/78; PULSE 66; RESP 14; TEMP 36.1; O2SAT 96
--- NOTE | 2022-01-11 13:22 | PM.OP.1 ---
Operative Date/Time/Diagnoses Date of procedure: 01/11/22 Time of procedure: 13:22 Pre-op diagnosis: Breast cancer Post-op diagnosis: same Procedure & Clinicians Procedure: Port-A-Cath placement Same procedure as scheduled: Yes Indications: Triple negative breast cancer, venous insufficiency Surgeon: Antonio Combs Click Yes if Unassisted: No Anesthesia Type: General Operative Notes Findings: Tip of catheter lies within the SVC Specimen(s): none sent Estimated Blood Loss (mL): 10 Procedure in detail: Patient was brought to the operating room placed supine on table. Bilateral lower extremity compressive devices were applied. General anesthesia was induced and he was intubated with an LMA. She was then prepped and draped in usual sterile fashion. Time-out was performed ensure the correct patient procedure necessary equipment within the operating room. She received 2 g of Ancef prior to incision. Under ultrasound guidance the right internal jugular vein was accessed under direct visualization. The guidewire was then threaded through the needle. Its placement was then confirmed using fluoroscopy. The dilator was then placed over the guidewire. The catheter was then inserted through the sheath. Placement was again confirmed with fluoroscopy. A subcutaneous pocket was made in the right chest wall. The tunneler device was used to move the catheter from the neck to the chest pocket. The port was attached after it was primed with heparined saline. The port was tested to ensure that it flushed easily and had good blood return. The port was then secured to the underlying fascia using interupted Ethibond. Hemostasis was achieved. The wound was irrigated with sterile saline. The subcutaneous tissues were reapproximated with the 3 0 Vicryl and then skin closed with 4-0 Monocryl. The skin was sealed with Dermabond. Patient tolerated procedure well. The sponge and instrument count at the end operation was correct. Patient emerged from general anesthesia was extubated and taken to the postoperative care unit in stable condition Complications: none Post-operative Condition: stable Disposition: same day surgery
[2022-01-11 13:40] VITALS: BP 129/88; PULSE 71; RESP 14; O2SAT 98
== END 2022-01-11 13:45 | disposition home or self-care (01) ==
PROVIDERS: Family Provider Nurse Practitioner; PCP Nurse Practitioner; Referring Provider Surgery; Visit Provider Surgery
PROC: (CPT 36561; principal; 2022-01-11 12:15)
DX: C50.912 Malignant neoplasm of unspecified site of left female breast (principal)
CPT/HCPCS: 36561; 71045; 76000; 82962; J0690; J1644; J2405; J2704; J3010

== ENCOUNTER → 2022-06-30 11:26 | Outpatient (CLI) | payer MEDICARE, OTHER, SELFPAY ==
[2022-06-30 12:44] LABS: Appearance Urine UA SL CLOUDY; Bilirubin Urine UA NEGATIVE (NEGATIVE); Color Urine UA YELLOW; Glucose Urine UA TRACE g/dL (Negative); Ketones Urine UA NEGATIVE (NEGATIVE); Leukocyte Esterase Urine UA 3+ (NEGATIVE); Nitrite Urine UA NEGATIVE (Negative); Occult Blood Urine UA 3+ (Negative); Protein Urine UA 1+ (Negative); Specific Gravity Urine UA <=1.005 (1.000-1.035); Urobilinogen Urine UA 0.2 E.U./dL (0.2)
[2022-06-30 13:19] LABS: Bacteria Urine Moderate (10-30); Culture Indicated Urine Specimen Cultured; RBC Urine 10-30/HPF (0-5/HPF); Squamous Epithelial Cell Urine 1-5 /HPF (0-5/HPF); WBC Urine 10-30/HPF (0-5/HPF)
== END ==
PROVIDERS: Family Provider Nurse Practitioner; PCP Nurse Practitioner; Referring Provider Nurse Practitioner; Visit Provider Nurse Practitioner
DX: R30.0 Dysuria (principal)
CPT/HCPCS: 81001; 87086

== ENCOUNTER → 2022-08-12 13:42 | Outpatient (CLI) | payer MEDICARE, OTHER, SELFPAY ==
[2022-08-12 14:09] LABS: Appearance Urine UA CLEAR; Bilirubin Urine UA NEGATIVE (NEGATIVE); Color Urine UA YELLOW; Glucose Urine UA NEGATIVE (Negative); Ketones Urine UA NEGATIVE (NEGATIVE); Leukocyte Esterase Urine UA NEGATIVE (NEGATIVE); Nitrite Urine UA NEGATIVE (Negative); Occult Blood Urine UA NEGATIVE (Negative); Protein Urine UA NEGATIVE (Negative); Specific Gravity Urine UA <=1.005 (1.000-1.035); Urobilinogen Urine UA 0.2 E.U./dL (0.2)
[2022-08-12 14:37] LABS: Bacteria Urine Occasional (0-1); Culture Indicated Urine Cult Not Indicated; RBC Urine 0-1/HPF (0-5/HPF); Squamous Epithelial Cell Urine None Seen (0-5/HPF); WBC Urine None Seen (0-5/HPF)
== END ==
PROVIDERS: Family Provider Nurse Practitioner; PCP Nurse Practitioner; Referring Provider Nurse Practitioner; Visit Provider Nurse Practitioner
DX: N39.0 Urinary tract infection, site not specified (principal)
CPT/HCPCS: 81001

== ENCOUNTER → 2022-10-17 10:17 | Outpatient (CLI) | payer MEDICARE, OTHER, SELFPAY ==
--- NOTE | 2022-10-17 10:19 | DI.MG.S_ITS ---
BILATERAL DIGITAL DIAGNOSTIC MAMMOGRAM 3D/2D POST LUMPECTOMY: 10/17/2022 CLINICAL: Breast cancer. Comparison is made to exams dated: 10/13/2021 ultrasound, 10/13/2021 mammogram, 09/20/2021 mammogram, 09/11/2020 mammogram, 08/15/2019 mammogram, and 10/26/2021 mammogram - [facility]. Both breasts are heterogeneously dense, which may obscure small masses (category c / 51-75% glandular tissue). There are benign post operative changes in the left breast. No significant masses, calcifications, or other findings are seen in either breast. IMPRESSION: BENIGN There is no mammographic evidence of malignancy. A 1 year screening mammogram is recommended. This exam was interpreted at Station ID: [id number]. NOTE: For mammograms, a report in lay terms will be sent to the patient. Approximately 15% of breast malignancies will not be visualized mammographically. In the management of a palpable breast mass, a negative mammogram must not discourage biopsy of a clinically suspicious lesion. Electronically Signed By: Pablo ansari/shahram:10/17/2022 13:43:53 copy to: JAMES CANSECO letter sent: Normal Exam ACR BI-RADS Category 2: Benign Finding(s) 3342F
== END ==
PROVIDERS: Family Provider Nurse Practitioner; PCP Nurse Practitioner; Referring Provider Internal Medicine Hematology & Oncology; Visit Provider Internal Medicine Hematology & Oncology
DX: Z98.890 Other specified postprocedural states; Z17.1 Estrogen receptor negative status [ER-]; C50.312 Malignant neoplasm of lower-inner quadrant of left female breast
CPT/HCPCS: 77066; G0279

== ENCOUNTER → 2023-01-24 13:58 | Outpatient (CLI) | payer MEDICARE, OTHER, SELFPAY ==
[2023-01-24 14:50] LABS: Add Manual Diff / Slide Review NO; Basophils Absolute Auto 100 /uL (0-100); Basophils Percent Auto 1.1 % (0-2); Eosinophils Absolute Auto 100 /uL (0-450); Eosinophils Percent Auto 1.4 % (2-4); Hematocrit 38.3 % (36-46); Hemoglobin 12.9 g/dL (12.0-16.0); Lymphocytes Absolute Auto 1500 /uL (1100-4500); Lymphocytes Percent Auto 26.9 % (25-40); Mean Corpuscular HGB Conc 33.6 % (30-36); Mean Corpuscular Hemoglobin 30.4 PG (26-34); Mean Corpuscular Volume 90.4 fL (80-100); Monocytes Absolute Auto 500 /uL (0-900); Monocytes Percent Auto 8.7 % (3-14); Neutrophils Absolute Auto 3500 /uL (1500-7000); Neutrophils Percent Auto 61.9 % (50-75); Platelet Count 251 X10^3/uL (150-400); Red Blood Cell Count 4.23 X10^6/uL (4.0-5.2); Red Cell Distribution Width 13.8 % (11.6-14.8); White Blood Cell Count 5.7 X10^3/uL (4.5-11.0)
[2023-01-24 15:00] LABS: Alanine Aminotransferase 28 IU/L (<35); Albumin 4.1 g/dL (3.5-5.0); Albumin Globulin Ratio 1.4 (1.0-2.8); Alkaline Phosphatase 70 U/L (38-126); Aspartate Aminotransferase 31 IU/L (14-36); BUN Creatinine Ratio 25.3 (6-22); Bilirubin Total 0.6 mg/dL (0.2-1.3); Blood Urea Nitrogen 21 mg/dL (7-17); Calcium 9.3 mg/dL (8.4-10.2); Carbon Dioxide 30 mmol/L (22-32); Chloride 97 mmol/L (98-107); Estimated Glomerular Filt Rate > 60 mL/min (>60); Globulin 2.9 g/dL (1.7-4.1); Glucose 126 mg/dL (80-110); HEMOLYSIS < 15 (0-50); Potassium 3.9 mmol/L (3.4-5.1); Sodium 137 mmol/L (137-145)
[2023-01-24 15:30] LABS: Free T3, Triiodothyronine Free 3.71 pg/mL (2.77-5.27); Free T4, Direct Thyroxine 1.28 ng/dL (0.78-2.19)
[2023-01-24 15:43] LABS: Thyroid Stimulating Hormone 1.59 uIU/mL (0.47-4.68)
== END ==
PROVIDERS: Internal Medicine Hematology & Oncology; Family Provider Nurse Practitioner; PCP Nurse Practitioner; Referring Provider Nurse Practitioner; Visit Provider Nurse Practitioner
DX: F41.8 Other specified anxiety disorders (principal); Z79.899 Other long term (current) drug therapy; C50.919 Malignant neoplasm of unspecified site of unspecified female breast; C50.312 Malignant neoplasm of lower-inner quadrant of left female breast
CPT/HCPCS: 36415; 80053; 84439; 84443; 84481; 85025

== ENCOUNTER 2023-02-08 07:31 | Day surgery (SDC) | payer MEDICARE, OTHER, SELFPAY ==
[2023-02-08] MEDS: LACTATED RINGERS 1,000 ML 100 ML IV (08:02)
[2023-02-08 08:08] VITALS: BP 122/79; PULSE 76; RESP 16; TEMP 36.4; O2SAT 97; BMI 19.1
--- NOTE | 2023-02-08 08:32 | PM.OP.COLON ---
Operative Date/Time/Diagnoses Date of procedure: 02/08/23 Pre-op diagnosis: See indication and findings Procedure & Clinicians Study performed: Colonoscopy Indications: Screening. History of breast cancer Surgeon: Kenan Kerns Procedure Notes Procedure in detail: After informed consent was obtained the patient was placed in the left lateral decubitus position. The video colonoscope was introduced the rectum slowly advanced cecum. On slow withdrawal mucosa was carefully examined. The scope was removed. The patient tolerated procedure well. Blood loss none Complications none Sedation propofol Findings 1. Few scattered sigmoid diverticula 2. Otherwise negative colonoscopy to cecum Patient should have follow-up colonoscopy in 5-10 years.
--- NOTE | 2023-02-08 08:33 | PM.HP.1 ---
History of Present Illness History of Present Illness Date Patient Seen: 02/08/23 Chief complaint: Screening Colonoscopy Patient History Medical History (Updated 10/31/22 @ 13:09 by Gato Duron MD) Abnormal mammogram Abnormality of left breast on screening mammogram Allergic rhinitis (1979) Cataracts, bilateral (~01/2018) Change in bowel habits Chickenpox (1954) Depression with anxiety Fractures (2015) Infertility (1981) Kidney disease (1960) Left breast mass Malignant neoplasm of left breast Measles (1954) Mumps (1955) Osteopenia (2005) Port-A-Cath in place Rosacea (1990) Triple negative malignant neoplasm of breast Vaginal atrophy Surgical History History of biopsy (~11/2021) History of lumpectomy of left breast Hx of colonoscopy Hx of laparoscopy (1984) Hx of urethrotomy (10/1970) Family & Social History Family History Father Cancer Heart disease Hypertension Grandmother Stroke Sister Age: 77 Cancer Sister Age: 73 Hypertension Mother No problems noted. Social History: household members spouse Tobacco & Substance use: Smoking Status Never smoker alcohol intake current alcohol intake frequency holiday/special occasion Substance Use Type does not use Meds Home Medications and Allergies Home Medications Medication Instructions Recorded Confirmed Type calcium carbonate 600 mg calcium 1,500 mg PO BID 05/21/18 01/30/23 History (1,500 mg) tablet (Calcium) cholecalciferol (vitamin D3) 25 3,000 unit PO DAILY 05/21/18 01/30/23 History mcg (1,000 unit) capsule (Vitamin D3) turmeric (bulk) 95 % powder 500 mg miscellaneous BID 05/21/18 02/08/23 History (Curcumin) Bone up 3 cap PO .HS 09/27/21 02/08/23 History sertraline 50 mg tablet See Rx Instructions .Route 02/21/22 02/08/23 Rx .COMPLEX #90 tabs Allergies Allergy/AdvReac Type Severity Reaction Status Date / Time Sulfa (Sulfonamide Allergy Unknown Rash Verified 02/08/23 07:54 Antibiotics) [SULFA (SULFONAMIDE ANTIBIOTICS)] fluoxetine AdvReac Mild Verified 02/08/23 07:54 Exam Vital Signs (past 8 hours): - 03/15/23 08:08 Temperature 97.6 F Pulse Rate 76 Respiratory Rate 16 Blood Pressure 122/79 Pulse Oximetry 97 Oxygen Delivery Method Room Air Oxygen Delivery Method Room Air Narrative Exam Narrative: Oropharynx free of lesions Chest clear to auscultation percussion Cardiac exam revealed no S3 or murmur Assessment & Plan Assessment & Plan narrative: Need for screening for colon cancer with triple negative breast cancer. Risks benefits and alternatives have been explained. Time Spent With Patient Critical Care time: I spent a total of [] minutes of critical care time on this patient's care today; this time is exclusive of procedural time.
[2023-02-08 08:59] VITALS: BP 112/72; PULSE 68; RESP 16; TEMP 36.3; O2SAT 98
[2023-02-08 09:04] VITALS: BP 109/72; PULSE 68; RESP 16; O2SAT 100
[2023-02-08 09:09] VITALS: BP 119/77; PULSE 64; RESP 14; O2SAT 100
[2023-02-08 09:14] VITALS: BP 119/76; PULSE 63; RESP 16; TEMP 36.8; O2SAT 100
== END 2023-02-08 09:32 | disposition home or self-care (01) ==
PROVIDERS: Family Provider Nurse Practitioner; PCP Nurse Practitioner; Referring Provider Internal Medicine Gastroenterology; Visit Provider Internal Medicine Gastroenterology
PROC: 0DJD8ZZ Inspection of Lower Intestinal Tract, Via Natural or Artificial Opening Endoscopic (ICD-10-PCS; CPT 45378; principal; 2023-02-08 08:30)
DX: Z12.11 Encounter for screening for malignant neoplasm of colon (principal); Z85.3 Personal history of malignant neoplasm of breast; K57.30 Diverticulosis of large intestine without perforation or abscess without bleeding
CPT/HCPCS: G0121; J2704

== ENCOUNTER → 2023-07-17 14:19 | Outpatient (CLI) | payer MEDICARE, OTHER, SELFPAY ==
--- NOTE | 2023-07-17 | DI.RAD.S_ITS ---
Bone Density Report Name: COLT ANDREW Age: 73 Sex: Female Ethnicity: White Date of : 1950 Indication: osteopenia; monitoring treatment; Referring Provider: DUONG REYNA Study: Bone densitometry was performed. Exam Date: July 17, 2023 Accession number: [id number] Bone Density: Region BMD T-score Z-score Classification AP Spine(L2, L3, L4) 0.892 -1.7 0.6 Osteopenia Femoral Neck (Left) 0.623 -2.0 -0.1 Osteopenia Total Hip (Left) 0.690 -2.1 -0.4 Osteopenia Femoral Neck (Right) 0.629 -2.0 -0.1 Osteopenia Total Hip (Right) 0.714 -1.9 -0.2 Osteopenia Total Hip Mean 0.702 -2.0 -0.3 Osteopenia World Health Organization criteria for BMD impression classify patients as: Normal (T-score at or above -1.0), Osteopenia (T-score between -1.0 and -2.5), or Osteoporosis (T-score at or below -2.5). 10-year Fracture Risk: FRAX not reported because: Treated for osteoporosis Previous Exams: -- Region Exam Age BMD T-score BMD Change BMD Change Date g/cm2 vs Baseline vs Previous -- AP Spine (L2-L4) 07/17/2023 73 0.892 -1.7 -0.037 (-4.0%)# -0.037 (-4.0%)# 09/20/2021 71 0.929 -1.4 Total Hip(Left) 07/17/2023 73 0.690 -2.1 0.002 (0.3%)# 0.002 (0.3%)# 09/20/2021 71 0.688 -2.1 Total Hip(Right) 07/17/2023 73 0.714 -1.9 -0.035 (-4.7%)# -0.035 (-4.7%)# 09/20/2021 71 0.749 -1.6 -- *Denotes significance at 95% confidence level, LSC for AP Spine = 0.022 g/cm2, LSC for Total Hip = 0.027 g/cm2 # Denotes dissimilar scan types or analysis methods Impression: The patient has low bone mass, based on the Left Total Hip T-score. No significant bone loss was observed. Discussion: PATIENT UNDER TREATMENT WITH NO SIGNIFICANT BMD LOSS SINCE LAST EXAM. In an untreated patient, BMD typically declines with age. A lack of decline or gain is usually a sign that treatment is efficacious and fracture risk is reduced. It is important to ask patients whether they are taking their medications and to encourage continued and appropriate compliance with their osteoporosis therapies to reduce fracture risk. It is also important to review their risk factors and encourage appropriate calcium and vitamin D intakes, exercise, fall prevention and other lifestyle measures. Follow-Up: Consider a repeat BMD and Vertebral Fracture Assessment (VFA) exam in 2 years or sooner if medically necessary, to reassess this patient's status. Reported by: NESS STEPHENS MD on 07/17/2023 3:19:00 PM.
== END ==
PROVIDERS: Family Provider Nurse Practitioner; PCP Nurse Practitioner; Referring Provider Internal Medicine Endocrinology, Diabetes & Metabolism; Visit Provider Internal Medicine Endocrinology, Diabetes & Metabolism
DX: M81.0 Age-related osteoporosis without current pathological fracture (principal); Z79.83 Long term (current) use of bisphosphonates
CPT/HCPCS: 77080

== ENCOUNTER → 2023-10-30 12:10 | Outpatient (CLI) | payer MEDICARE, OTHER, SELFPAY ==
--- NOTE | 2023-10-30 12:12 | DI.RAD.S_ITS ---
PROCEDURE: XR CHEST 2V INDICATIONS: Worsening intermittently productive cough TECHNIQUE: 2 views of the chest were acquired. COMPARISON: [facility], CR, XR CHEST 1V, 01/11/2022, 13:19. FINDINGS: Surgical changes and devices: Left breast clips. Lungs and pleura: Lungs are clear. No pleural effusions or pneumothorax. Mediastinum: Mediastinal contours are normal. Heart size is normal. Bones and chest wall: No suspicious bony abnormalities. Soft tissues appear unremarkable. IMPRESSION: No acute cardiopulmonary abnormality is seen. Dictated by: German Saunders M.D. on 10/30/2023 at 13:46 Approved by: German Saunders M.D. on 10/30/2023 at 13:47
== END ==
PROVIDERS: Family Provider Nurse Practitioner; PCP Nurse Practitioner; Referring Provider Family Medicine; Visit Provider Family Medicine
DX: J40 Bronchitis, not specified as acute or chronic (principal)
CPT/HCPCS: 71046

== ENCOUNTER → 2023-11-02 16:27 | Outpatient (CLI) | payer MEDICARE, OTHER, SELFPAY ==
[2023-11-02 18:49] LABS: Free T3, Triiodothyronine Free 3.32 pg/mL (2.77-5.27); Free T4, Direct Thyroxine 1.24 ng/dL (0.78-2.19)
== END ==
PROVIDERS: Family Provider Nurse Practitioner; PCP Nurse Practitioner; Referring Provider Nurse Practitioner; Visit Provider Nurse Practitioner
DX: E04.9 Nontoxic goiter, unspecified (principal)
CPT/HCPCS: 36415; 84439; 84443; 84481

== ENCOUNTER → 2023-11-06 09:47 | Outpatient (CLI) | payer MEDICARE, OTHER, SELFPAY ==
--- NOTE | 2023-11-06 09:50 | DI.US.S_ITS ---
PROCEDURE: US THYROID INDICATIONS: thyroid nodule TECHNIQUE: Real-time scanning was performed of the thyroid gland, with image documentation. COMPARISON: None. FINDINGS: Right: Thyroid lobe measures 4.5 x 1.2 x 1.5 cm, and is homogeneous in echotexture. Left: Thyroid lobe measures 4.1 x 1.4 x 1 cm, and is homogenous in echotexture. Isthmus: 0.3 cm thick. Nodule number: 1 Location: Right mid Size: 0.3 x 0.3 x 0.4 cm Composition: Cystic Echogenicity: Anechoic Shape: wider than tall. Margins: Smooth Echogenic foci: None Total points: 0 ACR TI-RADS category: 1 Nodule number: 2 Location: Left mid Size: 0.5 x 0.2 x 0.4 cm. Composition: Cystic Echogenicity: Hypoechoic Shape: wider than tall. Margins: Smooth Echogenic foci: Macro calc Total points: 3 ACR TI-RADS category: 3 IMPRESSION: Left mid TIRADS-3 nodule. Based on size, recommend follow-up in 1 year. ACR TI-RADS definitions and recommendations: TI-RADS 1 (benign): 0 points. FNA not needed. TI-RADS 2 (not suspicious): 2 points. FNA not needed. TI-RADS 3 (mildly suspicious): 3 points. * FNA if 2.5 cm or larger, follow up if 1.5 cm or larger (at 1, 3, and 5 years). TI-RADS 4 (moderately suspicious): 4-6 points. * FNA if 1.5 cm or larger, follow up if 1 cm or larger (at 1, 2, 3, and 5 years). TI-RADS 5 (highly suspicious): 7 points or more. * FNA if 1 cm or larger, follow up if 0.5 cm or larger (every year for 5 years). Dictated by: Jasmin Miller M.D. on 11/06/2023 at 13:46 Approved by: Jasmin Miller M.D. on 11/06/2023 at 13:53
== END ==
PROVIDERS: Family Provider Nurse Practitioner; PCP Nurse Practitioner; Referring Provider Nurse Practitioner; Visit Provider Nurse Practitioner
DX: E04.2 Nontoxic multinodular goiter (principal)
CPT/HCPCS: 76536

== ENCOUNTER → 2024-05-09 08:26 | Outpatient (CLI) | payer MEDICARE, OTHER, SELFPAY ==
[2024-05-09 10:49] LABS: Cholesterol 157 mg/dL (140-199); HDL Cholesterol 74 mg/dL (40-60); LDL Cholesterol Calculated 67 mg/dL (<100); Triglycerides 82 mg/dL (35-150)
[2024-05-09 17:46] LABS: Hep C Virus Ab w/Reflex Quant NEGATIVE s/c (NEGATIVE)
== END ==
LOC: LAB 08:27
PROVIDERS: Family Provider Nurse Practitioner; PCP Nurse Practitioner; Referring Provider Nurse Practitioner; Visit Provider Nurse Practitioner
DX: Z11.59 Encounter for screening for other viral diseases (principal); Z13.6 Encounter for screening for cardiovascular disorders
CPT/HCPCS: 36415; 80061; 86803

== ENCOUNTER → 2024-10-18 07:30 | Outpatient (CLI) | payer MEDICARE, OTHER, SELFPAY ==
--- NOTE | 2024-10-18 07:31 | DI.US.S_ITS ---
PROCEDURE: US THYROID INDICATIONS: 1 year f/up thyroid nodule TECHNIQUE: Real-time scanning was performed of the thyroid gland, with image documentation. COMPARISON: [facility], US, US THYROID, 11/06/2023, 9:59. FINDINGS: Thyroid: Right lobe measures 3.7 x 1.5 x 1.4 cm. Left lobe measures 3.9 x 1.4 x 1.1 cm. Isthmus is 0.3 cm thick. Echotexture is homogeneous. Multiple small colloid cysts. The previously measured colloid cysts are not significantly changed in size. These measure less than 0.5 cm. IMPRESSION: Multiple small colloid cysts are not significantly changed. These measure less than 0.5 cm. No further follow-up is required. ACR TI-RADS definitions and recommendations: TI-RADS 1 (benign): 0 points. FNA not needed. TI-RADS 2 (not suspicious): 2 points. FNA not needed. TI-RADS 3: 3 points. * FNA if 2.5 cm or larger, follow up if 1.5 cm or larger (at 1, 3, and 5 years). TI-RADS 4: 4-6 points. * FNA if 1.5 cm or larger, follow up if 1 cm or larger (at 1, 2, 3, and 5 years). TI-RADS 5: 7 points or more. * FNA if 1 cm or larger, follow up if 0.5 cm or larger (every year for 5 years). Dictated by: German Saunders M.D. on 10/19/2024 at 10:00 Approved by: German Saunders M.D. on 10/19/2024 at 10:04
== END ==
PROVIDERS: Family Provider Nurse Practitioner; PCP Family Medicine; Referring Provider Nurse Practitioner; Visit Provider Nurse Practitioner
DX: E04.1 Nontoxic single thyroid nodule (principal)
CPT/HCPCS: 76536

== ENCOUNTER → 2025-05-22 09:13 | Outpatient (CLI) | payer MEDICARE, OTHER, SELFPAY ==
[2025-05-22 10:36] LABS: Add Manual Diff / Slide Review NO; Basophils Absolute Auto 100 /uL (0-100); Eosinophils Absolute Auto 100 /uL (0-450); Eosinophils Percent Auto 2.2 % (2-4); Hematocrit 40.3 % (36-46); Hemoglobin 13.5 g/dL (12.0-16.0); Lymphocytes Absolute Auto 1300 /uL (1100-4500); Lymphocytes Percent Auto 26.1 % (25-40); Mean Corpuscular HGB Conc 33.3 % (30-36); Mean Corpuscular Hemoglobin 31.1 PG (26-34); Mean Corpuscular Volume 93.4 fL (80-100); Monocytes Absolute Auto 500 /uL (0-900); Monocytes Percent Auto 9.8 % (3-14); Neutrophils Absolute Auto 3100 /uL (1500-7000); Neutrophils Percent Auto 60.9 % (50-75); Platelet Count 250 X10^3/uL (150-400); Red Blood Cell Count 4.32 X10^6/uL (4.0-5.2); Red Cell Distribution Width 13.4 % (11.6-14.8); White Blood Cell Count 5.1 X10^3/uL (4.5-11.0)
[2025-05-22 11:08] LABS: Alanine Aminotransferase 23 IU/L (<35); Albumin 4.1 g/dL (3.5-5.0); Albumin Globulin Ratio 1.5 (1.0-2.8); Alkaline Phosphatase 60 U/L (38-126); Aspartate Aminotransferase 36 IU/L (14-36); BUN Creatinine Ratio 26.1 (6-22); Bilirubin Total 0.7 mg/dL (0.2-1.3); Blood Urea Nitrogen 24 mg/dL (7-17); Calcium 9.5 mg/dL (8.4-10.2); Carbon Dioxide 30 mmol/L (22-32); Chloride 104 mmol/L (98-107); Cholesterol 156 mg/dL (140-199); Estimated Glomerular Filt Rate > 60 mL/min (>60); Globulin 2.8 g/dL (1.7-4.1); Glucose 91 mg/dL (70-99); HDL Cholesterol 74 mg/dL (40-60); HEMOLYSIS < 15 (0-50); LDL Cholesterol Calculated 68 mg/dL (<100); Potassium 4.6 mmol/L (3.4-5.1); Sodium 140 mmol/L (137-145); Total Protein 6.9 g/dL (6.3-8.2); Triglycerides 70 mg/dL (35-150)
== END ==
PROVIDERS: PCP Family Medicine; Referring Provider Family Medicine; Visit Provider Family Medicine
DX: Z00.00 Encounter for general adult medical examination without abnormal findings (principal); Z13.220 Encounter for screening for lipoid disorders; F41.8 Other specified anxiety disorders; E78.5 Hyperlipidemia, unspecified
CPT/HCPCS: 36415; 80053; 80061; 85025

== ENCOUNTER → 2025-08-01 10:48 | Outpatient (CLI) | payer MEDICARE, OTHER, SELFPAY ==
--- NOTE | 2025-08-01 10:50 | DI.RAD.S_ITS ---
PROCEDURE: XR DEXA AXIAL SKELETON INDICATIONS: osteopenia COMPARISON: [facility], CR, XR DEXA AXIAL SKELETON, 07/17/2023, 14:46. FINDINGS: Lumbar Spine: Bone mineral density 0.844 (previously 0.892) g/cm2, T score -2.1 (previously -1.7). Left Femoral Neck: Bone mineral density 0.609 (previously 0.623) g/cm2, T score -2.2 (previously -2.0). Left Hip: Bone mineral density 0.690 (previously 0.690) g/cm2, T score -2.1 (previously -2.1). Fracture Risk Calculation (when applicable): 10-year fracture risk of a major osteoporotic fracture 12 percent and of a hip fracture 3.3 percent. (T score greater or equal to -1.0 to: NORMAL) (T score from -1.1 to -2.4: OSTEOPENIA) (T score less than or equal to -2.5: OSTEOPOROSIS) IMPRESSION: Osteopenia--- recommend repeat DEXA in 2-3 years for reassessment. Follow-up guidelines as follows: Osteoporosis: Consider a repeat DEXA and Vertebral Fracture Assessment (VFA) exam in 2 years or sooner if medically necessary, to reassess this patient's status. Osteopenia: Consider a repeat DEXA in 2-3 years to reassess this patient's status, or if there is a new clinical indication. Normal: Consider a repeat DEXA in 5 years or sooner, or if there is a new clinical indication. All treatment decisions require clinical judgment and consideration of individual patient factors, including patient preferences, comorbidities, previous drug use, risk factors not captured in the FRAX model (e.g., frailty, falls, vitamin D deficiency, increased bone turnover, interval significant decline in bone density ) and possible under- or over-estimation of fracture risk by FRAX. In addition, the NOF Guide recommends that FDA-approved medical therapies be considered in postmenopausal women and men age >= 50 years with a: * Hip or vertebral (clinical or morphometric) fracture * T-score of <=-2.5 at the spine or hip * Ten-year fracture probability by FRAX of >= 3% for hip fracture or >=20% for major osteoporotic fracture. Dictated by: Ilia Bell M.D. on 08/01/2025 at 19:58 Approved by: Ilia Bell M.D. on 08/01/2025 at 20:00
== END ==
LOC: RAD 10:49
PROVIDERS: PCP Family Medicine; Referring Provider Family Medicine; Visit Provider Family Medicine
DX: M85.89 Other specified disorders of bone density and structure, multiple sites (principal); Z78.0 Asymptomatic menopausal state
CPT/HCPCS: 77080